=== PATIENT | male | born 1935 | race Caucasian/White ===

== ENCOUNTER → 2016-07-12 | Outpatient (CLI) | payer MEDICARE, OTHER ==
[2016-02-04 05:05] VITALS: BP 160/76
[~2016-07-12] MED LIST: ACET500T68 PO; BUPIVACAINE MPF 0.25% 10 ML VIAL. ONE; CELE200C PO; CHOL2000 PO; CYCL5TAB PO; FINA5TAB PO; FINA5TAB4 PO; HYDR-2666 PO; IOHEXOL 180 MG/ML 10 ML VIAL. ONE; MELO-156 PO; MULT-658 PO; MULT-659 PO; OMEP20CA9 PO; OMEP20TA PO; ONDA4TAB7 PO; SIMV10TA3 PO; SIMV80TA PO; [UNRECOGNIZED DRUG - CODE] PO; methylPREDNISolone ACETATE 40 MG/ML VIAL. ONE; methylPREDNISolone ACETATE 80 MG/ML VIAL. ONE
--- NOTE | 2016-07-13 06:52 | PAIN ---
DATE OF SERVICE: 07/12/2016 PROGRESS NOTE FOR PAIN CLINIC DIAGNOSES: 1. Cervical radiculopathy with cervical degenerative disk disease. 2. Lumbar radiculopathy with lumbar degenerative disk disease, spinal stenosis and spondylosis. HISTORY OF PRESENT ILLNESS: The patient is a 80-year-old male who returns for followup status post lumbar epidural steroid injections x 2, second one on 03/16/2016. The patient reports he did very well with this, about 50% improvement in his low back and right leg pain. The pain is returning now over the past 3-4 weeks, increase in right-sided low hip and gluteus, radiating into the posterior gluteus, posterior thigh and feels like it is in the bone on the right side by his description, anywhere from a 3 to an 8 on a scale of 10, worse with walking, worse with sitting, but does not awaken him from sleep at night. The patient feels better when he is ambulating for a shorter period of time, but also does a lot of ballroom dancing and when he is dancing, he does not have any pain that he notices in this area of the right hip posteriorly. The patient reports still some pain down the leg, but across the back, but also very much improved with activities such as dancing and bowling, it does not bother him as well either. The patient reports no new motor or sensory deficits, no new bowel or bladder incontinence or other complaints. PHYSICAL EXAMINATION: VITAL SIGNS: The patient's blood pressure is 122/70, pulse 52, respirations 18, temperature is 98.2 degrees Fahrenheit, height is 5 feet 11 inches, weight is 204 pounds. GENERAL: The patient is awake, alert, oriented, appropriate, has a very pleasant demeanor. HEENT: Shows normocephalic, atraumatic. Extraocular movements intact, symmetrical. Oral cavity, his mucous membranes are moist and pink. Dentition is intact. NECK: Shows anterior throat supple. Swallow reflex is symmetrical. Neck shows good rotational motion including extension and flexion as well as right and left lateral rotation without significant pain reported. CHEST: Shows normal on inspection. Breath sounds are clear to auscultation bilaterally. HEART: Shows S1 and S2 clear. No murmurs auscultated. ABDOMEN: Soft, nontender, nondistended. No palpable organomegaly is noted. No rebound or guarding demonstrated. BACK: Shows spine grossly in the midline. Lumbar paraspinous musculature is symmetrical in appearance, with palpation is moderately tender in the low lumbar distribution, but only diffusely, also some significant tenderness over the posterior superior iliac spine on the right side with direct palpation, but not over the sacroiliac region inferior to this and some mild tenderness in the gluteus musculature just lateral to this, posterior superior iliac spine as well. EXTREMITIES: Lower extremities show deep tendon reflexes 1+ in the patellar and tendo calcaneus tendons, are equal. Motor exam is strong with 5/5 dorsiflexion and extension and is equal and symmetrical. PLAN: Options were discussed with the patient. The patient's old chart was reviewed as was his current medication regimen and updated. Current review of systems updated today as well. We will proceed with the third in the series of lumbar epidural steroid injection under fluoroscopic guidance. Risks were again discussed including, but not limited to bleeding, infection, possibility of epidural hematoma, subsequent neurological compromise, dural puncture, headaches, spinal cord and/or nerve damage, side effects of steroid medication and poor results regarding pain control. The patient understands and wishes to proceed. The patient will return to the clinic in approximately 2 weeks for followup, was counseled on his return appointment, activity level and side effects to be aware of. DIAGNOSIS: Lumbar radiculopathy with lumbar degenerative disk disease, spinal stenosis and lumbar spondylosis. PROCEDURE: Lumbar epidural steroid injection in a translaminar approach at the L5-S1 level using C-arm fluoroscopic guidance under sterile prep and drape using local anesthesia. MEDICATIONS INJECTED: 120 mg of Depo-Medrol plus 10 mL of preservative-free normal saline and 2 mL of Isovue for contrast. CONDITION AT DISCHARGE: Stable. The patient tolerated the procedure well, had no complications. LEXI AUGUST MD DR: HENRY/hilary JOB#: [id number] / [id number]
== END | disposition home or self-care (01) ==
LOC: PNCL 10:29
PROVIDERS: ATTEND Anesthesiology
DX: M51.16 Intervertebral disc disorders with radiculopathy, lumbar region (principal); M47.26 Other spondylosis with radiculopathy, lumbar region; M48.06 Spinal stenosis, lumbar region; E78.00 Pure hypercholesterolemia, unspecified; K21.9 Gastro-esophageal reflux disease without esophagitis; M19.90 Unspecified osteoarthritis, unspecified site; Z96.653 Presence of artificial knee joint, bilateral
CPT/HCPCS: 62323; J1030; J1040; J3490

== ENCOUNTER → 2016-09-20 | Outpatient (CLI) | payer MEDICARE, OTHER ==
[2016-02-04 05:05] VITALS: BP 160/76
[~2016-09-20] MED LIST changes: -BUPIVACAINE MPF 0.25% 10 ML VIAL. ONE
--- NOTE | 2016-09-20 10:44 | PAIN ---
DATE OF SERVICE: 09/20/2016 PROGRESS NOTE FOR PAIN CLINIC DIAGNOSES: 1. Cervical radiculopathy with cervical degenerative disk disease. 2. Lumbar radiculopathy with lumbar degenerative disk disease, lumbar spinal stenosis and spondylosis. HISTORY OF PRESENT ILLNESS: The patient is a 81-year-old male who returns for followup status post lumbar epidural steroid injection x 2 on 07/12/2016. The patient reports that he did very well with this with about an 80% improvement in the low back pain and lower extremity pain. The patient reports that since that time however, he has had increasing pain over the past 2-3 weeks, which has been the worst pain, has had in his back that he can remember. The patient reports worse with standing, walking, and changing positions, but better with bowling and better with dancing, which he does actively and does this frequently. The patient reports that standing and lying is significantly causing the pain to be worse - with standing still, the patient reports that the pain is a 10 on a scale of 10 at its worse; at least, it is an 8 on a scale of 10. The patient reports no new motor or sensory deficits, no new bowel or bladder incontinence. He has significant pain across the low back into the bilateral posterior gluteus with standing and walking activities. The patient reports that it is aching, sharp, dull, and severe. PHYSICAL EXAMINATION: VITAL SIGNS: The patient's blood pressure is 147/74, pulse 50, respirations are 18, and temperature is 98.1 degrees Fahrenheit. Height is 5 feet 11 inches and weighs 204 pounds. GENERAL: The patient is awake, alert, oriented, and appropriate, very pleasant demeanor. HEENT: Shows normocephalic, atraumatic. Extraocular movements are intact and symmetrical. The patient wears eye glasses. Oral cavity shows that mucous membranes are moist and pink. Dentition is intact. NECK: Shows that anterior throat is supple without palpable lymphadenopathy noted. Swallow reflex is symmetrical. CHEST: Shows normal on inspection. Breath sounds were clear to auscultation bilaterally. HEART: Shows S1 and S2 clear. ABDOMEN: Soft, nontender, and nondistended. BACK: Shows spine grossly midline. Normal-appearing thoracic kyphosis and lumbar lordotic curvature. Lumbar paraspinous muscle shows symmetrical. On inspection with palpation, shows some mild tenderness with palpation bilaterally with no radiation, but only diffusely in the lower lumbar paraspinous muscles. The patient shows good rotational motion both laterally, as well as extension and flexion. EXTREMITIES: The patient's lower extremities showed deep tendon reflexes 1+ in the patellar and tendocalcaneus tendons. Motor exam is strong with 5/5 dorsiflexion, extension, quadriceps and hamstring flexion and equal. Options were discussed with the patient. The patient's old chart was reviewed, as well as his current medication regimen updated. Current review of systems updated today as well. We will proceed with the lumbar epidural steroid injection, a third in this series. Risks were discussed with the patient including, but not limited to bleeding, infection, possibility of epidural hematoma and subsequent neurologic compromise, dural puncture, headaches, spinal cord and/or nerve damage, side effects of steroid medication, and poor results regarding pain control. The patient understands and wishes to proceed. The patient will return to clinic in approximately 2 weeks for followup. He was counseled as to return appointment, activity level, and side effects to be aware of. DIAGNOSES: Lumbar radiculopathy with lumbar degenerative disk disease, spinal stenosis, and spondylosis. PROCEDURES: Lumbar epidural steroid injection via translaminar approach at the L5-S1 level using C-arm fluoroscopic guidance and sterile prep and drape using local anesthetic. MEDICATION INJECTED: A total of 120 mg of Depo-Medrol plus 10 mL preservative-free normal saline and 2 mL of Isovue for contrast. CONDITION AT DISCHARGE: Stable. The patient tolerated the procedure well, had no complications. LEXI AUGUST MD DR: HENRY/hilary JOB#: [id number] / [id number]
== END | disposition home or self-care (01) ==
LOC: PNCL 08:19
PROVIDERS: ATTEND Anesthesiology
DX: M51.16 Intervertebral disc disorders with radiculopathy, lumbar region (principal); M47.26 Other spondylosis with radiculopathy, lumbar region; M48.06 Spinal stenosis, lumbar region; E78.00 Pure hypercholesterolemia, unspecified; K21.9 Gastro-esophageal reflux disease without esophagitis; M19.90 Unspecified osteoarthritis, unspecified site; Z96.653 Presence of artificial knee joint, bilateral
CPT/HCPCS: 62323; J1030; J1040

== ENCOUNTER → 2016-11-16 | Outpatient (CLI) | payer MEDICARE, OTHER ==
[2016-02-04 05:05] VITALS: BP 160/76
[~2016-11-16] MED LIST changes: +BUPIVACAINE MPF 0.25% 10 ML VIAL. ONE; -HYDR-2666 PO; +HYDR-2758 PO; -IOHEXOL 180 MG/ML 10 ML VIAL. ONE; -MELO-156 PO; +MELO7.5T29 PO; -OMEP20TA PO; +OMEP20TA8 PO; -methylPREDNISolone ACETATE 80 MG/ML VIAL. ONE
--- NOTE | 2016-11-16 10:58 | PN ---
DATE: 11/16/2016 PROGRESS NOTE FOR PAIN CLINIC DIAGNOSES: 1. Cervical radiculopathy with cervical degenerative disk disease. 2. Lumbar radiculopathy with lumbar degenerative disk disease, spinal stenosis and spondylosis. 3. Myofascial pain. HISTORY OF PRESENT ILLNESS: The patient is a 81-year-old male who returns for followup status post lumbar epidural steroid injections x 3, last seen on 09/20/2016. The patient reports he did very well , doing much better; however, about a week ago, he was doing some work at home changing out a window blind where he was required to sit on the sink and rotate his body to the right side, reaching up over his head and strained his muscles in the right neck and shoulder. The patient reports he has had significant pain since that time in the right shoulder to the point where he can barely get dressed, use his right upper extremity or raise it over about 45 degrees from his body when at resting position. The patient reports he is significantly tender in the neck in the shoulder radiating to the upper arm on the right side only. 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 The patient reports his back is doing much better, some tenderness and tightness in the low back, but no radicular pain at this time and is very pleased with his progress. The patient reports no new motor or sensory deficits, no new bowel or bladder incontinence or other complaints. The patient reports the pain has not awakened him from sleep. He has been able to sleep well as long as he keeps his arm to this side. He has not been using a sling or any other immobilizing devices to deal with the arm. The patient rates his pain as an 8-10 on a scale of 10 at its worst in the right shoulder and neck. PHYSICAL EXAMINATION: VITAL SIGNS: Today, the patient's blood pressure is 112/70, pulse is 60, respirations 18, temperature 97.9 degrees Fahrenheit. Height is 5 feet 11 inches, weighs 205 pounds. GENERAL: The patient is awake, alert, oriented, appropriate, has a very pleasant demeanor. HEENT: Head shows normocephalic, atraumatic. The patient wears eye glasses. Extraocular movements are intact, symmetrical. Oral cavity shows mucous membranes moist and pink. NECK: Shows anterior throat supple. CHEST: Shows normal on inspection. Breath sounds are clear to auscultation bilaterally. HEART: Shows S1 and S2 clear. ABDOMEN: Soft, nontender, nondistended. No palpable organomegaly is noted. No rebound or guarding demonstrated. BACK: The patient's back shows spine grossly in the midline with inspection of the cervical paraspinous musculature symmetrical, with palpation shows some moderate tenderness with palpation in the inferior aspect of the cervical paraspinous musculature on the right only and into the superior medial trapezius as well as the lateral trapezius is very firm, rope-like, firm, tender musculature exquisitely tender to palpation, but without specific radiation on the right side with palpation consistent with trigger point areas of musculature. This is true in to the cervical paraspinous muscles as well to the middle distribution, but more in the lower and superior medial and lateral trapezius, left side is supple without tenderness. The patient also shows significant tenderness in the lumbar spine with lumbar paraspinous musculature very firm rope-like musculature, worse on the right than the left as well without specific radiation. Upper extremities show deep tendon reflexes 2+ in the biceps and triceps tendons. Motor exam is strong with cigar head pegger strength rated at 5/5 as is biceps and triceps flexion; however, at abduction of the shoulder past 45 degrees is significantly painful in the base of the neck on the right side in the right superior shoulder. The patient, even with passive motion shows significant tenderness and pulling away from the examining hand with raising the arm over 45 degrees laterally. Left side shows full rotational motion without difficulty at the shoulder. EXTREMITIES: Lower extremities showed deep tendon reflexes 1+ in the patellar and tendo calcaneus tendons. Motor exam is strong with dorsiflexion, extension, quadriceps and hamstring flexion and equal. Peripheral pulses are equal at 2+ in the radial distribution and 1+ posterior tibial bilaterally. No peripheral edema in any of the extremities is noted. Options were discussed with the patient and the patient's old chart was reviewed as his current medication regimen updated. Current review of systems updated today as well and we will proceed with trigger point injections of the right cervical paraspinous musculature, right trapezius as well as the bilateral lumbar paraspinous musculature. Risks were again discussed including, but not limited to bleeding, infection, possibility of intravascular injection sequelae, spread of local anesthetic and numbness, pneumothorax, side effects of steroid medication and poor results regarding pain control. The patient understands and wishes to proceed. The patient will return to clinic in approximately 2 weeks for followup. She was counseled on return appointment, activity levels and side effects to be aware of. Also, counseled the patient on stretching and strengthening exercises, heat and cold application of the shoulder in the low back especially. DIAGNOSIS: Myofascial pain. PROCEDURE: Trigger point injections in the right inferior cervical paraspinous musculature as well as the superior medial and lateral trapezius and bilateral lumbar paraspinous musculature under sterile prep and drape using local anesthetic. Medication injected is a total of 40 mg Depo-Medrol plus 10 mL of 0.25% bupivacaine after negative aspiration at each injection. CONDITION AT DISCHARGE: Stable. The patient tolerated procedure well, had no complications. LEXI AUGUST MD DR: HENRY/hilary JOB#: [id number] / [id number]
== END | disposition home or self-care (01) ==
LOC: PNCL 08:24
PROVIDERS: ATTEND Anesthesiology
DX: M79.1 Myalgia (principal); M51.16 Intervertebral disc disorders with radiculopathy, lumbar region; M47.26 Other spondylosis with radiculopathy, lumbar region; M48.06 Spinal stenosis, lumbar region; M50.10 Cervical disc disorder with radiculopathy, unspecified cervical region; E78.00 Pure hypercholesterolemia, unspecified; K21.9 Gastro-esophageal reflux disease without esophagitis; M19.90 Unspecified osteoarthritis, unspecified site; Z96.653 Presence of artificial knee joint, bilateral; Z88.0 Allergy status to penicillin; Z88.8 Allergy status to other drugs, medicaments and biological substances; Z91.048 Other nonmedicinal substance allergy status; Z79.82 Long term (current) use of aspirin
CPT/HCPCS: 20553; J1030; J3490

== ENCOUNTER 2016-12-05 05:25 | Emergency (ER) | payer MEDICARE, OTHER ==
[~2016-12-05] VITALS: Ht 180.3 cm; Wt 88.9 kg
[~2016-12-05 05:25] MED LIST changes: -BUPIVACAINE MPF 0.25% 10 ML VIAL. ONE; -methylPREDNISolone ACETATE 40 MG/ML VIAL. ONE
--- NOTE | 2016-12-05 05:58 | PHYS DOC ---
Past Medical History Past Medical History: High Cholesterol, Other Additional Past Medical Histor: enlarged prostate, irregular rhythm, ulcers Past Surgical History: Knee Replacement, Tonsillectomy, Other Additional Past Surgical Histo: bilateral knee, adnoidectomy, carpel tunnel surgery Alcohol Use: Rarely Drug Use: None Adult General Chief Complaint Chief Complaint: MULTIPLE COMPLAINTS HPI HPI Patient is a 81 year old male who presents with multiple episodes of diarrhea starting yesterday. Patient describes watery stools with migratory lower abdominal cramping and pain dizziness when standing. No fever chills or sweats. No nausea, vomiting, flank pain, epigastric pain, urinary frequency urgency. No recent antibiotics or known GI illness exposure. No other acute symptoms or complaints. Review of Systems Review of Systems ROS as per HPI. Current Medications Current Medications Current Medications Medications (Trade) Dose Ordered Sig/Pura Start Time Stop Time Status Last Admin Dose Admin Hyoscyamine (Anaspaz) 0.125 mg 1X ONCE 12/05/16 09:30 12/05/16 09:32 DC 12/05/16 09:38 0.125 MG Info (Do NOT chart on this entry -- for MONITORING) 1 each PRN DAILY PRN 12/05/16 07:45 12/07/16 07:44 Iohexol (Omnipaque 300 Mg/ml) 75 ml 1X ONCE 12/05/16 07:45 12/05/16 07:46 DC 12/05/16 07:49 75 ML Ondansetron HCl (Zofran) 4 mg 1X ONCE 12/05/16 06:00 12/05/16 06:01 DC 12/05/16 05:50 4 MG Sodium Chloride 1,000 ml @ 125 mls/hr 1X ONCE 12/05/16 06:00 12/05/16 13:59 12/05/16 05:50 125 MLS/HR Allergies Allergies Allergies Coded Allergies Type Severity Reaction Last Updated Verified Penicillins Allergy Intermediate 10/20/13 Yes mold Allergy Intermediate Swelling, Pt states eyes and nose run, throat becomes scratc 01/31/16 Yes penicillin Allergy Intermediate Rash 01/31/16 Yes aluminum hydroxide Adverse Reaction Mild 03/24/13 Yes aspirin Adverse Reaction Mild 03/24/13 Yes calcium carbonate Adverse Reaction Mild 03/24/13 Yes magnesium Adverse Reaction Mild 03/24/13 Yes Physical Exam Physical Exam L appearing older male no acute distress clear lungs regular rate and rhythm mild bradycardia baseline per patient, mild diffuse abdominal tenderness with no guarding or rebound. No mass or megaly. Nondistended. Normal extremities Constitutional: Well developed, well nourished, no acute distress, non-toxic appearance. [] HENT: Normocephalic, atraumatic, bilateral external ears normal, oropharynx moist, no oral exudates, nose normal. [] Eyes: PERRLA, EOMI, conjunctiva normal, no discharge. [] Neck: Normal range of motion, no tenderness, supple, no stridor. [] Cardiovascular:Heart rate regular rhythm, no murmur [] Lungs & Thorax: Bilateral breath sounds clear to auscultation [] Abdomen: Bowel sounds normal, soft, no distention, increased bowel sounds. [] Skin: Warm, dry, no erythema, no rash. [] Back: No tenderness, no CVA tenderness. [] Extremities: No tenderness, no cyanosis, no clubbing, ROM intact, no edema. [] Neurologic: Alert and oriented X 3, normal motor function, normal sensory function, no focal deficits noted. [] Psychologic: Affect normal, judgement normal, mood normal. [] Current Patient Data Vital Signs Vital Signs Date Time Temp Pulse Resp B/P (MAP) Pulse Ox O2 Delivery O2 Flow Rate FiO2 12/05/16 09:30 48 18 176/88 (117) 95 Room Air 12/05/16 05:37 97.5 97.5 Lab Values Laboratory Tests Test 12/05/16 05:50 12/05/16 06:20 White Blood Count 6.2 x10^3/uL (4.0-11.0) Red Blood Count 4.20 x10^6/uL (4.30-5.70) L Hemoglobin 13.5 g/dL (13.0-17.5) Hematocrit 40.2 % (39.0-53.0) Mean Corpuscular Volume 96 fL (79-100) Mean Corpuscular Hemoglobin 32 pg (25-35) Mean Corpuscular Hemoglobin Concent 34 g/dL (31-37) Red Cell Distribution Width 13.0 % (11.5-14.5) Platelet Count 112 x10^3/uL (140-400) L Neutrophils (%) (Auto) 64 % (31-73) Lymphocytes (%) (Auto) 27 % (24-48) Monocytes (%) (Auto) 8 % (0-9) Eosinophils (%) (Auto) 2 % (0-3) Basophils (%) (Auto) 0 % (0-3) Neutrophils # (Auto) 3.9 x10^3uL (1.8-7.7) Lymphocytes # (Auto) 1.7 x10^3/uL (1.0-4.8) Monocytes # (Auto) 0.5 x10^3/uL (0.0-1.1) Eosinophils # (Auto) 0.1 x10^3/uL (0.0-0.7) Basophils # (Auto) 0.0 x10^3/uL (0.0-0.2) Sodium Level 139 mmol/L (136-145) Potassium Level 3.8 mmol/L (3.5-5.1) Chloride Level 105 mmol/L (98-107) Carbon Dioxide Level 26 mmol/L (21-32) Anion Gap 8 (6-14) Blood Urea Nitrogen 10 mg/dL (8-26) Creatinine 1.0 mg/dL (0.7-1.3) Estimated GFR (Cockcroft-Gault) 72.1 BUN/Creatinine Ratio 10 (6-20) Glucose Level 111 mg/dL (70-99) H Calcium Level 8.6 mg/dL (8.5-10.1) Total Bilirubin 0.8 mg/dL (0.2-1.0) Aspartate Amino Transferase (AST) 20 U/L (15-37) Alanine Aminotransferase (ALT) 26 U/L (16-63) Alkaline Phosphatase 37 U/L (46-116) L Total Protein 6.6 g/dL (6.4-8.2) Albumin 3.6 g/dL (3.4-5.0) Albumin/Globulin Ratio 1.2 (1.0-1.7) Lipase 158 U/L (73-393) Urine Collection Type Unknown Urine Color Yellow Urine Clarity Clear Urine pH 6.0 Urine Specific Nathalie 1.010 Urine Protein Negative mg/dL (NEG-TRACE) Urine Glucose (UA) Negative mg/dL (NEG) Urine Ketones (Stick) Negative mg/dL (NEG) Urine Blood Negative (NEG) Urine Nitrite Negative (NEG) Urine Bilirubin Negative (NEG) Urine Urobilinogen Dipstick 0.2 mg/dL (0.2 mg/dL) Urine Leukocyte Esterase Negative (NEG) Urine RBC 0 /HPF (0-2) Urine WBC 0 /HPF (0-4) Urine Squamous Epithelial Cells Few /LPF Urine Bacteria 0 /HPF (0-FEW) Urine Mucus Slight /LPF Laboratory Tests 12/05/16 05:50 Laboratory Tests 12/05/16 05:50 EKG EKG [] Radiology/Procedures Radiology/Procedures [] Course & Med Decision Making Course & Med Decision Making Pertinent Labs and Imaging studies reviewed. (See chart for details) Work up in progress. Care endorsed to oncoming ERP at 600.] BENJY Biggs attending note Dr. Dilan Wilkinson. Care assumed by me at 06 100 for clinical reevaluation and to follow lab results and CT scan, correlate clinically and disposition patient Upon my evaluation patient was well-appearing smiling comfortable without complaint. He has intermittent crampy pain which was resolved at that time. He had some mild nausea which was also resolved. No bloody stool or black stool. He 's hemodynamically stable with his baseline of chronic bradycardia. Patient does have some diffuse abdominal tenderness without guarding or rebound mass or megaly he has normal bowel sounds. We will do CT abdomen and pelvis with contrast for full evaluation. Return results unremarkable. Patient remains clinically stable and well- appearing. CT results show prominent appendix howeverhe call inflammatory changes or secondary signs of appendicitis. Patient also has diverticulosis but no evidence of diverticulitis. Mild evidence of nonspecific colitis without complication. Reevaluation patient with mild right lower quadrant tenderness but no guarding or rebound. Given equivocal findings regarding appendix on CT, case discussed with Dr. Lara surgeon on-call. Dr. Lara provided stat consultation in the emergency department and saw the patient examined him and discussed the case at length. Given the very low suspicion of acute appendicitis , all parties are comfortable with outpatient follow-up tomorrow in Dr. Lara' s office. It appears that the patient most likely has a viral syndrome with a nonspecific colitis. He is hemodynamically stable able to tolerate by mouth and has no symptoms or pain on reevaluation prior to discharge. Patient is able to ambulate without difficulty. He has family agree with outpatient follow-up tomorrow and strict return precautions given. Patient will be dispensed for Zofran and Levsin for use as needed. Dr. Lara agrees and robotics not clinically indicated for this patient Dragon Disclaimer Dragon Disclaimer This electronic medical record was generated, in whole or in part, using a voice recognition dictation system. Departure Departure Impression: Primary Impression: Non-specific colitis Additional Impressions: Diarrhea Viral syndrome Abdominal pain Diverticulosis Disposition: 01 HOME, SELF-CARE Condition: STABLE Referrals: DILAN DENNEY MD (PCP) Patient Instructions: Abdominal Pain (Nonspecific), Colitis, Diverticulosis, Viral Gastroenteritis Additional Instructions: It appears that you're diarrhea and nausea are result of gastroenteritis. This is an abdominal infection characterized by nausea, often with vomiting, as well as diarrhea. It is typically caused by a viral infection and should get better on its own. He sure to stay well hydrated by drinking plenty of nonalcoholic fluids. Take Zofran under your tongue as needed for nausea every 4 hours. Use less than under your tongue 3 times a day as needed for crampy abdominal pain. Follow-up with Dr. Mancini in his office tomorrow as scheduled for reevaluation and further treatment as needed. Return immediately for new severe or worsening symptoms Scripts Ondansetron (ZOFRAN ODT) 4 Mg Tab.rapdis 1 TAB SL Q4HRS Y for VOMITING, #15 TAB Prov: DILAN WILKINSON MD 12/05/16 Hyoscyamine Sulfate (LEVSIN-SL) 0.125 Mg Tab.subl 0.125 MG SL TID Y for crampy abdominal pain, #21 TAB Prov: DILAN WILKINSON MD 12/05/16 Ondansetron (ZOFRAN ODT) 4 Mg Tab.rapdis 1 TAB SL Q4HRS Y for VOMITING, #15 TAB Prov: DILAN WILKINSON MD 12/05/16 Hyoscyamine Sulfate (LEVSIN-SL) 0.125 Mg Tab.subl 0.125 MG SL TID, #21 TAB Prov: DILAN WILKINSON MD 12/05/16 Problem Qualifiers EDWIN FONSECA DO Dec 05, 2016 05:58 DILAN WILKINSON MD Dec 05, 2016 07:52
[2016-12-05] MEDS ORDERED: ONDANSETRON PF 4 MG/2 ML VIAL. IV ONE (06:00)
[2016-12-05] MEDS ORDERED: IV NORMAL SALINE 1000ML BAG 1,000 ML IV ONE (06:00)
[2016-12-05 06:13] LABS: BASO % 0 % (0-3); EOS % 2 % (0-3); HEMATOCRIT 40.2 % (39.0-53.0); HEMOGLOBIN 13.5 g/dL (13.0-17.5); LYMPH # 1.7 x10^3/uL (1.0-4.8); LYMPH % 27 % (24-48); MEAN CORPUSCULAR HEMOGLOBIN 32 pg (25-35); MEAN CORPUSCULAR HGB CONC 34 g/dL (31-37); MEAN CORPUSCULAR VOLUME 96 fL (79-100); MONO % 8 % (0-9); NEUT % 64 % (31-73); PLATELET COUNT 112 x10^3/uL (140-400); WHITE BLOOD COUNT 6.2 x10^3/uL (4.0-11.0)
[2016-12-05 06:18] LABS: CALCIUM 8.6 mg/dL (8.5-10.1); GFR 72.1; POTASSIUM 3.8 mmol/L (3.5-5.1)
[2016-12-05 06:24] LABS: ALBUMIN 3.6 g/dL (3.4-5.0); ALBUMIN/GLOBULIN RATIO 1.2 (1.0-1.7); TOTAL BILIRUBIN 0.8 mg/dL (0.2-1.0); TOTAL PROTEIN 6.6 g/dL (6.4-8.2)
[2016-12-05 06:47] LABS: BILIRUBIN,URINE NEGATIVE (NEG); GLUCOSE,URINE NEGATIVE (NEG); NITRITE,URINE NEGATIVE (NEG); PROTEIN,URINE NEGATIVE (NEG-TRACE); UROBILINOGEN,URINE 0.2 mg/dL (0.2 mg/dL)
[2016-12-05 07:02] LABS: BACTERIA,URINE 0 /HPF (0-FEW); RBC,URINE 0 /HPF (0-2); SQUAMOUS EPITHELIAL CELL,UR FEW /LPF; WBC,URINE 0 /HPF (0-4)
[2016-12-05] MEDS ORDERED: IOHEXOL 300 MG/ML 75 ML VIAL IV ONE (07:45)
[2016-12-05] MEDS ORDERED: CONTRAST GIVEN MC PRN (07:45)
--- NOTE | 2016-12-05 08:17 | RAD ---
CT abdomen/pelvis with IV contrast Indication: 81-year-old male with abdominal pain and diarrhea. History of ulcers. Technique: CT abdomen/pelvis with 75 mL of Omnipaque 300 with multi planar reformats. Comparison: Previous CT from 09/13/2011 Findings: Heart is normal in size. No pericardial or pleural effusion. Clear lung bases. 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 No other liver lesions. Spleen is top normal in size without focal lesion. No radiopaque gallstones. No pericholecystic fluid of abnormal thickening. Pancreas is within normal limits without peripancreatic inflammatory changes. Adrenal glands show no nodularity. Mild bilateral perinephric stranding densities, nonspecific. No renal stones. No hydronephrosis. No pathologically enlarged abdominal or pelvic adenopathy. Small sliding hiatal hernia. No bowel obstruction. Sigmoid colon diverticulosis. Diffuse mild wall thickening of the sigmoid and rectosigmoid colon may be secondary to suboptimal distention. Appendix is visualized measuring 7 mm in diameter without periappendiceal inflammatory changes or appendicolith Scattered atherosclerotic disease of abdominal aorta noted. Calcified plaque seen at the origin of the celiac axis and SMA. Bladder show no focal lesion. Prostate is not enlarged. No suspicious bony lesions. Degenerative disc disease noted at L1-L2. Lower lumbar spine facet arthropathy. Impression: 1. Mildly prominent appendix, nonspecific. No periappendiceal inflammatory changes to suggest acute appendicitis. 2. Sigmoid diverticulosis. Diffuse mild wall thickening of the sigmoid colon may be secondary to suboptimal distention or submucosal edema. No pericolic inflammatory changes. PQRS Compliance Statement: One or more of the following individualized dose reduction techniques were utilized for this examination: 1. Automated exposure control 2. Adjustment of the mA and/or kV according to patient size 3. Use of iterative reconstruction technique
[2016-12-05] MEDS ORDERED: HYOSCYAMINE 0.125 MG TAB.RAPDIS PO ONE (09:30)
[2016-12-05] MEDS ORDERED: HYOS0.1265 SL ×2 (10:39→11:17)
[2016-12-05] MEDS ORDERED: ONDA4TAB10 SL ×2 (10:39→11:17)
--- NOTE | 2016-12-05 10:53 | PDOC2 ---
CONSULT Date of Consult Date of Consult DATE: 12/05/16 TIME: 10:45 Reason for Consult Reason for Consult: abdominal pain, diarrhea Referring Physician Referring Physician: Minh Identification/Chief Complaint Chief Complaint abd pain, diarrhea Problems: Source Source: Patient History of Present Illness Reason for Visit: 81 yo M with one day history of diffuse crampy abd pain, profuse watery diarrhea. Denies sick exposures or unusual food. Denies N/V, denies anorexia Past Medical History Cardiovascular: Hyperlipidemia GI: GERD Past Surgical History Past Surgical History: Total knee replacement (bilateral), Other Family History Family History: No Significant Social History Quit ALCOHOL: rare Drugs: None Lives: Alone Current Problem List Problem List Problems Medical Problems: (1) Abdominal pain Status: Acute (2) Diarrhea Status: Acute (3) Diverticulosis Status: Acute (4) Non-specific colitis Status: Acute (5) Viral syndrome Status: Acute Current Medications Current Medications Current Medications Sodium Chloride 1,000 ml @ 125 mls/hr 1X ONCE IV Last administered on 05:50; Start 12/05/16 at 06:00; Stop 12/05/16 at 13:59 Ondansetron HCl (Zofran) 4 mg 1X ONCE IV Last administered on 12/05/16 05:50 ; Start 12/05/16 at 06:00; Stop 12/05/16 at 06:01; Status DC Iohexol (Omnipaque 300 Mg/ml) 75 ml 1X ONCE IV Last administered on 12/05/16 07:49; Start 12/05/16 at 07:45; Stop 12/05/16 at 07:46; Status DC Info (Do NOT chart on this entry -- for MONITORING) 1 each PRN DAILY PRN MC SEE COMMENTS; Start 12/05/16 at 07:45; Stop 12/07/16 at 07:44 Hyoscyamine (Anaspaz) 0.125 mg 1X ONCE PO Last administered on 12/05/16 09:38 ; Start 12/05/16 at 09:30; Stop 12/05/16 at 09:32; Status DC Active Scripts Active Zofran Odt (Ondansetron) 4 Mg Tab.rapdis 1 Tab SL Q4HRS PRN Levsin-Sl (Hyoscyamine Sulfate) 0.125 Mg Tab.subl 0.125 Mg SL TID Reported Vitamin D (Cholecalciferol (Vitamin D3)) 2,000 Unit Capsule 1 Cap PO DAILY Centrum Men's Tablet (Multivits,Ca,Min/Iron/FA/Lycop) 1 Each Tablet 1 Each PO Simvastatin 10 Mg Tablet 80 Mg PO DAILY Proscar (Finasteride) 5 Mg Tablet 5 Mg PO HS Omeprazole 20 Mg Tablet.dr 20 Mg PO DAILY06 Acetaminophen 500 Mg Tablet 500 Mg PO PRN Allergies Allergies: Coded Allergies: Penicillins (Verified Allergy, Intermediate, 10/20/13) mold (Verified Allergy, Intermediate, Swelling, Pt states eyes and nose run, throat becomes scratc, 01/31/16) penicillin (Verified Allergy, Intermediate, Rash, 01/31/16) aluminum hydroxide (Verified Adverse Reaction, Mild, 03/24/13) aspirin (Verified Adverse Reaction, Mild, 03/24/13) calcium carbonate (Verified Adverse Reaction, Mild, 03/24/13) magnesium (Verified Adverse Reaction, Mild, 03/24/13) ROS Gastrointestinal: Yes Abdominal Pain, Yes Diarrhea Physical Exam General: Alert, Oriented X3, Cooperative, No acute distress HEENT: Atraumatic, EOMI Abdomen: Soft, Other (mild diffuse TTP, gerard notable in RLQ) Extremities: No clubbing, No cyanosis, No edema Skin: No rashes, No breakdown Neuro: Normal gait, Normal speech Psych/Mental Status: Mental status NL, Mood NL MUSCULOSKELETAL: No joint tenderness, No deformity Vitals VITALS Vital Signs Date Time Temp Pulse Resp B/P (MAP) Pulse Ox O2 Delivery O2 Flow Rate FiO2 12/05/16 09:30 48 18 176/88 (117) 95 Room Air 12/05/16 05:37 97.5 97.5 Labs Labs Laboratory Tests Test 12/05/16 05:50 12/05/16 06:20 White Blood Count 6.2 x10^3/uL (4.0-11.0) Red Blood Count 4.20 x10^6/uL (4.30-5.70) Hemoglobin 13.5 g/dL (13.0-17.5) Hematocrit 40.2 % (39.0-53.0) Mean Corpuscular Volume 96 fL (79-100) Mean Corpuscular Hemoglobin 32 pg (25-35) Mean Corpuscular Hemoglobin Concent 34 g/dL (31-37) Red Cell Distribution Width 13.0 % (11.5-14.5) Platelet Count 112 x10^3/uL (140-400) Neutrophils (%) (Auto) 64 % (31-73) Lymphocytes (%) (Auto) 27 % (24-48) Monocytes (%) (Auto) 8 % (0-9) Eosinophils (%) (Auto) 2 % (0-3) Basophils (%) (Auto) 0 % (0-3) Neutrophils # (Auto) 3.9 x10^3uL (1.8-7.7) Lymphocytes # (Auto) 1.7 x10^3/uL (1.0-4.8) Monocytes # (Auto) 0.5 x10^3/uL (0.0-1.1) Eosinophils # (Auto) 0.1 x10^3/uL (0.0-0.7) Basophils # (Auto) 0.0 x10^3/uL (0.0-0.2) Sodium Level 139 mmol/L (136-145) Potassium Level 3.8 mmol/L (3.5-5.1) Chloride Level 105 mmol/L (98-107) Carbon Dioxide Level 26 mmol/L (21-32) Anion Gap 8 (6-14) Blood Urea Nitrogen 10 mg/dL (8-26) Creatinine 1.0 mg/dL (0.7-1.3) Estimated GFR (Cockcroft-Gault) 72.1 BUN/Creatinine Ratio 10 (6-20) Glucose Level 111 mg/dL (70-99) Calcium Level 8.6 mg/dL (8.5-10.1) Total Bilirubin 0.8 mg/dL (0.2-1.0) Aspartate Amino Transf (AST/SGOT) 20 U/L (15-37) Alanine Aminotransferase (ALT/SGPT) 26 U/L (16-63) Alkaline Phosphatase 37 U/L (46-116) Total Protein 6.6 g/dL (6.4-8.2) Albumin 3.6 g/dL (3.4-5.0) Albumin/Globulin Ratio 1.2 (1.0-1.7) Lipase 158 U/L (73-393) Urine Collection Type Unknown Urine Color Yellow Urine Clarity Clear Urine pH 6.0 Urine Specific Mora 1.010 Urine Protein Negative mg/dL (NEG-TRACE) Urine Glucose (UA) Negative mg/dL (NEG) Urine Ketones (Stick) Negative mg/dL (NEG) Urine Blood Negative (NEG) Urine Nitrite Negative (NEG) Urine Bilirubin Negative (NEG) Urine Urobilinogen Dipstick 0.2 mg/dL (0.2 mg/dL) Urine Leukocyte Esterase Negative (NEG) Urine RBC 0 /HPF (0-2) Urine WBC 0 /HPF (0-4) Urine Squamous Epithelial Cells Few /LPF Urine Bacteria 0 /HPF (0-FEW) Urine Mucus Slight /LPF Laboratory Tests Test 12/05/16 05:50 12/05/16 06:20 White Blood Count 6.2 x10^3/uL (4.0-11.0) Red Blood Count 4.20 x10^6/uL (4.30-5.70) Hemoglobin 13.5 g/dL (13.0-17.5) Hematocrit 40.2 % (39.0-53.0) Mean Corpuscular Volume 96 fL (79-100) Mean Corpuscular Hemoglobin 32 pg (25-35) Mean Corpuscular Hemoglobin Concent 34 g/dL (31-37) Red Cell Distribution Width 13.0 % (11.5-14.5) Platelet Count 112 x10^3/uL (140-400) Neutrophils (%) (Auto) 64 % (31-73) Lymphocytes (%) (Auto) 27 % (24-48) Monocytes (%) (Auto) 8 % (0-9) Eosinophils (%) (Auto) 2 % (0-3) Basophils (%) (Auto) 0 % (0-3) Neutrophils # (Auto) 3.9 x10^3uL (1.8-7.7) Lymphocytes # (Auto) 1.7 x10^3/uL (1.0-4.8) Monocytes # (Auto) 0.5 x10^3/uL (0.0-1.1) Eosinophils # (Auto) 0.1 x10^3/uL (0.0-0.7) Basophils # (Auto) 0.0 x10^3/uL (0.0-0.2) Sodium Level 139 mmol/L (136-145) Potassium Level 3.8 mmol/L (3.5-5.1) Chloride Level 105 mmol/L (98-107) Carbon Dioxide Level 26 mmol/L (21-32) Anion Gap 8 (6-14) Blood Urea Nitrogen 10 mg/dL (8-26) Creatinine 1.0 mg/dL (0.7-1.3) Estimated GFR (Cockcroft-Gault) 72.1 BUN/Creatinine Ratio 10 (6-20) Glucose Level 111 mg/dL (70-99) Calcium Level 8.6 mg/dL (8.5-10.1) Total Bilirubin 0.8 mg/dL (0.2-1.0) Aspartate Amino Transf (AST/SGOT) 20 U/L (15-37) Alanine Aminotransferase (ALT/SGPT) 26 U/L (16-63) Alkaline Phosphatase 37 U/L (46-116) Total Protein 6.6 g/dL (6.4-8.2) Albumin 3.6 g/dL (3.4-5.0) Albumin/Globulin Ratio 1.2 (1.0-1.7) Lipase 158 U/L (73-393) Urine Collection Type Unknown Urine Color Yellow Urine Clarity Clear Urine pH 6.0 Urine Specific Mora 1.010 Urine Protein Negative mg/dL (NEG-TRACE) Urine Glucose (UA) Negative mg/dL (NEG) Urine Ketones (Stick) Negative mg/dL (NEG) Urine Blood Negative (NEG) Urine Nitrite Negative (NEG) Urine Bilirubin Negative (NEG) Urine Urobilinogen Dipstick 0.2 mg/dL (0.2 mg/dL) Urine Leukocyte Esterase Negative (NEG) Urine RBC 0 /HPF (0-2) Urine WBC 0 /HPF (0-4) Urine Squamous Epithelial Cells Few /LPF Urine Bacteria 0 /HPF (0-FEW) Urine Mucus Slight /LPF Images Images Ct A/p-prominent appendix but no periappendiceal inflammation, prominent sigmoid colon Assessment/Plan Assessment/Plan suspect viral gastroenteritis d/w pt, pt's family and Dr. Minh GUSMAN for BRAT diet and d/c home will f/u in office tomorrow, if pt not improved, will consider lap appendectomy R/B/A d/w pt and pt's family Thanks for consult! MERE GONZALEZ MD Dec 05, 2016 10:52
[2016-12-05 11:15] VITALS: BP 154/74
[2016-12-06] MEDS ORDERED: BUPIVAC MPF-EPI 0.5%-1:200000 30 ML VIAL. ONE (07:32)
== END 2016-12-05 11:20 | disposition home or self-care (01) ==
LOC: ER 05:25
DX: K57.90 Diverticulosis of intestine, part unspecified, without perforation or abscess without bleeding (principal); K52.9 Noninfective gastroenteritis and colitis, unspecified; B34.9 Viral infection, unspecified; R19.7 Diarrhea, unspecified; K21.9 Gastro-esophageal reflux disease without esophagitis; E78.00 Pure hypercholesterolemia, unspecified; N40.0 Benign prostatic hyperplasia without lower urinary tract symptoms; Z96.653 Presence of artificial knee joint, bilateral; Z88.0 Allergy status to penicillin; Z88.6 Allergy status to analgesic agent; Z88.8 Allergy status to other drugs, medicaments and biological substances
CPT/HCPCS: 36415; 74177; 80053; 81001; 83690; 85025; 96361; 96374; 99285; J2405; J7030; Q9967; J3490

== ENCOUNTER → 2016-12-13 | Outpatient (CLI) | payer MEDICARE, OTHER ==
[2016-12-05 11:15] VITALS: BP 154/74
[~2016-12-13] MED LIST changes: +HYOS0.1265 SL; +IOHEXOL 180 MG/ML 10 ML VIAL. ONE; +ONDA4TAB10 SL; +TIZA4TAB8 PO; +methylPREDNISolone ACETATE 40 MG/ML VIAL. ONE; +methylPREDNISolone ACETATE 80 MG/ML VIAL. ONE
--- NOTE | 2016-12-13 15:54 | PAIN ---
DATE OF SERVICE: 12/13/2016 DIAGNOSES: 1. Cervical radiculopathy with cervical degenerative disk disease. 2. Lumbar radiculopathy with lumbar degenerative disk disease, spinal stenosis and spondylosis. HISTORY OF PRESENT ILLNESS: The patient is a 81-year-old male who returns for followup status post previous lumbar epidural steroid injection and trigger point injection. The patient reports trigger point has helped significantly about 90% improvement especially in his right shoulder and mid back. The patient reports now significant pain in the low back, however, like he has had previously with some radiation into the right leg, mostly in the posterior lateral thigh, posterior gluteus. The patient reports it is a 10 on a scale of 10, is 8 on average and a 4 currently. it comes and goes, but when it does bother him initially when leaning forward and grabs sharp and severe. The patient reports it can be radiating, aching, sharp and shooting again on and off. The patient reports no difficulty sleeping. It does not awake him from sleep. He is sleeping well at night. Reports no new motor or sensory deficits, no new bowel or bladder incontinence. PHYSICAL EXAMINATION: VITAL SIGNS: The patient's blood pressure 140/79, pulse 59, respirations 18, temperature is 97.8 degrees Fahrenheit, height is 5 feet 11 inches, weighs 204 pounds. GENERAL: The patient is awake, alert, oriented, appropriate, very pleasant demeanor. HEENT: Head shows normocephalic, atraumatic. Extraocular movements are intact and symmetrical. Oral cavity shows mucous membranes moist and pink. Dentition is intact. NECK: Shows anterior throat supple without palpable lymphadenopathy noted. Swallow reflex is symmetrical. CHEST: Shows normal on inspection. Breath sounds clear to auscultation bilaterally. HEART: Shows S1 and S2 clear. ABDOMEN: Soft, nontender, nondistended. No palpable organomegaly. No rebound or guarding demonstrated. BACK: The patient's back shows spine grossly midline. Lumbar paraspinous muscle shows some mild tenderness to palpation, but only diffusely in the lower lumbar distribution without asymmetry. The patient has full rotational motion both laterally as well as extension and flexion. EXTREMITIES: Lower extremities showed deep tendon reflexes 2+ in the patellar, 1+ tendo calcaneus tendons. Motor exam is strong with 5/5 dorsiflexion, extension, quadriceps and hamstring flexion equal. Options were discussed with the patient. The patient's old chart was reviewed. His current medication regimen updated. Current review of systems is updated today as well. We will proceed with a lumbar epidural steroid injection that is second in the series with fluoroscopic guidance. Risks were again discussed including, but not limited to bleeding, infection, possibility of epidural hematoma, subsequent neurologic compromise, dural puncture, headaches, spinal cord and/or nerve damage, side effects of steroid medication and poor results regarding pain control. The patient understands and wishes to proceed. The patient will return to clinic in approximately 2 weeks for followup, was counseled on return appointment, activity level and side effects to be aware of. DIAGNOSIS: Lumbar radiculopathy with lumbar spinal stenosis, degenerative disk disease and spondylosis. PROCEDURE: Lumbar epidural steroid injection, translaminar approach at the L5-S1 level using the C-arm fluoroscopic guidance under sterile prep and drape using local anesthetic. MEDICATIONS INJECTED: A total of 120 mg Depo-Medrol plus 10 mL preservative-free normal saline and 2 mL of Isovue for contrast. CONDITION AT DISCHARGE: Stable. The patient tolerated procedure well, had no complications. LEXI AUGUST MD DR: HENRY/hilary JOB#: [id number] / [id number]
== END | disposition home or self-care (01) ==
LOC: PNCL 09:31
PROVIDERS: ATTEND Anesthesiology
DX: M51.16 Intervertebral disc disorders with radiculopathy, lumbar region (principal); M47.26 Other spondylosis with radiculopathy, lumbar region; E78.00 Pure hypercholesterolemia, unspecified; K21.9 Gastro-esophageal reflux disease without esophagitis; M19.91 Primary osteoarthritis, unspecified site; F17.200 Nicotine dependence, unspecified, uncomplicated; Z96.653 Presence of artificial knee joint, bilateral; Z88.0 Allergy status to penicillin; Z72.89 Other problems related to lifestyle; Z88.8 Allergy status to other drugs, medicaments and biological substances
CPT/HCPCS: 62323; J1030; J1040

== ENCOUNTER → 2017-01-10 | Outpatient (CLI) | payer MEDICARE, OTHER ==
--- NOTE | 2017-01-11 01:04 | PAIN ---
DATE OF SERVICE: 01/10/2017 DIAGNOSES: 1. Lumbar radiculopathy with lumbar degenerative disk disease, lumbar spinal stenosis and spondylosis. 2. Cervical radiculopathy with cervical degenerative disk disease. 3. Myofascial pain. HISTORY OF PRESENT ILLNESS: The patient is a 81-year-old male who returns for followup status post lumbar epidural steroid injections x 2, last seen 12/13/2016. The patient did very well with near 100% improvement until about a week ago when the pain began to return. The patient reports he had increased his activity with some bowling and also does competitive ballroom dancing, which has exacerbated the pain slightly, but the bowling seems to have exacerbated it more in the low back and more on the right side with radiation to the right posterior gluteus and thigh as well as the bilateral lower extremities as he has had previously. The patient reports still tolerable, but very much more painful. The patient reports pain is a 10 on a scale of 10 at its worst, 7 at least, is 9 on average, it is a sharp shooting pain becoming more severe with activity, better with lying down or with sitting. He is sleeping through the night about 8 hours; it does not awaken him from sleep. The patient reports no new motor or sensory deficits, no new bowel or bladder incontinence or other complaints. PHYSICAL EXAMINATION: VITAL SIGNS: The patient's blood pressure is 136/82, pulse 57, respirations 18, temperature 97.6 degrees Fahrenheit, height is 5 feet 11 inches, weight is 206 pounds. GENERAL: The patient is awake, alert, oriented, appropriate, very pleasant demeanor. HEENT: Head shows normocephalic, atraumatic. Extraocular movements are intact and symmetrical. Oral cavity shows mucous membranes moist and pink. Dentition is intact. NECK: Shows anterior throat supple without palpable lymphadenopathy noted. Swallow reflex is symmetrical. CHEST: Shows normal on inspection. Breath sounds are clear to auscultation bilaterally. HEART: Shows S1 and S2 clear. No murmurs. ABDOMEN: Soft, nontender, nondistended. BACK: Shows spine grossly midline. Lumbar paraspinous muscle shows some symmetry with inspection, with palpation shows some [id number] tenderness, more on the right in the low lumbar distribution than the left, but only tender diffusely without radiation. EXTREMITIES: Lower extremities showed deep tendon reflexes 2+ in the patellar, 1+ tendo-calcaneus tendons are equal. Motor exam is strong with 5/5 dorsiflexion, extension, quadriceps and hamstring flexion. Options were discussed with the patient. The patient's old chart was reviewed as his current medication regimen updated. Current review of systems updated today as well. We will proceed with a third in the series of lumbar epidural steroid injection today with fluoroscopic guidance. Risks were again discussed including, but not limited to bleeding, infection, possibility of epidural hematoma, subsequent neurologic compromise, dural punctures, headaches, spinal cord and/or nerve damage, side effects of steroid medication and poor results regarding pain control. The patient understands and wishes to proceed. The patient will return to clinic in approximately 2 weeks for followup. He was counseled as to return appointment, activity level and side effects to be aware of. DIAGNOSIS: Lumbar radiculopathy with lumbar degenerative disk disease, spinal stenosis and spondylosis. PROCEDURE: Lumbar epidural steroid injection in translaminar approach at the L5-S1 level. Using C-arm fluoroscopic guidance under sterile prep and drape, using local anesthetic. MEDICATION INJECTED: A total of 120 mg Depo-Medrol plus 10 mL of preservative-free normal saline, 2 mL Isovue for contrast. CONDITION AT DISCHARGE: Stable. The patient tolerated procedure well, had no complications. LEXI AUGUST MD DR: HENRY/hilary JOB#: [id number] / [id number]
== END | disposition home or self-care (01) ==
LOC: PNCL 09:18
PROVIDERS: ATTEND Anesthesiology
DX: M51.16 Intervertebral disc disorders with radiculopathy, lumbar region (principal); M47.26 Other spondylosis with radiculopathy, lumbar region; M48.06 Spinal stenosis, lumbar region; E78.00 Pure hypercholesterolemia, unspecified; K21.9 Gastro-esophageal reflux disease without esophagitis; F17.200 Nicotine dependence, unspecified, uncomplicated; Z98.890 Other specified postprocedural states; Z96.653 Presence of artificial knee joint, bilateral; Z72.89 Other problems related to lifestyle; Z88.6 Allergy status to analgesic agent; Z88.0 Allergy status to penicillin; Z88.8 Allergy status to other drugs, medicaments and biological substances; Z91.048 Other nonmedicinal substance allergy status
CPT/HCPCS: 62323; J1030; J1040

== ENCOUNTER → 2017-02-26 | Outpatient (CLI) | payer MEDICARE, OTHER ==
[~2017-02-26] MED LIST changes: +CYCL10TA2 PO; -methylPREDNISolone ACETATE 40 MG/ML VIAL. ONE; -methylPREDNISolone ACETATE 80 MG/ML VIAL. ONE
--- NOTE | 2017-02-26 11:57 | PAIN ---
DATE OF SERVICE: 02/26/2017 DIAGNOSES: 1. Cervical radiculopathy with cervical degenerative disk disease. 2. Myofascial pain. 3. Lumbar radiculopathy with lumbar degenerative disk disease with spinal stenosis and spondylosis. 4. Post-dural puncture headache. HISTORY OF PRESENT ILLNESS: The patient is a 81-year-old male who returns for followup status post lumbar epidural steroid injection on 01/10/2017. The patient reports he had significant headache after that time, we had encouraged him to hydrate himself and use caffeine. The headache seemed to get slightly better, but has been persistent since the time of his last procedure. The patient reports it is positional, feels almost 100% improved with lying down with sitting up or standing up. It is a 5-8 on a scale of 10. The patient reports it is becoming more constant, more dull, has some visual disturbances with some blurry vision in the evenings, otherwise no significant deficits. The patient has remained fairly active, but the headache is becoming more and more noticeable over time. We did do a CT scan of his head with and without contrast which shows essentially normal findings. The patient reports still positional headache, much better with lying down, much worse with standing or sitting, dull, aching, becoming more constant as noted. The patient reports no new motor or sensory deficits or other complaints, sleeps well at night about 6 hours a time; his lying down, the pain is very minimal. PHYSICAL EXAMINATION: VITAL SIGNS: Today, the patient's blood pressure 132/74, pulse 53, respirations 20, temperature 98.1 degrees Fahrenheit. Height is 5 feet 11 inches, weight is 207 pounds. GENERAL: The patient is awake, alert, oriented, appropriate, very pleasant demeanor. HEENT: Head shows normocephalic, atraumatic. The patient wears eye glasses. Extraocular movements are intact and symmetrical. Pupils are equal, round, reactive to light and accommodation. Oral cavity: Mucous membranes moist and pink. Dentition is intact. NECK: Shows anterior throat supple without palpable lymphadenopathy noted. Swallow reflex is symmetrical. Neck shows full rotational motion both laterally greater than 45 degrees right and left as well as full extension, full forward flexion with no nuchal rigidity or difficulty with range of motion in a rotation. CHEST: Shows normal on inspection. Breath sounds clear to auscultation bilaterally. HEART: Shows S1 and S2 clear. No murmur auscultated. ABDOMEN: Soft, nontender, nondistended. No palpable organomegaly. No rebound or guarding demonstrated. BACK: Shows spine grossly midline. Normal appearing cervical lordotic curvature, thoracic kyphotic curvature, and lumbar lordotic curvature. Lumbar paraspinous muscle shows some moderate tenderness with palpation, but only diffusely in the lower lumbar distribution bilaterally. The patient shows full rotational motion of lumbar spine as well, both laterally as well as extension and flexion without difficulty. The patient's extremities show deep tendon reflexes in the lower extremities and 2+ in the patellar, 1+ tendo calcaneus tendons are equal. Motor exam is strong with 5/5 dorsiflexion, extension, quadriceps and hamstring flexion and symmetrical. Peripheral pulses are 2+ radial and 1+ posterior tibial. No peripheral edema is noted in the extremities. The patient shows some minor visual disturbances and reports headache with sitting. With lying down, the headache is gone in about 15-20 seconds. The patient can reproduce the headache by sitting back up. After about 1 minute, the pain returns once again. Options were discussed with the patient. The patient's old chart was reviewed. His current medication regimen updated. Current review of systems updated today as well and we will proceed with a lumbar epidural blood patch. PLAN: Risks were discussed including but not limited to bleeding, infection, possibility of epidural hematoma and subsequent neurological compromise, dural punctures and worsening of headache as well as poor results regarding pain control. The patient understands and wishes to proceed. The patient will return to clinic in approximately 2 weeks for followup. He was counseled on return appointment, activity levels and side effects to be aware of. As noted, the patient's headache was almost immediately better after the procedure. DIAGNOSES: 1. Post-dural puncture headache. 2. Lumbar radiculopathy with lumbar degenerative disk disease, spinal stenosis and spondylosis. PROCEDURE: Lumbar epidural blood patch using C-arm fluoroscopic guidance under sterile prep and drape using local anesthetic. The patient's left AC vein was sterilely prepped as well with 10 mL of sterile blood withdrawn and transferred into the epidural space under direct fluoroscopic guidance, preservative-free normal saline loss of resistance in the epidural space at the L4-L5 level with negative aspiration and good posterior tracking of contrast on fluoroscopy. Blood was injected, needle withdrawn. Sterile bandage applied. The patient tolerated procedure well, had no complications. LEXI AUGUST MD DR: HENRY/hilary JOB#: [id number] / [id number]
== END | disposition home or self-care (01) ==
LOC: PNCL 08:23
PROVIDERS: ATTEND Anesthesiology
DX: G97.1 Other reaction to spinal and lumbar puncture (principal); M51.16 Intervertebral disc disorders with radiculopathy, lumbar region; M47.26 Other spondylosis with radiculopathy, lumbar region; M50.10 Cervical disc disorder with radiculopathy, unspecified cervical region; M48.061 Spinal stenosis, lumbar region without neurogenic claudication; E78.00 Pure hypercholesterolemia, unspecified; K21.9 Gastro-esophageal reflux disease without esophagitis; M19.91 Primary osteoarthritis, unspecified site; Z96.653 Presence of artificial knee joint, bilateral; Z98.890 Other specified postprocedural states; Z72.89 Other problems related to lifestyle; Z88.6 Allergy status to analgesic agent; Z88.0 Allergy status to penicillin; Z88.8 Allergy status to other drugs, medicaments and biological substances
CPT/HCPCS: 62273

== ENCOUNTER 2017-03-08 21:57 | Emergency (ER) | payer MEDICARE, OTHER ==
[~2017-03-08] VITALS: Ht 180.3 cm; Wt 88.9 kg
[~2017-03-08 21:57] MED LIST changes: -IOHEXOL 180 MG/ML 10 ML VIAL. ONE
[2017-03-08 22:14] VITALS: BP 140/71
--- NOTE | 2017-03-08 22:39 | PHYS DOC ---
Past Medical History Past Medical History: High Cholesterol, Other Additional Past Medical Histor: enlarged prostate, irregular rhythm, ulcers Past Surgical History: Knee Replacement, Tonsillectomy, Other Additional Past Surgical Histo: bilateral knee, adnoidectomy, carpel tunnel surgery Alcohol Use: Rarely Drug Use: None Adult General Chief Complaint Chief Complaint: LOWER EXT PAIN HPI HPI Patient is a 81 year old male presents to the emergency department with complaints of left foot pain, no known injury. Patient states that he has had pain for 2 days it is intermittent he states it will be very brief at onset. He states it's gotten progressively worse. He describes the pain to be sharp and across the dorsal aspect of his foot. And is due ballroom dancing as well as bowls twice a week and is unsure as to whether he sustained an injury during any of these activities Review of Systems Review of Systems Constitutional: Denies fever or chills [] Eyes: Denies change in visual acuity, redness, or eye pain [] HENT: Denies nasal congestion or sore throat [] Respiratory: Denies cough or shortness of breath [] Cardiovascular: No additional information not addressed in HPI [] GI: Denies abdominal pain, nausea, vomiting, bloody stools or diarrhea [] : Denies dysuria or hematuria [] Musculoskeletal: Foot pain Integument: Denies rash or skin lesions [] Neurologic: Denies headache, focal weakness or sensory changes [] Endocrine: Denies polyuria or polydipsia [] All other systems were reviewed and found to be within normal limits, except as documented in this note. Allergies Allergies Allergies Coded Allergies Type Severity Reaction Last Updated Verified mold Allergy Intermediate Swelling, Pt states eyes and nose run, throat becomes scratc 01/31/16 Yes penicillin Allergy Intermediate Rash 01/31/16 Yes aluminum hydroxide Adverse Reaction Mild 03/24/13 Yes aspirin Adverse Reaction Mild 03/24/13 Yes calcium carbonate Adverse Reaction Mild 03/24/13 Yes magnesium Adverse Reaction Mild 03/24/13 Yes Physical Exam Physical Exam Constitutional: Well developed, well nourished, no acute distress, non-toxic appearance. [] Neck: Normal range of motion, no tenderness, supple, no stridor. [] Cardiovascular:Heart rate regular rhythm, no murmur [] Lungs & Thorax: Bilateral breath sounds clear to auscultation [] Abdomen: Bowel sounds normal, soft, no tenderness, no masses, no pulsatile masses. [] Skin: Warm, dry, no erythema, no rash. [] Back: No tenderness, no CVA tenderness. [] Extremities: Lower extremity left knee left ankle exam unremarkable. The calf is supple without swelling. Negative Homans. He has diffuse tenderness to palpate across metatarsals of the left foot. Dorsalis pedis pulse is trace. The foot is warm. Neurovascular intact distally. Neurologic: Alert and oriented X 3, normal motor function, normal sensory function, no focal deficits noted. [] Psychologic: Affect normal, judgement normal, mood normal. [] Current Patient Data Vital Signs Vital Signs Date Time Temp Pulse Resp B/P (MAP) Pulse Ox O2 Delivery O2 Flow Rate FiO2 03/08/17 22:14 97.4 60 18 96 Room Air 97.4 EKG EKG [] Radiology/Procedures Radiology/Procedures Left foot x-ray reviewed, no acute bony abnormalities[] Course & Med Decision Making Course & Med Decision Making Upon discharge, patient recalled that he had used his foot to stomp some [place] into the firm ground. He states he was wearing tennis shoes at the time that he did this. He feels this may be the cause of his discomfort. Patient was advised to utilize supportive shoes, pain medications as prescribed. Moist heat. Follow-up primary care 3-5 days, sooner promblems rise. Pertinent Labs and Imaging studies reviewed. (See chart for details) [] Dragon Disclaimer Dragon Disclaimer This electronic medical record was generated, in whole or in part, using a voice recognition dictation system. Departure Departure Impression: Primary Impression: Strain of foot, left Disposition: 01 HOME, SELF-CARE Condition: STABLE Referrals: HENOK DENNEY MD (PCP) Patient Instructions: Foot Sprain Scripts Tramadol Hcl (TRAMADOL HCL) 50 Mg Tablet 50 MG PO Q8H Y for PAIN, #12 TAB 0 Refills Prov: TREVON HENDRICKSON APRN 03/08/17 Problem Qualifiers Primary Impression: Strain of foot, left Encounter type: initial encounter Qualified Codes: S96.912A - Strain of unspecified muscle and tendon at ankle and foot level, left foot, initial encounter TREVON HENDRICKSON APRN Mar 08, 2017 22:39
[2017-03-08] MEDS ORDERED: TRAM50TA PO (22:54)
--- NOTE | 2017-03-09 08:08 | RAD ---
EXAM: Left foot 3 views. HISTORY: Left foot pain referring to the 3rd-4th metatarsals. COMPARISON: None. FINDINGS: There is osteoarthritis associated with the articulation between the proximal diaphyses of the 3rd and 4th metatarsals. No fractures are identified. 1st metatarsophalangeal osteoarthritis is moderate to severe. Alignment is maintained. Osteopenia is at least mild. IMPRESSION: 1. 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 Correlate for this is the site of pain. 2. 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
== END 2017-03-08 23:01 | disposition home or self-care (01) ==
LOC: ER 21:57
DX: S96.912A Strain of unspecified muscle and tendon at ankle and foot level, left foot, initial encounter (principal); E78.00 Pure hypercholesterolemia, unspecified; Z88.0 Allergy status to penicillin; Z91.048 Other nonmedicinal substance allergy status; Z88.8 Allergy status to other drugs, medicaments and biological substances; Z88.6 Allergy status to analgesic agent; Z96.653 Presence of artificial knee joint, bilateral; X58.XXXA Exposure to other specified factors, initial encounter; Y93.89 Activity, other specified; Y92.89 Other specified places as the place of occurrence of the external cause; Y99.8 Other external cause status
CPT/HCPCS: 73630; 99284

== ENCOUNTER → 2017-03-23 | Outpatient (CLI) | payer MEDICARE, OTHER ==
[2017-03-08 22:14] VITALS: BP 140/71
[~2017-03-23] MED LIST changes: +IOHEXOL 180 MG/ML 10 ML VIAL. ONE; +TRAM50TA PO; +methylPREDNISolone ACETATE 40 MG/ML VIAL. ONE; +methylPREDNISolone ACETATE 80 MG/ML VIAL. ONE
--- NOTE | 2017-03-23 11:30 | PAIN ---
DATE OF SERVICE: 03/23/2017 PROGRESS NOTE FOR PAIN CLINIC DIAGNOSES: 1. Lumbar radiculopathy with lumbar degenerative disk disease and lumbar spinal stenosis. 2. Cervical radiculopathy with cervical degenerative disk disease. 3. Myofascial pain. HISTORY OF PRESENT ILLNESS: The patient is a 81-year-old male who returns for followup status post blood patch after his most recent epidural steroid injection on 01/10/2017, which he did well. The patient reports still occasional headache but not every day and is much better than it was and got significantly better right after the blood patch procedure. The patient reports is still staying very active, is increasing his activity and dancing as well as bowling activities which he does routinely and extensively to some degree. The patient reports the pain is returning in his low back and more in the right lower extremity than the left at this time. The patient reports it is increasing with activity, standing, walking, changing positions and he has been wearing a back brace when he knows he is going to be walking further distances or doing more dance competitions and bowling. The patient reports the pain is 8 on a scale 10 at its worst, 6 on average, 2 at least and is 2 today. The patient reports aching, dull somewhat more cramping and some degree in the low back and right leg is more radiating pain, becoming more noticeable. The patient reports no motor or sensory deficits, no new bowel or bladder incontinence; worse with walking, standing, changing positions and better with sitting down or lying. Reports it does not wake him from sleep at night. PHYSICAL EXAMINATION: VITAL SIGNS: The patient's blood pressure is 132/75, pulse 57, respirations 16, temperature 97.7 degrees Fahrenheit, height is 5 feet 11 inches and weight 204 pounds. GENERAL: The patient is awake, alert, oriented, appropriate and very pleasant demeanor. HEENT: Head shows normocephalic and atraumatic. Extraocular muscles are intact and symmetrical. Oral cavity: Mucous membranes moist and pink. Dentition is intact. NECK: Shows anterior throat supple without palpable lymphadenopathy noted. Swallow reflex is symmetrical. CHEST: Shows normal on inspection. Breath sounds clear to auscultation bilaterally. HEART: Shows S1 and S2 clear. ABDOMEN: Soft, nontender and nondistended. No palpable organomegaly is noted. No rebound or guarding demonstrated. BACK: Shows spine grossly in the midline with a normal appearing thoracic and lumbar lordotic curvatures. Lumbar paraspinous musculature shows symmetrical inspection with palpation shows some moderate tenderness but only diffusely with palpation and the patient has full rotational motion of the lumbar spine, both laterally as well as extension and flexion without difficulty. EXTREMITIES: The patient's lower extremities show deep tendon reflexes at 2+ in the patellar, 1+ tendo-calcaneus tendons, are equal. Motor exam is strong with 5/5 dorsiflexion, extension, quadriceps and hamstring flexion and are equal and symmetrical as well. Peripheral pulses are 1+ posterior tibia. No peripheral edema is noted. Options were discussed with the patient. The patient's old chart was reviewed as well as his current medication regimen updated. Current review of systems updated today as well. We will proceed with a first in this series a lumbar epidural steroid injection with fluoroscopic guidance. Risks were again discussed including but not limited to bleeding, infection, possibility of epidural hematoma, subsequent neurological compromise, dural puncture, headaches, spinal cord and/or nerve damage, side effects of steroid medication and poor results regarding pain control. The patient understands and wished to proceed. The patient to return to clinic in approximately 2 weeks for followup, was counseled on return appointment, activity level and side effects to be aware of. DIAGNOSIS: Lumbar radiculopathy with lumbar spinal stenosis and degenerative disk disease and lumbar spondylosis. PROCEDURE: Lumbar epidural steroid injection, translaminar approach, L5-S1 level using C-arm fluoroscopic guidance under sterile prep and drape using local anesthetic. MEDICATION INJECTED: A total of 120 mg Depo-Medrol plus 10 mL of preservative-free normal saline and 2 mL of Isovue for contrast. CONDITION AT DISCHARGE: Stable. The patient tolerated the procedure well, had no complications. LEXI AUGUST MD DR: HENRY/hilary JOB#: [id number] / [id number]
== END | disposition home or self-care (01) ==
LOC: PNCL 08:14
PROVIDERS: ATTEND Anesthesiology
DX: M51.16 Intervertebral disc disorders with radiculopathy, lumbar region (principal); M48.061 Spinal stenosis, lumbar region without neurogenic claudication; M79.1 Myalgia; M50.10 Cervical disc disorder with radiculopathy, unspecified cervical region; Z88.6 Allergy status to analgesic agent; Z88.8 Allergy status to other drugs, medicaments and biological substances; Z88.0 Allergy status to penicillin; Z91.048 Other nonmedicinal substance allergy status; Z96.653 Presence of artificial knee joint, bilateral; E78.00 Pure hypercholesterolemia, unspecified; K21.9 Gastro-esophageal reflux disease without esophagitis; Z98.890 Other specified postprocedural states; F17.210 Nicotine dependence, cigarettes, uncomplicated; Z85.828 Personal history of other malignant neoplasm of skin; M19.90 Unspecified osteoarthritis, unspecified site; Z72.9 Problem related to lifestyle, unspecified
CPT/HCPCS: 62323; J1030; J1040

== ENCOUNTER → 2017-06-04 | Outpatient (CLI) | payer MEDICARE, OTHER ==
[~2017-06-04] MED LIST changes: -ACET500T68 PO; -CELE200C PO; -CHOL2000 PO; -CYCL10TA2 PO; -CYCL5TAB PO; -FINA5TAB PO; -FINA5TAB4 PO; -HYDR-2758 PO; -HYOS0.1265 SL; +IOHEXOL 180 MG/ML 10 ML VIAL.; -IOHEXOL 180 MG/ML 10 ML VIAL. ONE; -MELO7.5T29 PO; -MULT-658 PO; -MULT-659 PO; -OMEP20CA9 PO; -OMEP20TA8 PO; -ONDA4TAB10 SL; -ONDA4TAB7 PO; -SIMV10TA3 PO; -SIMV80TA PO; -TIZA4TAB8 PO; -TRAM50TA PO; -[UNRECOGNIZED DRUG - CODE] PO; +methylPREDNISolone ACETATE 40 MG/ML VIAL.; -methylPREDNISolone ACETATE 40 MG/ML VIAL. ONE; +methylPREDNISolone ACETATE 80 MG/ML VIAL.; -methylPREDNISolone ACETATE 80 MG/ML VIAL. ONE
== END | disposition home or self-care (01) ==
LOC: PNCL 08:13
DX: M51.16 Intervertebral disc disorders with radiculopathy, lumbar region (principal); M47.26 Other spondylosis with radiculopathy, lumbar region; E78.00 Pure hypercholesterolemia, unspecified; K21.9 Gastro-esophageal reflux disease without esophagitis; M19.90 Unspecified osteoarthritis, unspecified site; Z98.890 Other specified postprocedural states; Z96.653 Presence of artificial knee joint, bilateral; Z87.891 Personal history of nicotine dependence; Z72.89 Other problems related to lifestyle; Z88.6 Allergy status to analgesic agent; Z88.0 Allergy status to penicillin; Z88.8 Allergy status to other drugs, medicaments and biological substances
CPT/HCPCS: 62323; J1030; J1040; Q9965

== ENCOUNTER → 2017-07-02 | Outpatient (CLI) | payer MEDICARE, OTHER | END | disposition home or self-care (01) | LOC: PNCL 07:51 | DX: M51.16 Intervertebral disc disorders with radiculopathy, lumbar region (principal); M47.896 Other spondylosis, lumbar region; M48.061 Spinal stenosis, lumbar region without neurogenic claudication; M50.10 Cervical disc disorder with radiculopathy, unspecified cervical region; Z88.1 Allergy status to other antibiotic agents; Z88.0 Allergy status to penicillin; Z88.8 Allergy status to other drugs, medicaments and biological substances; Z88.6 Allergy status to analgesic agent; Z77.120 Contact with and (suspected) exposure to mold (toxic); E78.00 Pure hypercholesterolemia, unspecified; K21.9 Gastro-esophageal reflux disease without esophagitis; M19.90 Unspecified osteoarthritis, unspecified site; F10.99 Alcohol use, unspecified with unspecified alcohol-induced disorder; F17.210 Nicotine dependence, cigarettes, uncomplicated | CPT/HCPCS: 62323; J1030; J1040; Q9965 ==

== ENCOUNTER → 2017-08-17 | Outpatient (CLI) | payer MEDICARE, OTHER | END | disposition home or self-care (01) | LOC: NM 09:27 | DX: M25.561 Pain in right knee (principal); M25.562 Pain in left knee; Z96.653 Presence of artificial knee joint, bilateral | CPT/HCPCS: 78315; 96374; A9503 ==

== ENCOUNTER → 2017-10-03 | Outpatient (CLI) | payer MEDICARE, OTHER ==
[~2017-10-03] MED LIST changes: +LIDOCAINE 1% PF 2 ML VIAL.
== END ==
LOC: PNCL 08:49
DX: M51.16 Intervertebral disc disorders with radiculopathy, lumbar region (principal); M48.061 Spinal stenosis, lumbar region without neurogenic claudication; M47.896 Other spondylosis, lumbar region; E78.00 Pure hypercholesterolemia, unspecified; K21.9 Gastro-esophageal reflux disease without esophagitis; M19.90 Unspecified osteoarthritis, unspecified site; Z96.653 Presence of artificial knee joint, bilateral; Z98.890 Other specified postprocedural states; Z85.828 Personal history of other malignant neoplasm of skin
CPT/HCPCS: 62323; J1030; J1040; Q9965

== ENCOUNTER → 2017-12-18 | Outpatient (CLI) | payer MEDICARE, OTHER ==
[~2017-12-18] MED LIST changes: +ACET500T68 PO; +CELE200C PO; +CHOL2000 PO; +CYCL10TA2 PO; +CYCL5TAB PO; +DICL100G18 TP; +FINA5TAB PO; +FINA5TAB4 PO; +HYDR-2758 PO; +HYOS0.1265 SL; -IOHEXOL 180 MG/ML 10 ML VIAL.; +IOHEXOL 180 MG/ML 10 ML VIAL. ONE; -LIDOCAINE 1% PF 2 ML VIAL.; +LIDOCAINE 2% PF 2ML VIAL. ONE; +MELO7.5T29 PO; +MULT-658 PO; +MULT-659 PO; +OMEP20CA9 PO; +OMEP20TA8 PO; +ONDA4TAB10 SL; +ONDA4TAB7 PO; +SIMV10TA3 PO; +SIMV80TA PO; +TIZA4TAB8 PO; +TRAM50TA PO; +[UNRECOGNIZED DRUG - CODE] PO; +[UNRECOGNIZED DRUG - OTHER]; -methylPREDNISolone ACETATE 40 MG/ML VIAL.; +methylPREDNISolone ACETATE 40 MG/ML VIAL. ONE; -methylPREDNISolone ACETATE 80 MG/ML VIAL.; +methylPREDNISolone ACETATE 80 MG/ML VIAL. ONE
--- NOTE | 2017-12-18 21:41 | PAIN ---
DATE OF SERVICE: 12/18/2017 PROGRESS NOTE FOR THE PAIN CLINIC DIAGNOSES: 1. Cervical radiculopathy with cervical degenerative disk disease. 2. Lumbar radiculopathy with lumbar degenerative disk disease, lumbar spinal stenosis and lumbar spondylosis. 3. Myofascial pain. HISTORY OF PRESENT ILLNESS: The patient is an 82-year-old male who returns for followup status post lumbar epidural steroid injection x 1. The patient reports about 100% improvement. This was on 10/03/2017. About 2 weeks ago, the pain began to return in the low back and bilateral lower extremities, left equal to right as well as in the low back. The patient reports it is worse with activity, standing, walking, and changing positions. Initially, he was able to increase his activity with greater ease and comfort, dancing and bowling. He in both of these with greater ease and comfort. The patient reports it is now becoming more noticeable, but still it does not awaken him from sleep at night, feels better sitting or lying down; worse with standing, walking, changing positions and exercising. He is still exercising 3 days a week on an elliptical machine and the other alternate days a week doing dancing routines and aerobic exercise. The patient reports his pain is 10 on a scale 10 at its worst, 7 on an average, 4 at its least and is a 4 today. The patient reports it is aching, dull, sometimes sharp, but mostly dull in the low back. The patient reports no new motor or sensory deficits, no new bowel or bladder incontinence or other complaints. PHYSICAL EXAMINATION: VITAL SIGNS: The patient's blood pressure is 140/84, pulse 59, respirations are 18, temperature 97.7 degrees Fahrenheit, height 5 feet 11 inches, and weight is 204 pounds. GENERAL: The patient is awake, alert, oriented, appropriate, very pleasant demeanor. HEENT: Head shows normocephalic, atraumatic. Extraocular movements are intact, symmetrical. Oral cavity, mucous membranes are moist and pink. Dentition is intact. NECK: Shows anterior throat supple without palpable lymphadenopathy noted. Swallow reflex is symmetrical. CHEST: Shows normal with inspection. Breath sounds are clear to auscultation bilaterally. HEART: Shows S1, S2 clear. No murmurs auscultated. ABDOMEN: Soft, nontender, nondistended. No palpable organomegaly. No rebound or guarding demonstrated. BACK: Shows spine grossly in the midline. Normal-appearing thoracic kyphosis. He has minor flattening of lordotic curvature. Lumbar paraspinal spine shows symmetrical on inspection. Palpation shows some mild tenderness, but only diffusely with palpation without radiation. The patient has good rotational motion of lumbar spine, both laterally as well as extension and flexion without difficulty or pain reported. LOWER EXTREMITIES: Show deep tendon reflexes 2+ in the patella and 1+ in the tendo calcaneus tendons. Motor exam is strong with 5/5 dorsiflexion and extension, quadriceps and hamstring flexion are equal. Peripheral pulses are 1+ posterior tibia. No peripheral edema is noted bilaterally. Options were discussed with the patient. The patient's old chart was reviewed as his current medication regimen updated. Current review of systems updated today as well. We will proceed with a second in the series of lumbar epidural steroid injection today with fluoroscopic guidance. Risks were again discussed including, but not limited to bleeding, infection, possibility of epidural hematoma, subsequent neurologic compromise, dural puncture, headaches, spinal cord and/or nerve damage, side effects of steroid medication and poor results regarding pain control. The patient understands and wished to proceed. The patient to return to clinic in approximately 2 weeks for followup., was counseled on return appointment, activity level and side effects to be aware of. DIAGNOSIS: Lumbar radiculopathy with lumbar degenerative disk disease, lumbar spinal stenosis and lumbar spondylosis. PROCEDURE: Lumbar epidural steroid injection, translaminar approach at L5-S1 level using C-arm under fluoroscopic guidance under sterile prep and drape using local anesthetic. MEDICATION INJECTED: A total of 120 mg Depo-Medrol plus 10 mL of preservative-free normal saline and 2 mL Isovue for contrast. CONDITION AT DISCHARGE: Stable. The patient tolerated the procedure well, had no complications. LEXI AUGUST MD DR: HENRY/hilary JOB#: [id number] / [id number]
== END | disposition home or self-care (01) ==
LOC: PNCL 08:06
PROVIDERS: ATTEND Anesthesiology
DX: M51.16 Intervertebral disc disorders with radiculopathy, lumbar region (principal); M48.061 Spinal stenosis, lumbar region without neurogenic claudication; M47.26 Other spondylosis with radiculopathy, lumbar region; M50.10 Cervical disc disorder with radiculopathy, unspecified cervical region; M79.1 Myalgia; Z88.6 Allergy status to analgesic agent; Z88.0 Allergy status to penicillin; Z88.8 Allergy status to other drugs, medicaments and biological substances
CPT/HCPCS: 62323; J1030; J1040; J2001; Q9965

== ENCOUNTER → 2018-02-12 | Outpatient (CLI) | payer MEDICARE, OTHER ==
[~2018-02-12] MED LIST changes: +LIDOCAINE 1% PF 2 ML VIAL. ONE; -LIDOCAINE 2% PF 2ML VIAL. ONE
--- NOTE | 2018-02-12 21:41 | PAIN ---
DATE OF SERVICE: 02/12/2018 PROGRESS NOTE FOR PAIN CLINIC DIAGNOSES: 1. Cervical radiculopathy with cervical degenerative disk disease. 2. Lumbar radiculopathy with lumbar degenerative disk disease, lumbar spinal stenosis and lumbar spondylosis. 3. Myofascial pain. HISTORY OF PRESENT ILLNESS: The patient is an 82-year-old male who returns for followup status post lumbar epidural steroid injection x 2, most recently on 12/18/2017. The patient reports he did very well with this with 100% improvement until about 3 days ago. The pain returned fairly abruptly, but without any specific injury or action that he is aware of. The patient has been very active as he always is. He has been doing his normal daily routines to competitive dancing as well as bowling with pain across the low back that just occurred a few days ago for no specific reason. The patient reports it is aching, dull, shooting, tingling, burning, cramping, radiating into the lower extremities. The patient reports it is an 8 on a scale of 10 at its worst, 7 on average, 3 at its least and is a 7 today. The patient reports no new motor or sensory deficits, no new bowel or bladder incontinence or other complaints, worse with increased activity, standing and walking, better with sitting or lying down. Initially, he was doing very well with increased walking and ability to do household activities and recreational activities, again competitive dancing without difficulty until the last 3 days. No new motor or sensory deficits, no new bowel or bladder incontinence or other complaints. PHYSICAL EXAMINATION: VITAL SIGNS: The patient's blood pressure is 137/81, pulse is 77, respirations are 16, temperature is 98.2 degrees Fahrenheit, height is 5 feet 11 inches, weight is 202 pounds. GENERAL: The patient is awake, alert, oriented, appropriate, has very pleasant demeanor. HEENT: Head shows normocephalic, atraumatic. The patient wears eyeglasses. Extraocular movements are intact and symmetrical. Oral cavity: Mucous membranes are moist and pink. Dentition is intact. NECK: Shows anterior throat supple without palpable lymphadenopathy noted. Swallow reflex is symmetrical. CHEST: Shows normal on inspection. Breath sounds clear to auscultation bilaterally. HEART: Shows S1, S2 clear. No murmurs auscultated. ABDOMEN: Soft, nontender, nondistended. No palpable organomegaly is noted. No rebound or guarding demonstrated. BACK: Shows spine grossly in the midline. Normal appearing thoracic kyphosis. Some minor flattening of lumbar lordotic curvature. Lumbar paraspinous muscles shows symmetrical on inspection. With palpation, shows some moderate tenderness diffusely throughout the upper, middle and lower distribution of the paraspinous muscles, mostly in the lower distribution, but without asymmetry, without atrophy or hypertrophy, and no trigger points. No difficulty with rotational motion, both laterally as well as extension and flexion without difficulty. No tenderness over the sacrum or sacroiliac regions. EXTREMITIES: Lower extremities show deep tendon reflexes at 2+ in the patellar, 1+ tendo calcaneus tendons. Motor exam is strong with 5/5 dorsiflexion, extension, quadriceps and hamstring flexion and equal. Peripheral pulses are 1+ posterior tibial pulses and no peripheral edema is noted bilaterally. Options were discussed with the patient. The patient's old chart was reviewed as his current medication regimen updated. His current review of systems was updated. We will proceed with a third in the series of lumbar epidural steroid injection today with fluoroscopic guidance. Risks were again discussed including, but not limited to bleeding, infection, possibility of epidural hematoma, subsequent neurologic compromise, dural puncture, headaches, spinal cord and/or nerve damage, side effects of steroid medication and poor results regarding pain control. The patient understands and wished to proceed. The patient will return to the clinic in approximately 2 weeks for followup, was counseled on return appointment, activity level and side effects to be aware of. DIAGNOSIS: Lumbar radiculopathy with lumbar degenerative disk disease, lumbar spinal stenosis and lumbar spondylosis. PROCEDURE: Lumbar epidural steroid injection, translaminar approach at L5-S1 level using C-arm fluoroscopic guidance under sterile prep and drape using local anesthetic. MEDICATION INJECTED: A total of 120 mg Depo-Medrol plus 10 mL of preservative-free normal saline and 2 mL of Isovue for contrast. CONDITION AT DISCHARGE: Stable. The patient tolerated the procedure well, had no complications. LEXI AUGUST MD DR: HENRY/hilary JOB#: [id number] / [id number]
== END | disposition home or self-care (01) ==
LOC: PNCL 07:49
PROVIDERS: ATTEND Anesthesiology
DX: M51.16 Intervertebral disc disorders with radiculopathy, lumbar region (principal); M48.061 Spinal stenosis, lumbar region without neurogenic claudication; M47.26 Other spondylosis with radiculopathy, lumbar region; M79.18 Myalgia, other site; M50.10 Cervical disc disorder with radiculopathy, unspecified cervical region; Z88.6 Allergy status to analgesic agent; Z88.0 Allergy status to penicillin; Z88.8 Allergy status to other drugs, medicaments and biological substances
CPT/HCPCS: 62323; J1030; J1040; Q9965

== ENCOUNTER → 2018-04-10 | Outpatient (CLI) | payer MEDICARE, OTHER ==
[~2018-04-10] MED LIST changes: -HYDR-2758 PO; +HYDR-2761 PO; -LIDOCAINE 1% PF 2 ML VIAL. ONE
--- NOTE | 2018-04-10 11:31 | PAIN ---
DATE OF SERVICE: 04/10/2018 DIAGNOSES: 1. Cervical radiculopathy with cervical degenerative disk disease. 2. Lumbar radiculopathy with lumbar degenerative disk disease, lumbar spinal stenosis and spondylosis. 3. Myofascial pain. HISTORY OF PRESENT ILLNESS: The patient is an 82-year-old male who returns for followup status post lumbar epidural steroid injection #3 on 02/12/2018. The patient did very well with 100% improvement until about 5 days ago. The patient reports the pain began to return in his low back and bilateral lower extremities, somewhat more in the left than the right, but present bilaterally. The patient reports it is worse with walking, standing, changing positions. It is better with sitting or lying down, getting up and down, changing from sitting to standing positions, etc. 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 The patient reports no new motor or sensory deficits, no new bowel or bladder incontinence or other complaints. Pain in the low back itself described as aching and dull, radiating at times into the lower posterior gluteus, posterior thigh, posterior calves bilaterally. The patient rates it is a 9 on a scale of 10 at its worst, 7 on average, 4 at its least, is a 4 today. The patient reports it awakens him from sleep occasionally, but not most nights. The patient reports initially, he was doing very well, increased his distance walking, doing activities at home and work as well as dancing competitions with much greater ease and comfort. The patient reports no new motor or sensory deficits, no new bowel or bladder incontinence or other complaints. PHYSICAL EXAMINATION: VITAL SIGNS: The patient's blood pressure is 130/84, pulse 59, respirations 16, temperature is 97.9 degrees Fahrenheit. Height is 5 feet 11 inches, weight is 197 pounds. GENERAL: The patient is awake, alert, oriented, appropriate, very pleasant demeanor. HEENT: Shows normocephalic, atraumatic. Extraocular movements are intact and symmetrical. Oral cavity: Mucous membranes are moist and pink. Dentition is intact. NECK: Shows anterior throat supple without palpable lymphadenopathy noted. Swallow reflex is symmetrical. CHEST: Shows normal on inspection. Breath sounds clear to auscultation bilaterally. HEART: Shows S1, S2 clear. No murmurs auscultated. ABDOMEN: Soft, nontender, nondistended. No palpable organomegaly is noted. No rebound or guarding demonstrated. BACK: Shows spine grossly in the midline. Normal appearing thoracic kyphosis and lumbar lordotic curvature. Lumbar paraspinous musculature shows symmetrical on inspection, on palpation shows some moderate tenderness but only diffusely without significant radiation. EXTREMITIES: The patient's lower extremities show deep tendon reflexes 2+ in the patellar, 1+ tendo calcaneus tendons. Motor exam is strong with 5/5 dorsiflexion, extension, quadriceps and hamstring flexion and symmetrical bilaterally as well. Peripheral pulses are 1+ posterior tibia. No peripheral edema is noted bilaterally. Options were discussed with the patient. The patient's old chart was reviewed as his current medication regimen and updated. Current review of systems is updated today as well. We will proceed with a first in the series a lumbar epidural steroid injection today with fluoroscopic guidance. Risks were again discussed including, but not limited to bleeding, infection, possibility of epidural hematoma, subsequent neurological compromise, dural puncture, headaches, spinal cord and/or nerve damage, side effects of steroid medication and poor results regarding pain control. The patient understands and wished to proceed. The patient will return to clinic in approximately 2 weeks for followup, was counseled as to return appointment, activity level and side effects to be aware of. DIAGNOSIS: Lumbar radiculopathy with lumbar degenerative disk disease, lumbar spinal stenosis and lumbar spondylosis. PROCEDURE: Lumbar epidural steroid injection, translaminar approach at L5-S1 level using C-arm fluoroscopic guidance under sterile prep and drape using local anesthetic. MEDICATION INJECTED: A total of 120 mg Depo-Medrol plus 10 mL of preservative-free normal saline and 2 mL of Isovue for contrast. CONDITION AT DISCHARGE: Stable. The patient tolerated procedure well, had no complications. LEXI AUGUST MD DR: HENRY/hilary JOB#: [id number] / [id number]
== END ==
LOC: PNCL 07:46
PROVIDERS: ATTEND Anesthesiology
DX: M51.16 Intervertebral disc disorders with radiculopathy, lumbar region (principal); M48.061 Spinal stenosis, lumbar region without neurogenic claudication; M47.26 Other spondylosis with radiculopathy, lumbar region; M50.10 Cervical disc disorder with radiculopathy, unspecified cervical region; M79.18 Myalgia, other site
CPT/HCPCS: 62323; J1030; J1040; Q9965

== ENCOUNTER → 2018-06-05 | Outpatient (CLI) | payer MEDICARE, OTHER ==
--- NOTE | 2018-06-05 11:43 | PAIN ---
DATE OF SERVICE: 06/05/2018 DIAGNOSES: Lumbar radiculopathy with lumbar degenerative disk disease and lumbar spinal stenosis. HISTORY OF PRESENT ILLNESS: The patient is an 82-year-old male who returns for a followup status post lumbar epidural steroid injection x 1 on 04/10/2018. The patient did very well with this with about 90% improvement. He fell on some ice. He slipped about a week and a half ago. Reports the pain was doing much better until that time, but after that the pain began to return in the low back, bilateral lower extremities, mostly in the posterior gluteus, posterior thighs. The patient reports it is a 7 on a scale of 10 at its worst now, 6 on average, 2 at its least and is a 5 today. The patient reports it is a dull, aching, shooting in his posterior gluteus, posterior thighs bilaterally with activity, but not with sitting or lying down, much better with that. He is sleeping well at night, does not awaken him from sleep. The patient reports otherwise doing very well with increased his activity with walking, household activities. 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 The patient reports no new motor or sensory deficits, no new bowel or bladder incontinence or other complaints. PHYSICAL EXAMINATION: VITAL SIGNS: The patient's blood pressure is 126/78, pulse is 50, respirations are 18, temperature is 98.2 degrees Fahrenheit, height is 5 feet 11 inches, weight is 192 pounds. GENERAL: The patient is awake, alert, oriented, appropriate, very pleasant demeanor. HEENT: Shows normocephalic, atraumatic. Extraocular movements are intact and symmetrical. Oral cavity shows mucous membranes moist and pink. Dentition is intact. NECK: Shows anterior throat supple without palpable lymphadenopathy noted. Swallow reflex symmetrical. CHEST: Shows normal on inspection. Breath sounds are clear to auscultation bilaterally. HEART: Shows S1, S2 clear. No murmurs auscultated. ABDOMEN: Soft, nontender, nondistended. No palpable organomegaly is noted. No rebound or guarding demonstrated. MUSCULOSKELETAL: Back shows spine grossly in the midline, normal appearing thoracic kyphosis and lumbar lordotic curvature. Lumbar paraspinous muscle shows symmetrical on inspection; with palpation shows some moderate tenderness, but only diffusely in the low lumbar distribution without radiation. No tenderness over the sacrum or sacroiliac regions. The patient has good rotational motion both laterally greater than 10 degrees right and left as well as extension greater than 10 degrees, forward flexion 45 degrees without significant pain reported. The patient's lower extremities show deep tendon reflexes 2+ in the patellar and 1+ tendo-calcaneus tendons, are equal. Motor exam is strong with 5/5 dorsiflexion, extension, quadriceps and hamstring flexion and symmetrical. Peripheral pulses are 1+ posterior tibia. No peripheral edema is noted bilaterally. PLAN: Options were discussed with the patient. The patient's old chart was reviewed as his current medication regimen and updated. Current review of systems updated today as well. We will proceed with a lumbar epidural steroid injection today with fluoroscopic guidance. Risks were again discussed including, but not limited to bleeding, infection, possibility of epidural hematoma, subsequent neurologic compromise, dural puncture, headaches, spinal cord and/or nerve damage, side effects of steroid medication and poor results regarding pain control. The patient understands and wished to proceed. The patient will return to the clinic in approximately 2 weeks for a followup, was counseled on return appointment, activity level and side effects to be aware of. DIAGNOSES: Lumbar radiculopathy with lumbar degenerative disk disease, spinal stenosis and lumbar spondylosis. PROCEDURE: Lumbar epidural steroid injection, translaminar approach at the L5-S1 level using C-arm fluoroscopic guidance under sterile prep and drape using local anesthetic. MEDICATION INJECTED: A total of 120 mg Depo-Medrol plus 10 mL of preservative-free normal saline and 2 mL of Isovue for contrast. CONDITION AT DISCHARGE: Stable. The patient tolerated the procedure well, had no complications. LEXI AUGUST MD DR: HENRY/hilary JOB#: [id number] / [id number]
== END | disposition home or self-care (01) ==
LOC: PNCL 07:42
PROVIDERS: ATTEND Anesthesiology
DX: M51.16 Intervertebral disc disorders with radiculopathy, lumbar region (principal); M48.061 Spinal stenosis, lumbar region without neurogenic claudication; M47.26 Other spondylosis with radiculopathy, lumbar region; Z88.0 Allergy status to penicillin; Z88.6 Allergy status to analgesic agent; Z88.8 Allergy status to other drugs, medicaments and biological substances
CPT/HCPCS: 62323; J1030; J1040; Q9965

== ENCOUNTER → 2018-07-31 | Outpatient (CLI) | payer MEDICARE, OTHER ==
[~2018-07-31] MED LIST changes: +OMEP20CA10 PO; -OMEP20CA9 PO
--- NOTE | 2018-07-31 21:48 | PAIN ---
DATE OF SERVICE: 07/31/2018 PROGRESS NOTE FOR PAIN CLINIC DIAGNOSES: 1. Cervical radiculopathy with cervical degenerative disk disease. 2. Lumbar radiculopathy with lumbar degenerative disk disease with lumbar spinal stenosis and lumbar spondylosis. HISTORY OF PRESENT ILLNESS: The patient is an 82-year-old male who returns for followup status post lumbar epidural steroid injection x 2, last seen on 06/05/2018. The patient reports he did 100% better for about 2-1/2 months. 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 The patient reports before that, he was doing great, increased distance walking, doing activities, dancing, doing household activities well, sleeping better at night, traveling without pain. The patient reports his pain as a 10 on a scale of 10 at its worst, 8 on average, 6 at its least over the last week and is a 6 today. The patient reports it is aching and dull, across the low back and in the bilateral lower extremities, also having some knee discomfort as well and is planning to see his orthopedic surgeon regarding this later this week. The patient reports no new motor or sensory deficits, no new bowel or bladder incontinence or other complaints. PHYSICAL EXAMINATION: VITAL SIGNS: The patient's blood pressure is 119/78, pulse 53, respirations 18, temperature 97.5 degrees Fahrenheit. Height is 5 feet 11 inches, weighs 190 pounds. GENERAL: The patient is awake, alert, oriented, appropriate, very pleasant demeanor. HEENT: Head shows normocephalic, atraumatic. Extraocular movements are intact and symmetrical. Oral cavity: Mucous membranes moist and pink. Dentition is intact. NECK: Shows anterior throat supple without palpable lymphadenopathy noted. Swallow reflex symmetrical. CHEST: Shows normal on inspection. Breath sounds clear to auscultation bilaterally. HEART: Shows S1, S2 clear. No murmurs auscultated. ABDOMEN: Soft, nontender, nondistended. No palpable organomegaly is noted. No rebound or guarding demonstrated. BACK: Shows spine grossly in the midline. Normal appearing thoracic kyphosis and minor flattening of lumbar lordotic curvature. Lumbar paraspinous muscle shows symmetrical on inspection. On palpation shows some moderate tenderness diffusely in the low lumbar distribution, but only diffusely without radiation. The patient has good rotational motion of lumbar spine both laterally as well as extension and flexion without difficulty. EXTREMITIES: The patient's lower extremities show deep tendon reflexes 2+ in patellar and tendo calcaneus tendons are 1+ bilaterally. Motor exam is strong with 5/5 dorsiflexion, extension, quadriceps and hamstring flexion. Peripheral pulses are 1+ posterior tibia. No peripheral edema is noted. Options were discussed with the patient. The patient's old chart was reviewed as his current medication regimen updated. Current review of systems updated today as well. We will proceed with a third in the series of lumbar epidural steroid injection with fluoroscopic guidance. Risks were again discussed including, but not limited to, bleeding, infection, possibility of epidural hematoma, subsequent neurologic compromise, dural puncture, headaches, spinal cord and/or nerve damage, side effects of steroid medication and poor results regarding pain control. The patient understands and wished to proceed. The patient to return to the clinic in approximately 2 weeks for followup, was counseled as to return appointment, activity level and side effects to be aware of. DIAGNOSES: Lumbar radiculopathy with lumbar degenerative disk disease, lumbar spinal stenosis and spondylosis. PROCEDURES: Lumbar epidural steroid injection, translaminar approach at L5-S1 level using C-arm fluoroscopic guidance under sterile prep and drape using local anesthetic. MEDICATION INJECTED: A total of 120 mg Depo-Medrol plus 10 mL of preservative-free normal saline and 2 mL of Isovue for contrast. CONDITION AT DISCHARGE: Stable. The patient tolerated procedure well, had no complications. LEXI AUGUST MD DR: HENRY/hilary JOB#: [id number] / [id number]
== END | disposition home or self-care (01) ==
LOC: PNCL 07:41
PROVIDERS: ATTEND Anesthesiology
DX: M51.16 Intervertebral disc disorders with radiculopathy, lumbar region (principal); M48.061 Spinal stenosis, lumbar region without neurogenic claudication; M47.26 Other spondylosis with radiculopathy, lumbar region; M50.10 Cervical disc disorder with radiculopathy, unspecified cervical region; Z88.0 Allergy status to penicillin; Z88.6 Allergy status to analgesic agent; Z88.8 Allergy status to other drugs, medicaments and biological substances
CPT/HCPCS: 62323; J1030; J1040; Q9965

== ENCOUNTER → 2018-08-22 | Outpatient (CLI) | payer MEDICARE, OTHER ==
[~2018-08-22] MED LIST changes: -IOHEXOL 180 MG/ML 10 ML VIAL. ONE; -methylPREDNISolone ACETATE 40 MG/ML VIAL. ONE; -methylPREDNISolone ACETATE 80 MG/ML VIAL. ONE
--- NOTE | 2018-08-23 01:11 | PAIN ---
DATE OF SERVICE: 08/22/2018 PROGRESS NOTE FOR PAIN CLINIC: DIAGNOSES: 1. Cervical radiculopathy with cervical degenerative disk disease. 2. Lumbar radiculopathy with lumbar degenerative disk disease with lumbar spinal stenosis and lumbar spondylosis. HISTORY OF PRESENT ILLNESS: The patient is an 82-year-old male who returns for followup status post lumbar epidural steroid injection x 3. Most recently on 07/31/2018, the patient reports he usually does very well with these, but did not have much improvement in the pain. The patient reports significant pain in both knees with ambulation, right greater than left, but present bilaterally and has been walking with a significant limp and reports that the pain in his back has not subsided like it normally does after the injections. The patient reports his main complaint is knee pain, but the pain in the back is equally as bad. The patient reports it is a 10 on a scale of 10 at its worst, 8 on average, 6 at its least and is a 6 today. The patient reports it is aching, sharp, worse with standing, walking, but with lying down, the pain is almost completely gone. The patient reports it does not awaken him from sleep very often sporadically, but mostly from the knees. The patient is following up with his orthopedic surgeon regarding the knees and is seeing him in about 2 weeks. The patient reports no other changes. PHYSICAL EXAMINATION: VITAL SIGNS: The patient's blood pressure 131/83, pulse 53, respirations 16, temperature 97.4 degrees Fahrenheit. Height is 5 feet 11 inches, weight is 191 pounds. GENERAL: The patient is awake, alert, oriented, appropriate, very pleasant demeanor. HEENT: Head shows normocephalic, atraumatic. Extraocular movements are intact, symmetrical. Oral cavity: Mucous membranes moist and pink. Dentition is intact. NECK: Shows anterior throat supple without palpable lymphadenopathy noted. Swallow reflex is symmetrical. CHEST: Shows normal on inspection. Breath sounds clear to auscultation bilaterally. HEART: Shows S1, S2 clear. No murmurs auscultated. ABDOMEN: Soft, nontender, nondistended. No palpable organomegaly is noted. No rebound or guarding demonstrated. BACK: Shows spine grossly in the midline. Normal appearing thoracic kyphosis and lumbar lordotic curvature. Lumbar paraspinous muscle shows symmetrical on inspection. On palpation shows some moderate tenderness diffusely bilaterally, but only diffusely without significant radiation. The patient shows good rotational motion of lumbar spine, both laterally as well as extension and flexion without significant difficulty. EXTREMITIES: The patient's lower extremities show deep tendon reflexes 2+ in the patellar, 1+ tendo-calcaneus tendons. Motor exam is strong with dorsiflexion, extension, quadriceps and hamstring flexion and symmetrical bilaterally. Peripheral pulses are 1+ posterior tibial. No peripheral edema is noted. The patient's knee shows well-healed surgical scars over each knee with good range of motion and without significant pain without weightbearing. With weightbearing, the patient does have significant pain, is walking with a significant antalgic gait, appears to be favoring both of the lower extremities, not using any assistive devices. Options were discussed with the patient. The patient's old chart was reviewed as his current medication regimen updated. Current review of systems updated today as well and we will order MRI scan of lumbar spine to make sure there is nothing overlooked. It has been several years since he has had any diagnostic studies and has not responded well to the last lumbar epidural steroid injection. He is following up with his orthopedic surgeon as described in about 2 weeks. We will wait for MRI results and proceed from there. In the meantime, the patient was given Medrol Dosepak with instructions, side effects to be aware of and will follow up once this is completed. LEXI AUGUST MD DR: HENRY/hilary JOB#: [id number] / [id number]
== END | disposition home or self-care (01) ==
LOC: PNCL 11:15
PROVIDERS: ATTEND Anesthesiology
DX: M50.10 Cervical disc disorder with radiculopathy, unspecified cervical region (principal); M51.16 Intervertebral disc disorders with radiculopathy, lumbar region; M48.061 Spinal stenosis, lumbar region without neurogenic claudication; M47.26 Other spondylosis with radiculopathy, lumbar region
CPT/HCPCS: G0463

== ENCOUNTER → 2018-08-26 | Outpatient (CLI) | payer MEDICARE, OTHER ==
--- NOTE | 2018-08-26 09:05 | RAD ---
MRI Lumbar Spine without contrast History: Low back pain, bilateral leg pain Technique: Multiplanar, multi sequential noncontrast MR imaging was performed of the lumbar spine. Comparison: October 31, 2013 Findings: Most inferior fully formed intervertebral disc space is considered L5-S1. There is negligible anterior spondylolisthesis at L5-S1, left L5 spondylolysis. There is also negligible anterior spondylolisthesis at L4-5 at which there is facet degenerative change. There is very minimal posterior subluxation L1 relative L2. There has been development of anterior L1 and L2 Schmorl's nodes with associated degenerative endplate change and edema, progression of moderate L1-2 degenerative disc disease. There is minimal degenerative disc disease L3-4 and L4-5. Lumbar vertebral body stature is overall preserved other than L1 and L2 Schmorl's nodes. Conus terminates at L1-2. There is some edema of the posterior left L5 pedicle extending to the facet articular processes. L1-L2: There is now negligible disc osteophyte complex. Neural foramina and spinal canal are overall adequate. L2-L3: There is mild facet degenerative change. Spinal canal and neural foramina are adequate. L3-L4: There is mild buckling of the ligamentum flavum and right greater than left facet degenerative change. There is negligible disc osteophyte complex. There is posterior annular tear. There is mild narrowing of the far lateral recesses greater on the right. There is mild posterior neural foramina compromise bilaterally somewhat greater on the left. There is contact of the posterior surface of exiting left L3 nerve root. L4-L5: There is [id number] facet degenerative change and buckling of the ligamentum flavum, some fluid in the left facet articulation. There is mild narrowing of the far lateral recesses as seen previously. There is mild posterior narrowing of the neural foramina greater on the left. There is contact of the posterior surface of the exiting left L4 nerve root. L5-S1: There is again severe right facet hypertrophic change, mild to moderate left facet degenerative change. There is minimal buckling of the ligamentum flavum. Spinal canal is adequate. There is mild neural foramina compromise bilaterally. Impression: 1. Compared with 2013 exam, there has been progression of moderate degenerative disc disease at L1-2, new anterior Schmorl's nodes at this level with associated degenerative endplate change and endplate edema likely reactive/degenerative in etiology. 2. There is negligible anterior spondylolisthesis L4-5 and L5-S1 and negligible posterior subluxation L1 relative to L2. 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 There is some edema of the posterior left L5 pedicle extending to the facet articular processes probably reactive/degenerative in etiology. 3. There is no new significant lumbar spinal stenosis, minimal narrowing of the far lateral recesses at L3-4 and L4-5. 4. There is mild multilevel neural foramina compromise L3-4 through L5-S1. Electronically signed by: Rom Adames MD (08/26/2018 9:03 AM) [email or web address]
== END | disposition home or self-care (01) ==
LOC: MRI 07:25
PROVIDERS: ATTEND Anesthesiology
DX: M51.16 Intervertebral disc disorders with radiculopathy, lumbar region (principal); M43.16 Spondylolisthesis, lumbar region; M48.061 Spinal stenosis, lumbar region without neurogenic claudication; Z88.0 Allergy status to penicillin; Z88.6 Allergy status to analgesic agent; Z88.8 Allergy status to other drugs, medicaments and biological substances
CPT/HCPCS: 72148

== ENCOUNTER → 2018-08-28 | Outpatient (CLI) | payer MEDICARE, OTHER ==
--- NOTE | 2018-08-29 03:04 | PAIN ---
DATE OF SERVICE: 08/28/2018 DIAGNOSES: Lumbar radiculopathy with lumbar degenerative disk disease, lumbar spinal stenosis and lumbar spondylosis. HISTORY OF PRESENT ILLNESS: The patient is an 82-year-old male who returns for followup, last seen 08/22/2018, we had an order an MRI scan as patient was having significant pain in his back, was not responding to the last lumbar epidural steroid injection, before he was getting near 100% improvement for many years. The patient reports that the pain has increased in the low back, bilateral lower extremities. We discussed the MRI scan with him today showing a comparison to 10/31/2013 film showing progression of moderate degenerative disk disease with spondylolisthesis at L4-L5 and L5-S1, which is negligible. Multilevel facet degenerative change, also likely left L5 spondylosis. There is edema of the posterior left L5 pedicle. L4-L5 shows mild posterior narrowing of the neural foramen, greater in the left with contact at posterior surface of the exiting left L4 nerve root. L5 shows mild neural foraminal compromise bilaterally. L3-L4 shows mild narrowing at the far lateral recesses, greater on the right with contact at the posterior surface of the exiting left L3 nerve root. The patient still is having significant pain in his knees and mainly his chief complaint is the knee pain. He is following up with his orthopedic surgeon next week and we will ask him to give us an update on what may or may not be done at that point. The patient reports the pain is an 8 on a scale of 10 at its worst, 8 on average, 6 at its least over the past week, and is an 8 today. The patient reports it is aching, sharp, dull, tight, also in the knees bilaterally, which are aching and dull with walking and standing, better with sitting. The patient reports it awakens him from sleep occasionally, but got much better with sitting or lying down. The patient continues to stay active. He is dancing in ballroom dancing competition and has been bowling as recently as last night. The patient has been wearing a back brace, which we recommend on his last visit and feels this may help to a moderate extent. The patient reports no new motor or sensory deficits. No new bowel or bladder incontinence or other complaints. PHYSICAL EXAMINATION: VITAL SIGNS: The patient's blood pressure 130/67, pulse 55, respirations 18, temperature 98.2 degrees Fahrenheit, height is 5 feet 11 inches, weighs 187 pounds. GENERAL: The patient is awake, alert, oriented, appropriate, very pleasant demeanor. HEENT: Shows normocephalic, atraumatic. Extraocular movements are intact and symmetrical. Oral cavity: Mucous membranes moist and pink. Dentition is intact. NECK: Shows anterior throat supple without palpable lymphadenopathy noted. The patient is wearing eyeglasses. CHEST: Shows normal on inspection. Breath sounds are clear to auscultation bilaterally. HEART: Shows S1, S2 clear. No murmurs auscultated. ABDOMEN: Soft, nontender, nondistended. No palpable organomegaly is noted. No rebound or guarding demonstrated. BACK: Shows spine grossly in the midline, normal appearing thoracic kyphosis, some minor flattening of lumbar lordotic curvature. Lumbar paraspinous muscle shows symmetrical on inspection. On palpation shows some moderate tenderness, but only diffusely without radiation. The patient shows good rotational motion of lumbar spine, both laterally as well as extension and flexion without significant pain reported as well. EXTREMITIES: The patient's lower extremities show deep tendon reflexes at 2+ in the patellar, 1+ tendo calcaneus tendons are equal. Motor exam is strong with dorsiflexion, extension, quadriceps and hamstring flexion and remains 5/5 and equal bilaterally as well. Peripheral pulses are 1+ posterior tibial. No peripheral edema is noted bilaterally. Options were discussed with the patient. The patient's old chart was reviewed as was his current medication regimen updated. Current review of systems is updated today as well and we will hold on any further injections at this time as he will be eligible in September. We will have the patient continue with his back brace, also prescribed tramadol. The patient was given instruction as well as side effects to be aware of with the medication and we will follow up in approximately 4 weeks or sooner as necessary. LEXI AUGUST MD DR: HENRY/hilary JOB#: [id number] / [id number]
== END | disposition home or self-care (01) ==
LOC: PNCL 14:45
PROVIDERS: ATTEND Anesthesiology
DX: M51.16 Intervertebral disc disorders with radiculopathy, lumbar region (principal); M48.061 Spinal stenosis, lumbar region without neurogenic claudication; M47.26 Other spondylosis with radiculopathy, lumbar region
CPT/HCPCS: G0463

== ENCOUNTER → 2018-09-05 | Outpatient (CLI) | payer MEDICARE, OTHER | END | disposition home or self-care (01) | LOC: LAB 09:31 | PROVIDERS: ATTEND Orthopaedic Surgery | DX: M25.561 Pain in right knee (principal); M25.562 Pain in left knee; Z96.653 Presence of artificial knee joint, bilateral | CPT/HCPCS: 36415; 85651; 86140 ==

== ENCOUNTER → 2018-10-16 | Outpatient (CLI) | payer MEDICARE, OTHER ==
[~2018-10-16] MED LIST changes: +IOHEXOL 180 MG/ML 10 ML VIAL. ONE; +methylPREDNISolone ACETATE 40 MG/ML VIAL. ONE; +methylPREDNISolone ACETATE 80 MG/ML VIAL. ONE
--- NOTE | 2018-10-16 23:19 | PAIN ---
DATE OF SERVICE: 10/16/2018 DIAGNOSES: 1. Cervical radiculopathy with cervical degenerative disk disease and cervical spinal stenosis. 2. Lumbar radiculopathy with lumbar degenerative disk disease and lumbar spinal stenosis and spondylosis. HISTORY OF PRESENT ILLNESS: The patient is an 83-year-old male who returns for followup status post lumbar epidural steroid injections, most recently seen for this on 07/31/2018. The patient did very well about 100% improvement with each of his injections starting back in 03/2018. The patient reports that he was dancing. 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 He stepped on a sequin, which was like a glass of bead on his heel, fell on his back about 6 days ago, landing on his back and has had significant pain since that time with pain radiating into the posterior gluteus, posterior thighs, somewhat worse on the left side, but present bilaterally. The patient reports it is a 9 on a scale of 10 at its worst, 7 on average, 4 is the least and it is a 7 today. The patient reports it is aching and dull, shooting and burning at times, worse with walking, standing, change in positions, better with sitting or lying down, has not been waking him from sleep. He has gotten slightly better over the past 5-6 days on its own, but still significantly painful. The patient is taking tramadol, which is helpful as well. The patient reports no new motor or sensory deficits, no new bowel or bladder incontinence, just returning pain as described. PHYSICAL EXAMINATION: VITAL SIGNS: The patient's blood pressure 129/78, pulse 93, respirations 16, temperature 97.4 degrees Fahrenheit, height is 5 feet 11 inches, weighs 190 pounds. GENERAL: The patient is awake, alert, oriented, appropriate, very pleasant demeanor. HEENT: Head is normocephalic, atraumatic. Extraocular movements are intact and symmetrical. Oral cavity: Mucous membranes moist and pink. Dentition intact. NECK: Shows anterior throat supple without palpable lymphadenopathy noted. Swallow reflex is symmetrical. CHEST: Shows normal with inspection. Breath sounds are clear to auscultation bilaterally. HEART: Shows S1, S2 clear. No murmurs auscultated. ABDOMEN: Soft, nontender, nondistended. No palpable organomegaly is noted. No rebound or guarding demonstrated. BACK: Shows spine grossly in the midline. Normal appearing thoracic kyphosis, mild flattening of lumbar lordotic curvature. Lumbar paraspinous muscle shows symmetrical on inspection, with palpation shows some moderate tenderness diffusely throughout the upper, middle and lower distribution of paraspinous muscles bilaterally, without specific trigger points, without radiation. The patient has good rotational motion with some minor tenderness with forward flexion, but not extension, right or left lateral rotation. EXTREMITIES: Lower extremities show deep tendon reflexes at 2+ in the patellar, 1+ tendo-calcaneus tendons. Motor exam is strong with 5/5 dorsiflexion, extension, quadriceps and hamstring flexion and symmetrical as well. Peripheral pulses are 1+ posterior tibial. No peripheral edema is noted. Options were discussed with the patient. The patient's old chart was reviewed, his current medication regimen updated. Current review of systems updated today as well. We will proceed with a lumbar epidural steroid injection today as the first in this series of 4, under fluoroscopic guidance. Risks were again discussed including, but not limited to bleeding, infection, possibility of epidural hematoma, subsequent neurologic compromise, dural puncture, headache, spinal cord and/or nerve damage, side effects of steroid medication and poor results regarding pain control. The patient understands and wished to proceed. The patient will return to clinic in approximately 2 weeks for followup, was counseled as to return appointment, activity level and side effects to be aware of. DIAGNOSIS: Lumbar radiculopathy with lumbar degenerative disk disease, lumbar spinal stenosis, spondylosis. PROCEDURE: Lumbar epidural steroid injection translaminar approach L5-S1 under fluoroscopic guidance under sterile prep and drape using local anesthetic. MEDICATION INJECTED: A total of 120 mg Depo-Medrol plus 10 mL of preservative-free normal saline and 2 mL of contrast. CONDITION AT DISCHARGE: Stable. The patient tolerated the procedure well, had no complications. LEXI AUGUST MD DR: HENRY/hilary JOB#: [id number] / [id number]
== END ==
LOC: PNCL 09:23
PROVIDERS: ATTEND Anesthesiology
DX: M51.16 Intervertebral disc disorders with radiculopathy, lumbar region (principal); M47.816 Spondylosis without myelopathy or radiculopathy, lumbar region; M48.061 Spinal stenosis, lumbar region without neurogenic claudication; M50.10 Cervical disc disorder with radiculopathy, unspecified cervical region; M48.02 Spinal stenosis, cervical region
CPT/HCPCS: 62323; J1030; J1040; Q9965

== ENCOUNTER → 2018-12-11 | Outpatient (CLI) | payer MEDICARE, OTHER ==
--- NOTE | 2018-12-11 10:47 | PAIN ---
DATE OF SERVICE: 12/11/2018 PROGRESS NOTE FOR PAIN CLINIC DIAGNOSES: Lumbar radiculopathy with lumbar degenerative disk disease, lumbar spinal stenosis and spondylosis. HISTORY OF PRESENT ILLNESS: The patient is an 83-year-old male, who returns for followup status post lumbar epidural steroid injection x 1, last seen on 10/16/2018. The patient reports he did very well with about 100% improvement overall in his low back and lower extremity pain. The patient reports no new motor or sensory deficits, no new bowel or bladder incontinence, but has been with increasing pain over the past week or so with activity. He has been bowling quite a bit, also doing some dance competitions. The patient reports his pain is 8 on a scale of 10 at its worst over the past week, 7 on an average, 5 at its least and is a 5 today. The patient reports it is aching and dull, sometimes sharp and shooting into the legs, but mostly in the low back. The patient reports it does not awaken him from sleep at night. It is much better with sitting or lying down, worse with walking, standing, changing positions, activity. PHYSICAL EXAMINATION: VITAL SIGNS: The patient's blood pressure is 116/66, pulse 59, respirations 18, temperature 97.4 degrees Fahrenheit, height is 5 feet 11 inches, weight is 193 pounds. GENERAL: The patient is awake, alert, oriented, appropriate, very pleasant demeanor. HEENT: Shows normocephalic, atraumatic. Extraocular movements are intact and symmetrical. Oral cavity, mucous membranes are moist and pink. Dentition is intact. NECK: Shows anterior throat supple without palpable lymphadenopathy noted. Swallow reflex symmetrical. CHEST: Shows normal on inspection. Breath sounds are clear to auscultation bilaterally. HEART: Shows S1, S2 clear. No murmurs auscultated. ABDOMEN: Soft, nontender and nondistended. No palpable organomegaly is noted. No rebound or guarding demonstrated. BACK: Shows spine grossly in the midline. Normal-appearing thoracic kyphosis and minor flattening of lumbar lordotic curvature. Lumbar paraspinous muscle shows symmetrical on inspection, on palpation shows some moderate tenderness diffusely bilaterally going diffusely without radiation. EXTREMITIES: The patient's lower extremities show deep tendon reflexes at 2+ in the patellar and tendo-calcaneus tendons are 1+. Motor exam is strong with 5/5 dorsiflexion, extension, quadriceps and hamstring flexion equal. Peripheral pulses are 1+ posterior tibial. No peripheral edema is noted bilaterally. Options were discussed with the patient. The patient's old chart was reviewed as his current medication regimen updated. Current review of systems updated today as well. We will proceed with a second in a series of lumbar epidural steroid injection today with fluoroscopic guidance. Risks were again discussed including, but not limited to bleeding, infection, possibility of epidural hematoma, subsequent neurologic compromise, dural puncture, headaches, spinal cord and/or nerve damage, side effects of steroid medication and poor results regarding pain control. The patient understands and wishes to proceed. The patient will return to the clinic in approximately 2 weeks for followup. He was counseled on return appointment, activity level and side effects to be aware of. DIAGNOSES: Lumbar radiculopathy with lumbar degenerative disk disease and lumbar spinal stenosis and lumbar spondylosis. PROCEDURE: Lumbar epidural steroid injection, translaminar approach, L5-S1 level, using C-arm fluoroscopic guidance under sterile prep and drape using local anesthetic. MEDICATION INJECTED: A total of 120 mg Depo-Medrol plus 10 mL of preservative-free normal saline and 2 mL of Isovue contrast. CONDITION AT DISCHARGE: Stable. The patient tolerated the procedure well, had no complications. LEXI AUGUST MD DR: HENRY/hilary JOB#: [id number] / [id number]
== END ==
LOC: PNCL 09:09
PROVIDERS: ATTEND Anesthesiology
DX: M51.16 Intervertebral disc disorders with radiculopathy, lumbar region (principal); M48.061 Spinal stenosis, lumbar region without neurogenic claudication; M47.816 Spondylosis without myelopathy or radiculopathy, lumbar region
CPT/HCPCS: 62323; J1030; J1040; Q9965

== ENCOUNTER → 2019-02-05 | Outpatient (CLI) | payer MEDICARE, OTHER ==
[~2019-02-05] MED LIST changes: +CBD TOP
--- NOTE | 2019-02-05 12:32 | PAIN ---
DATE OF SERVICE: 02/05/2019 PROGRESS NOTE FOR PAIN CLINIC DIAGNOSES: 1. Lumbar radiculopathy with lumbar degenerative disk disease, lumbar spinal stenosis and lumbar spondylosis. 2. Cervical radiculopathy with cervical degenerative disk disease. 3. Myofascial pain. HISTORY OF PRESENT ILLNESS: The patient is an 83-year-old male who returns for followup status post lumbar epidural steroid injection x 2, most recently 12/11/2018. The patient did very well with this about 100% improvement for the first 5 weeks, the pain is returning now over the past 5 days in the low back and the bilateral lower extremities. The patient reports in the posterior gluteus, posterior thighs, posterior calves as well as some pain in his knees but he is doing well with some topical ointments for this. The patient reports back is increasing with activity, standing, walking, changing positions. The patient continues to do competitive ballroom dancing as well as bowling 2 nights a week in a competitive league with good comfort for the most part until the last few days. The patient reports the pain in the last week has as 4 on a scale of 10 at its worst, 4 on average, 1 at its least and is a 4 today. The patient reports it is aching and dull in the low back, radiating, burning, shooting into the lower extremities. The patient reports it does not awaken him from sleep at night, much better with sitting or lying down. No new motor or sensory deficits, no bowel or bladder incontinence or other complaints. PHYSICAL EXAMINATION: VITAL SIGNS: The patient's blood pressure is 124/53, pulse is 60, respirations are 16, temperature 97.9 degrees Fahrenheit, height is 5 feet 11 inches and weight is 194 pounds. GENERAL: The patient is awake, alert, oriented, appropriate, very pleasant demeanor. HEENT: Shows normocephalic, atraumatic. Extraocular movements are intact and symmetrical. Oral cavity: Mucous membranes moist and pink. Dentition is intact. NECK: Shows anterior throat supple. CHEST: Shows normal on inspection. Breath sounds clear bilaterally. HEART: Shows S1, S2 clear. No murmurs auscultated. ABDOMEN: Soft, nontender, nondistended. No palpable organomegaly is noted. No rebound or guarding demonstrated. BACK: Shows spine grossly in the midline. Normal appearing thoracic kyphosis, some minor flattening of lumbar lordotic curvature. Lumbar paraspinous muscle shows symmetrical on inspection, on palpation shows some moderate tenderness diffusely, but only diffusely without significant radiation in the bilateral lower lumbar paraspinous muscle. The patient has good rotational motion of lumbar spine, both laterally as well as extension and flexion without difficulty. EXTREMITIES: Lower extremities show deep tendon reflexes 2+ in the patellar, 1+ tendo-calcaneus tendons. Motor exam is strong with 5/5 dorsiflexion, extension, quadriceps and hamstring flexion, symmetrical and equal. Peripheral pulses are 1+ posterior tibia. No peripheral edema bilaterally. Options were discussed with the patient. The patient's old chart was reviewed as his current medication regimen updated. Current review of systems updated today as well. We will proceed with a third in a series of lumbar epidural steroid injection today with fluoroscopic guidance. Risks were again discussed including, but not limited to bleeding, infection, possibility of epidural hematoma, subsequent neurological compromise, dural puncture, headaches, spinal cord and/or nerve damage, side effects of steroid medication and poor results regarding pain control. The patient understands and wished to proceed. The patient will return to clinic in approximately 2 weeks for followup. He was counseled on return appointment, activity level and side effects to be aware of. DIAGNOSES: Lumbar radiculopathy with lumbar degenerative disk disease, lumbar spinal stenosis and lumbar spondylosis. PROCEDURE: Lumbar epidural steroid injection, translaminar approach at the L5-S1 level using C-arm fluoroscopic guidance under sterile prep and drape using local anesthetic. MEDICATION INJECTED: A total of 120 mg of Depo-Medrol plus 10 mL of preservative-free normal saline and 2 mL of contrast. CONDITION AT DISCHARGE: Stable. The patient tolerated procedure well, had no complications. LEXI AUGUST MD DR: HENRY/hilary JOB#: [id number] / [id number]
== END ==
LOC: PNCL 10:51
PROVIDERS: ATTEND Anesthesiology
DX: M51.16 Intervertebral disc disorders with radiculopathy, lumbar region (principal); M96.1 Postlaminectomy syndrome, not elsewhere classified; M47.816 Spondylosis without myelopathy or radiculopathy, lumbar region; M79.18 Myalgia, other site; M50.10 Cervical disc disorder with radiculopathy, unspecified cervical region
CPT/HCPCS: 62323; J1030; J1040; Q9965

== ENCOUNTER → 2019-04-18 | Outpatient (CLI) | payer MEDICARE, OTHER ==
[~2019-04-18] MED LIST changes: +NAPR-683 PO; -OMEP20CA10 PO; +OMEP20CA16 PO; +SIMV10TA15 PO; -SIMV10TA3 PO
--- NOTE | 2019-04-18 14:05 | PAIN ---
DATE OF SERVICE: 04/18/2019 PROGRESS NOTE FOR PAIN CLINIC DIAGNOSES: 1. Lumbar radiculopathy with lumbar degenerative disk disease, lumbar spinal stenosis and lumbar spondylosis. 2. Cervical radiculopathy with cervical degenerative disk disease. 3. Myofascial pain. HISTORY OF PRESENT ILLNESS: The patient is an 83-year-old male who returns for followup status post lumbar epidural steroid injection, most recently 02/05/2019, patient did very well with about 100% improvement for six weeks after the injection. The patient reports the pain is returning now in the low back bilaterally in the lower extremities, posterior gluteus, posterior thighs, posterior calf and only with extended activity. Initially, he was doing much better with distance walking, doing work activities, household activities. 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 The patient reports he also had an injury to his left wrist, he is now wearing a splint on his left wrist as well with some tendinitis and arthritis diagnosed and is now taking Naprosyn twice daily at 500 mg. The patient reports no new motor or sensory deficits, still significant pain in the low back, described as aching, sharp, dull, alternating in the back itself. The patient reports it is an 8 on a scale of 10 and it is worst in the last week, 8 on average, 3 at is least and it is an 8 today. PHYSICAL EXAMINATION: VITAL SIGNS: The patient's blood pressure 130/74, pulse 60, respirations 18, temperature 97.4 degrees Fahrenheit, height is 5 feet 11 inches, weight is 203 pounds. GENERAL: The patient is awake, alert, oriented, appropriate, very pleasant demeanor. HEENT: Shows normocephalic, atraumatic. Extraocular movements are intact and symmetrical. Oral cavity: Mucous membranes moist and pink. Dentition is intact. NECK: Shows supple without palpable lymphadenopathy noted. Swallow reflex symmetrical. CHEST: Shows normal on inspection. Breath sounds are clear bilaterally. HEART: Shows S1, S2 clear. No murmurs auscultated. ABDOMEN: Soft, nontender, nondistended. No palpable organomegaly is noted. No rebound or guarding demonstrated. BACK: Shows spine grossly in the midline. Slight exaggeration of thoracic kyphosis, some minor flattening of lumbar lordotic curvature. Lumbar paraspinous muscle shows symmetrical on inspection, with palpation shows some mild tenderness throughout the upper, middle and lower distribution of the paraspinous musculature, but only diffusely without atrophy, hypertrophy without trigger points, without radiation. The patient does show good rotational motion of lumbar spine, both laterally as well as extension and flexion without significant difficulty. EXTREMITIES: The patient's lower extremities show deep tendon reflexes at 2+ in the patellar, 1+ tendo-calcaneus tendons. Motor exam is strong with 5/5 dorsiflexion, extension, quadriceps and hamstring flexion and symmetrical. Peripheral pulses are 1+. No peripheral edema is noted bilaterally. PLAN: Options were discussed with the patient. The patient's old chart was reviewed as his current medication regimen updated. Current review of systems updated today as well. We will proceed with a first in this series of lumbar epidural steroid injection today with fluoroscopic guidance. Risks were again discussed including, but not limited to bleeding, infection, possibility of epidural hematoma, subsequent neurological compromise, dural puncture, headaches, spinal cord and/or nerve damage, side effects of steroid medication and poor results regarding pain control. The patient understands and wished to proceed. The patient will return to clinic in approximately 2 weeks for followup. He was counseled on return appointment, activity level and side effects to be aware of. DIAGNOSES: Lumbar radiculopathy with lumbar spinal stenosis, lumbar degenerative disk disease and lumbar spondylosis. PROCEDURE: Lumbar epidural steroid injection, translaminar approach L5-S1 level using C-arm fluoroscopic guidance under sterile prep and drape using local anesthetic. MEDICATION INJECTED: A total of 120 mg Depo-Medrol plus 10 mL of preservative-free normal saline and 2 mL of contrast. CONDITION AT DISCHARGE: Stable. The patient tolerated the procedure well, had no complications. LEXI AUGUST MD DR: HENRY/hilary JOB#: [id number] / [id number]
== END ==
LOC: PNCL 08:39
PROVIDERS: ATTEND Anesthesiology
DX: M51.16 Intervertebral disc disorders with radiculopathy, lumbar region (principal); M50.10 Cervical disc disorder with radiculopathy, unspecified cervical region; M79.18 Myalgia, other site
CPT/HCPCS: 62323; J1030; J1040; Q9965

== ENCOUNTER → 2019-06-13 | Outpatient (CLI) | payer MEDICARE, OTHER ==
[~2019-06-13] MED LIST changes: +TAMS0.4C97 PO
--- NOTE | 2019-06-13 10:13 | PAIN ---
DATE OF SERVICE: 06/13/2019 PROGRESS NOTE FOR PAIN CLINIC DIAGNOSES: Lumbar radiculopathy with lumbar spinal stenosis, lumbar degenerative disk disease and lumbar spondylosis. HISTORY OF PRESENT ILLNESS: The patient is an 83-year-old male who returns for followup status post lumbar epidural steroid injection x1. The patient reports about 100% improvement for the first month and a half, and the pain began to return in the low back into the bilateral lower extremities, slightly worse on the left than the right, but present bilaterally. The patient reports it is in the posterior gluteus, posterior thighs, again mostly in the low back and into the lower extremity on the left. The patient reports it is a 7 on a scale of 10 at its worst over the past week, 4 on average, 2 at its least and is a 2 today. The patient reports it is dull, aching pain, some shooting pain in the leg as well, but without any new motor or sensory deficits, no new bowel or bladder incontinence. The patient reports it does not awake him from sleep generally, worse with walking, standing, changing positions. The patient has been playing a lot of bowling lately, also does competitive ballroom dancing and maintains this and staying very active. The patient reports he feels better when he is up and moving most times. PHYSICAL EXAMINATION: VITAL SIGNS: The patient's blood pressure 141/75, pulse 51, respirations 18, temperature 97.7 degrees Fahrenheit, weight is 199 pounds. GENERAL: The patient is awake, alert, oriented, appropriate, very pleasant demeanor. HEENT: Shows normocephalic, atraumatic. Extraocular movements are intact and symmetrical. Oral cavity: Mucous membranes moist and pink. Dentition is intact. NECK: Shows anterior throat supple without palpable lymphadenopathy noted. Swallow reflex symmetrical. CHEST: Shows normal on inspection. Breath sounds clear to auscultation bilaterally. HEART: Shows S1, S2 clear. No murmurs auscultated. ABDOMEN: Soft, nontender, nondistended. No palpable organomegaly is noted. No rebound or guarding demonstrated. BACK: Shows spine grossly in the midline. Normal appearing thoracic kyphosis and slight flattening of lumbar lordotic curvature. Lumbar paraspinous muscle shows symmetrical on inspection, on palpation shows some moderate tenderness diffusely bilaterally, but only diffusely without significant radiation. The patient has good rotational motion of lumbar spine, both laterally as well as extension and flexion without significant pain reported. EXTREMITIES: The patient's lower extremities show deep tendon reflexes 2+ in the patellar, 1+ tendo-calcaneus tendons. Motor exam is strong with 5/5 dorsiflexion, extension, quadriceps, and hamstring flexion. Peripheral pulses are 1+ posterior tibia. No peripheral edema is noted bilaterally. Options were discussed with the patient. The patient's old chart was reviewed as his current medication regimen updated. Current review of systems updated today as well. We will proceed with a second in the series of lumbar epidural steroid injection today with fluoroscopic guidance. Risks were again discussed including, but not limited to bleeding, infection, possibility of epidural hematoma, subsequent neurological compromise, dural puncture, headaches, spinal cord and/or nerve damage, side effects of steroid medication and poor results regarding pain control. The patient understands and wished to proceed. The patient will return to clinic in approximately 2 weeks for followup. He was counseled on return appointment, activity level and side effects to be aware of. DIAGNOSES: Lumbar radiculopathy with lumbar spinal stenosis, lumbar degenerative disk disease and lumbar spondylosis. PROCEDURE: Lumbar epidural steroid injection, translaminar approach L5-S1 level using C-arm fluoroscopic guidance under sterile prep and drape using local anesthetic. MEDICATION INJECTED: A total of 120 mg Depo-Medrol plus 10 mL of preservative-free normal saline and 2 mL of contrast. CONDITION AT DISCHARGE: Stable. The patient tolerated the procedure well, had no complications. LEXI AUGUST MD DR: HENRY/hilary JOB#: [id number] / [id number]
== END ==
LOC: PNCL 08:07
PROVIDERS: ATTEND Anesthesiology
DX: M51.16 Intervertebral disc disorders with radiculopathy, lumbar region (principal); M48.061 Spinal stenosis, lumbar region without neurogenic claudication; M47.816 Spondylosis without myelopathy or radiculopathy, lumbar region
CPT/HCPCS: 62323; J1030; J1040; Q9965

== ENCOUNTER → 2019-08-08 | Outpatient (CLI) | payer MEDICARE, OTHER ==
--- NOTE | 2019-08-08 09:14 | PAIN ---
DATE OF SERVICE: 08/08/2019 PROGRESS NOTE FOR PAIN CLINIC DIAGNOSES: 1. Lumbar radiculopathy with lumbar degenerative disk disease, lumbar spinal stenosis and lumbar spondylosis. 2. Cervical radiculopathy with cervical degenerative disk disease. 3. Myofascial pain. HISTORY OF PRESENT ILLNESS: The patient is an 83-year-old male, who returns for followup status post lumbar epidural steroid injection x 2, last seen on 06/13/2019. The patient did very well with about 100% improvement until the last 4 days. The patient reports the pain returned without any specific injury or action, which is in the low back, slightly to the left side into the lower extremities, more on the left in the posterior gluteus, posterior thigh and calf, mostly across the low back. The patient reports before that he was doing very well with increased walking activities, doing household activities, competitive dancing and bowling as well. The patient reports no new motor or sensory deficits, rates his pain as a 5 on a scale of 10 now at its worst in the past week, 3 on an average, 1 at its least and is a 1 today. The patient reports it is dull and aching in the low back and mostly in the left leg, but into the right as well. The patient reports it does not awaken him from sleep at night, he is sleeping well. No new motor or sensory deficits. No new bowel or bladder incontinence or other complaints. PHYSICAL EXAMINATION: VITAL SIGNS: The patient's blood pressure is 132/76, pulse 64, respirations 16, temperature 97.7 degrees Fahrenheit, weight is 193 pounds. GENERAL: The patient is awake, alert, oriented, appropriate, very pleasant demeanor. HEENT: Shows normocephalic, atraumatic. Extraocular movements are intact and symmetrical. The patient is wearing eyeglasses. Oral cavity: Mucous membranes moist and pink; dentition is intact. NECK: Shows anterior throat supple without palpable lymphadenopathy noted. Swallow reflex symmetrical. CHEST: Shows normal on inspection. Breath sounds are clear bilaterally. HEART: Shows S1, S2 clear. No murmurs auscultated. ABDOMEN: Soft, nontender and nondistended. No palpable organomegaly is noted. There is no rebound or guarding demonstrated. BACK: Shows spine grossly in the midline, normal-appearing thoracic kyphosis and minor flattening of lumbar lordotic curvature. Lumbar paraspinous muscle shows symmetrical on inspection, on palpation shows some [id number] tenderness diffusely in the low lumbar distribution, but only diffusely bilaterally in the lower distribution of the paraspinous muscles. No tenderness over the spinous processes, sacrum or sacroiliac regions. The patient has good rotational motion of lumbar spine both laterally as well as extension and flexion without significant difficulty. EXTREMITIES: Lower extremities show deep tendon reflexes at 2+ in the patellar, 1+ in the tendo-calcaneus tendons. Motor exam is strong with 5/5 dorsiflexion, extension, quadriceps and hamstring flexion symmetrical. Peripheral pulses are 1+ posterior tibia. No peripheral edema bilaterally. Options were discussed with the patient. The patient's old chart was reviewed as his current medication regimen updated. Current review of systems updated today as well. We will proceed with a third in the series of lumbar epidural steroid injection today with fluoroscopic guidance. Risks were again discussed including, but not limited to bleeding, infection, possibility of epidural hematoma, subsequent neurological compromise, dural puncture, headaches, spinal cord and/or nerve damage, side effects of steroid medication and poor results regarding pain control. The patient understands and wished to proceed. The patient will return to the clinic in approximately 2 weeks for followup. He was counseled as to the return appointment, activity level and side effects to be aware of. DIAGNOSIS: Lumbar radiculopathy with lumbar degenerative disk disease, lumbar spinal stenosis and lumbar spondylosis. PROCEDURE: Lumbar epidural steroid injection, translaminar approach, L5-S1 level, using C-arm fluoroscopic guidance under sterile prep and drape using local anesthetic. MEDICATIONS INJECTED: A total of 120 mg Depo-Medrol plus 10 mL of preservative-free normal saline and 2 mL of contrast. CONDITION AT DISCHARGE: Stable. The patient tolerated the procedure well, had no complications. LEXI AUGUST MD DR: HENRY/hilary JOB#: [id number] / [id number]
== END | disposition home or self-care (01) ==
LOC: PNCL 07:58
PROVIDERS: ATTEND Anesthesiology
DX: M51.16 Intervertebral disc disorders with radiculopathy, lumbar region (principal); M47.26 Other spondylosis with radiculopathy, lumbar region; M48.061 Spinal stenosis, lumbar region without neurogenic claudication; M50.10 Cervical disc disorder with radiculopathy, unspecified cervical region; M79.18 Myalgia, other site; Z98.890 Other specified postprocedural states; Z88.0 Allergy status to penicillin; Z88.8 Allergy status to other drugs, medicaments and biological substances; Z88.6 Allergy status to analgesic agent
CPT/HCPCS: 62323; J1030; J1040; Q9965

== ENCOUNTER → 2019-10-03 | Outpatient (CLI) | payer MEDICARE, OTHER ==
[~2019-10-03] MED LIST changes: -DICL100G18 TP; +DICL100G54 TP
--- NOTE | 2019-10-03 15:00 | PAIN ---
DATE OF SERVICE: 10/03/2019 PROGRESS NOTE FOR PAIN CLINIC DIAGNOSES: Lumbar radiculopathy with lumbar degenerative disk disease, lumbar spinal stenosis, and lumbar spondylosis. HISTORY OF PRESENT ILLNESS: The patient is an 84-year-old male who returns for followup status post lumbar epidural steroid injections x 3, most recently 08/08/2019. The patient did very well with about 100% improvement until the last week. He was playing dominoes and sitting in a chair, the chair folded underneath him, he fell, nolan his back as well as his right knee and his left wrist. The patient reports he had x-rays of both of these yesterday, but does not feel they are too painful. The patient's back has been nolan significantly. The patient reports it is in the low back, bilateral lower extremities, posterior gluteus, posterior thighs, posterior calves bilaterally with some radiating pain, becoming worse with walking, standing, changing positions. Until last week, he was doing great with walking, doing work activities, household activities, recreational activities. 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 The patient reports otherwise no new motor or sensory deficit. He has been sleeping well at night, and still does not awaken him from sleep. The patient reports the pain is aching and dull in the back and shooting in the legs, becoming more constant. The patient rates it as 7 on a scale of 10 at its worst in the past week, 4 on average, 3 at its least and is a 4 today. PHYSICAL EXAMINATION: VITAL SIGNS: The patient's blood pressure 132/78, pulse 57, respirations 18, temperature 97.6 degrees Fahrenheit, weight is 199 pounds. GENERAL: The patient is awake, alert, oriented, appropriate, very pleasant demeanor. HEENT: Shows normocephalic, atraumatic. Extraocular movements are intact and symmetrical. Oral cavity: Mucous membranes moist and pink. Dentition is intact. NECK: Shows anterior throat supple without palpable lymphadenopathy noted. Swallow reflex symmetrical. CHEST: Shows normal on inspection. Breath sounds are clear bilaterally. HEART: Shows S1, S2 clear. No murmurs auscultated. ABDOMEN: Soft, nontender, nondistended. No palpable organomegaly is noted. There is no rebound or guarding demonstrated. BACK: Shows spine grossly in the midline. Normal appearing thoracic kyphosis and minor flattening of lumbar lordotic curvature. Lumbar paraspinous muscle shows symmetrical on inspection, with palpation shows some moderate tenderness diffusely bilaterally, but only diffusely without significant tenderness or radiation. The patient has good rotational motion of lumbar spine, both laterally as well as extension and flexion without significant difficulty. EXTREMITIES: The patient's lower extremities show deep tendon reflexes at 2+ in the patellar, 1+ tendo-calcaneus tendons. Motor exam is strong with 5/5 dorsiflexion, extension, quadriceps and hamstring flexion symmetrical. Peripheral pulses are 1+ posterior tibia. No peripheral edema bilaterally. Options were discussed with the patient. The patient's old chart was reviewed as his current medication regimen updated. Current review of systems updated today as well and we will proceed with a lumbar epidural steroid injection today with fluoroscopic guidance. Risks were again discussed including, but not limited to bleeding, infection, possibility of epidural hematoma, subsequent neurologic compromise, dural puncture, headaches, spinal cord and/or nerve damage, side effects of steroid medication and poor results regarding pain control. The patient understands and wished to proceed. The patient will return to clinic in approximately 2 weeks for followup. He was counseled as to return appointment, activity level and side effects to be aware of. DIAGNOSES: Lumbar radiculopathy with lumbar degenerative disk disease, lumbar spinal stenosis and lumbar spondylosis. PROCEDURE: Lumbar epidural steroid injection, translaminar approach at the L5-S1 level using C-arm fluoroscopic guidance under sterile prep and drape using local anesthetic. MEDICATION INJECTED: A total of 120 mg Depo-Medrol plus 10 mL of preservative-free normal saline and 2 mL of contrast. CONDITION AT DISCHARGE: Stable. The patient tolerated the procedure well, had no complications. LEXI AUGUST MD DR: HENRY/hilary JOB#: [id number] / [id number]
== END ==
LOC: PNCL 07:49
PROVIDERS: ATTEND Anesthesiology
DX: M51.16 Intervertebral disc disorders with radiculopathy, lumbar region (principal); M47.816 Spondylosis without myelopathy or radiculopathy, lumbar region; M48.061 Spinal stenosis, lumbar region without neurogenic claudication
CPT/HCPCS: 62323; J1030; J1040; Q9965

== ENCOUNTER → 2019-12-05 | Outpatient (CLI) | payer MEDICARE, OTHER ==
--- NOTE | 2019-12-05 08:43 | PDOC ---
Progress Note - Pain Clinic Date of Service: DOS: DATE: 12/05/19 TIME: 08:39 Diagnosis: Dx: Lumbar radiculopathy with lumbar degenerative disc disease lumbar spinal stenosis and lumbar spondylosis History or Present Illness: HPI: 84-year-old male returns follow-up status post lumbar epidurals injection x1. Patient last received that October 03, 2019 patient which did very well her percent improvement for the first few weeks until the past week or so the pain is been returning in the low back and bilateral lower extremities posterior gluteus posterior thighs posterior calf specially on the left side greater than right. Patient which is been very active in bowling doing competitive ballroom dancing as well which she is was very comfortable with the first few weeks but now the pain is returned patient reports it does not awaken her from sleep at night feels better with sitting or laying down worse with walking standing changing positions or bending. Patient reports pain is a 7 on scale 10 is worse with the past week 5 on average 3 to sleep and is a 5 today patient which is aching and dull sharp at times in the low back with radiating pain in the left lower extremity. Patient reports no new motor or sensory deficits no new bowel or bladder incontinence or other complaints. Physical Exam: VS: Pressure is 132/83 pulse 63 respirations are 18 temperature is 97.6 F height is 5 foot 11 inches weight is 1 9 8 pounds PE: PHYSICAL EXAMINATION: GENERAL: The patient is awake, alert, oriented, appropriate, very pleasant demeanor HEENT: Shows normocephalic, atraumatic. Extraocular movements are intact and symmetrical. NECK: Shows anterior throat supple without palpable lymphadenopathy noted. Swallow reflex symmetrical. CHEST: Shows normal on inspection. Breath sounds are clear bilaterally, no rales rhonchi or wheezes auscultated. HEART: Shows S1, S2 clear. No murmurs auscultated. ABDOMEN: Soft, nontender, nondistended. No palpable organomegaly is noted. No rebound or guarding demonstrated. BACK: Shows spine grossly in the midline. Normal-appearing cervical lordotic curvature. There is slightly increased thoracic kyphosis, some minor flattening of the lumbar lordotic curvature. Lumbar paraspinous muscles show symmetrical on inspection, on palpation shows some moderate tenderness diffusely throughout the upper, middle and lower distribution of the paraspinous muscles bilaterally firm and tender, but without specific trigger points, without radiation of pain. The patient has good rotational motion of the lumbar spine, both laterally as well as extension and flexion without significant difficulty. No tenderness over the spinous processes, sacrum or sacroiliac regions. EXTREMITIES: Lower extremities show deep tendon reflexes plus in the patellar and tendo calcaneus tendons. Motor exam is 5 on a scale of 5 with right dorsiflexion, extension, quadriceps and hamstring flexion and 5/5 on the left. Peripheral pulses are 1+ posterior tibial. No peripheral edema is noted bilaterally. Lower extremities are warm and dry to touch, equal in color and appearance. SKIN: Shows warm and dry, good turgor. No edema. No sores, rashes or bruising throughout. Procedure: Procedure: Options are discussed with the patient. Patient's old chart was reviewed his his current medication regimen updated current review of systems updated today as well. We will proceed with a second and a series lumbar epidural steroid injection today with fluoroscopic guidance risks again discussed including but not limited to bleeding infection possibility of epidural hematoma and subsequent neurological compromise dural puncture headache spinal cord and or nerve damage side effects of steroid medication and/guarding pain control. Patient understands wished to proceed, patient was counseled as to return appointment activity level and side effects to be aware. Patient return to clinic in approximately 2 weeks for follow-up. Medication Injected: Med Injected: Procedure is lumbar epidural steroid injection under local anesthetic using sterile prep and drape at the L5-S1 level using C-arm fluoroscopic guidance in both AP and lateral views medications injected is 120 mg Depo-Medrol + 10 mL preservative-free normal saline and 2ml contrast- condition at discharge is stable patient tolerated procedure well had no complications. Condition at Discharge: Condition at Discharge: Condition at discharge is stable, patient tolerated procedure well had no complications. LEXI AUGUST MD Dec 05, 2019 08:42
== END | disposition home or self-care (01) ==
LOC: PNCL 07:45
PROVIDERS: ATTEND Anesthesiology
DX: M51.16 Intervertebral disc disorders with radiculopathy, lumbar region (principal); M47.896 Other spondylosis, lumbar region; M48.061 Spinal stenosis, lumbar region without neurogenic claudication; Z88.0 Allergy status to penicillin; Z88.8 Allergy status to other drugs, medicaments and biological substances; Z87.891 Personal history of nicotine dependence; Z72.89 Other problems related to lifestyle; Z79.899 Other long term (current) drug therapy
CPT/HCPCS: 62323; J1030; J1040; Q9965

== ENCOUNTER → 2020-01-09 | Outpatient (CLI) | payer MEDICARE, OTHER ==
[~2020-01-09] MED LIST changes: +BUPIVACAINE MPF 0.25% 10 ML VIAL. ONE; -IOHEXOL 180 MG/ML 10 ML VIAL. ONE; -methylPREDNISolone ACETATE 80 MG/ML VIAL. ONE
--- NOTE | 2020-01-09 08:23 | PDOC ---
Progress Note - Pain Clinic Date of Service: DOS: DATE: 01/09/20 TIME: 08:18 Diagnosis: Dx: Lumbar radiculopathy with lumbar degenerative disease lumbar spinal stenosis and lumbar spondylosis Cervical radiculopathy with cervical degenerative disease Myofascial pain History or Present Illness: HPI: 84-year-old male returns follow-up status post lumbar epidural straight injections x2 last seen December 05, 2019. Patient reports initially did very well but the pain is returning now it is different by his description in the low and mid back also in the upper back to some extent patient which is very tight and stabbing pain also dull aching pain at night waking him from sleep initially was doing very well with increased activity walking doing work activities household activities recreational activities bowling competitively and dancing competitively without significant increase in pain patient reports over the past week or so pains began to return but is been very much different and spastic in the low back it hurt too much for him to bowl yesterday. Patient reports the pain is different does not generally like his pain describes it as aching and dull sharp and stabbing in the low back itself but not rating to the lower extremities. Patient which is hard to rotate his lumbar spine disease feels that he is stiff and without full mobility. Reports no loss of motor function no bowel or bladder incontinence Physical Exam: VS: Blood pressure is 130/75 pulse 54 respiration 16 temperature is 97.7 F height is 5 foot 11 inches weight is 195 pounds PE: PHYSICAL EXAMINATION: GENERAL: The patient is awake, alert, oriented, appropriate, very pleasant demeanor HEENT: Shows normocephalic, atraumatic. Extraocular movements are intact and s ymmetrical. Oral cavity: Mucous membranes moist and pink. NECK: Shows anterior throat supple without palpable lymphadenopathy noted. Swallow reflex symmetrical. CHEST: Shows normal on inspection. Breath sounds are clear bilaterally, no rales rhonchi or wheezes auscultated. HEART: Shows S1, S2 clear. No murmurs auscultated. ABDOMEN: Soft, nontender, nondistended. No palpable organomegaly is noted. No rebound or guarding demonstrated. BACK: Shows spine grossly in the midline. Normal-appearing cervical lordotic curvature. There is slightly increased thoracic kyphosis, some minor flattening of the lumbar lordotic curvature. Lumbar paraspinous muscles show symmetrical on inspection, on palpation shows some moderate tenderness diffusely throughout the upper, middle and lower distribution of the paraspinous muscles bilaterally with very firm ropelike musculature throughout the lumbar paraspinous muscles consistent with trigger point areas of musculature but without specific radiation. the lower thoracic paraspinous musculature, firm and tender with multiple areas of very firm ropelike musculature in the inferior aspect of the thoracic paraspinous muscles consistent with trigger point areas of musculature but without radiation of pain. The patient has good rotational motion of the lumbar spine, both laterally as well as extension and flexion without significant difficulty. No tenderness over the spinous processes, sacrum or sacroiliac regions. EXTREMITIES: Lower extremities show deep tendon reflexes 2+ in the patellar and tendo calcaneus tendons. Motor exam is 5 on a scale of 5 with right dorsiflexion, extension, quadriceps and hamstring flexion and 5/5 on the left. Peripheral pulses are 1+ posterior tibial. No peripheral edema is noted bilaterally. Lower extremities are warm and dry to touch, equal in color and appearance. SKIN: Shows warm and dry, good turgor. No edema. No sores, rashes or bruising throughout. Procedure: Procedure: Options were discussed with the patient. Patient's old chart was reviewed his current medication regimen updated current review of systems updated today as well. We will proceed with trigger point injections of the identified musculature bilateral thoracic paraspinous muscular bilateral lumbar paraspinous posterior and bilateral gluteus musculature. Risks were discussed including but not limited to bleeding infection possibility of intravascular injection and sequelae spread of local anesthetic and numbness side effects of steroid medicat ion and poor results chronic pain control. He understands wished to proceed patient will return to the clinic in approximately 2 weeks for follow-up was counseled as to return appointment activity level and side effects to be aware of. Patient continue with stretching strength exercises heat application and massage therapies as well as he is currently doing. Medication Injected: Med Injected: Patient sitting position under sterile prep and drape patient's thoracic paraspinous muscular lumbar paraspinous muscles and gluteus musculature was then injected at each trigger point region 11 cc of 0.25% bupivicaine total after negative aspiration each injection site a total of 40 mg Depo-Medrol. Patient tolerated procedure well had no complications. Condition at Discharge: Condition at Discharge: Condition at discharge stable patient tolerated procedure well had no complications. LEXI AUGUST MD Jan 09, 2020 08:23
== END | disposition home or self-care (01) ==
LOC: PNCL 07:47
PROVIDERS: ATTEND Anesthesiology
DX: M51.16 Intervertebral disc disorders with radiculopathy, lumbar region (principal); M47.816 Spondylosis without myelopathy or radiculopathy, lumbar region; M79.18 Myalgia, other site; M50.10 Cervical disc disorder with radiculopathy, unspecified cervical region; Z87.891 Personal history of nicotine dependence; Z88.0 Allergy status to penicillin; Z88.8 Allergy status to other drugs, medicaments and biological substances; Z72.89 Other problems related to lifestyle; Z79.899 Other long term (current) drug therapy
CPT/HCPCS: 20553; J1030; J3490

== ENCOUNTER → 2020-02-06 | Outpatient (CLI) | payer MEDICARE, OTHER ==
--- NOTE | 2020-02-06 08:30 | PDOC ---
Progress Note - Pain Clinic Date of Service: DOS: DATE: 02/06/20 TIME: : Diagnosis: Dx: Lumbar radiculopathy with lumbar degenerative disc disease lumbar spinal stenosis lumbar spondylosis Cervical radiculopathy with cervical degenerative disc disease Myofascial pain History or Present Illness: HPI: 84-year-old male returns follow-up status post trigger point injections as well as lumbar epidural steroid injections. Patient reports did very well with each of these the pain returning down the low back mid back upper back at times and into the bilateral gluteus worse on the right than the left. This is worse with standing for prolonged periods also sitting for prolonged periods greater than about 30 minutes each patient reports is a 9 on scale 10 is worse over the past week 7 on average 6 its least as a 7 today. Patient ports becoming more constant aching and dull in the low back itself without significant radiation to the lower extremities he has had a few occasions where his rating to his right leg but only a few. Patient reports otherwise did very well after trigger point injections January 08 with 100% improvement for several weeks. Patient reports he is still staying very active he has an competitive ballroom dancing as well as competitive bowling and is still doing these activities with reasonable comfort. Patient reports the pain is waking her from sleep about once every 6 hours and is getting worse over the past few days. Patient reports pain is aching and dull becoming more constant reports no new motor or sensory deficits no new bowel or bladder incontinence. Physical Exam: VS: Blood pressure is 129/69 pulse 59 respirations 16 temperature is 97.3 F weight is 198 pounds PE: PHYSICAL EXAMINATION: GENERAL: The patient is awake, alert, oriented, appropriate, very pleasant demeanor HEENT: Shows normocephalic, atraumatic. Extraocular movements are intact and symmetrical. NECK: Shows anterior throat supple without palpable lymphadenopathy noted. Swallow reflex symmetrical. CHEST: Shows normal on inspection. Breath sounds are clear bilaterally, no rales rhonchi or wheezes. HEART: Shows S1, S2 clear. No murmurs auscultated. ABDOMEN: Soft, nontender, nondistended, obese. No palpable organomegaly is noted. No rebound or guarding demonstrated. BACK: Shows spine grossly in the midline. Normal-appearing cervical lordotic curvature. There is slightly increased thoracic kyphosis, some minor flattening of the lumbar lordotic curvature. Lumbar paraspinous muscles show symmetrical on inspection, on palpation shows some moderate tenderness diffusely throughout the upper, middle and lower distribution of the paraspinous muscles with moderate tenderness throughout the lower thoracic middle and upper lumbar as well as the lower lumbar with very firm ropelike musculature consistent with trigger point areas of musculature, also in the superior medial aspect of the gluteus musculature greater on the right than the left very firm very tender musculature areas of trigger points bilaterally, But without radiation of pain. The patient has good rotational motion of the lumbar spine, both laterally as well as extension and flexion without significant difficulty. No tenderness over the spinous processes, sacrum or sacroiliac regions. EXTREMITIES: Lower extremities show deep tendon reflexes 2+ in the patellar and tendo calcaneus tendons. Motor exam is 5 on a scale of 5 with right dorsiflexion, extension, quadriceps and hamstring flexion and 5/5 on the left. Peripheral pulses are 1+ posterior tibial. No peripheral edema is noted bilaterally. Lower extremities are warm and dry to touch, equal in color and appearance. SKIN: Shows warm and dry, good turgor. No edema. No sores, rashes or bruising throughout. Procedure: Procedure: Options were discussed with the patient. Patient chart was reviewed his current medication regimen updated current review of systems updated today as well. We will proceed with trigger point injections of the identified musculature. Risks were discussed including but not limited to bleeding infection possibility of intravascular injection sequelae spread to local anesthetic and numbness pneumothorax side effects of steroid medication as well as poor results regarding pain control. Patient understands wished to proceed. Patient return to clinic in approximately 2 weeks for follow-up was counseled as to return appointment activity level and side effects to be aware of. Medication Injected: Med Injected: Under sterile prep and drape patient in sitting position the thoracic lumbar and gluteus musculature were sterilely prepped and draped in usual fashion and as trigger points identified with palpation injected with 25-gauge needle using to mainor of 10 cc of 0.25% bupivacaine and a total of 40 mg Depo-Medrol , after negative aspiration at each injection site. Patient tolerated the procedure well had no complications. Condition at Discharge: Condition at Discharge: Condition at discharge stable patient tolerated procedure well had no complications. LEXI AUGUST MD Feb 06, 2020 08:30
== END ==
LOC: PNCL 08:05
PROVIDERS: ATTEND Anesthesiology
DX: M51.16 Intervertebral disc disorders with radiculopathy, lumbar region (principal); M50.10 Cervical disc disorder with radiculopathy, unspecified cervical region; M79.18 Myalgia, other site; M48.061 Spinal stenosis, lumbar region without neurogenic claudication; M47.896 Other spondylosis, lumbar region; Z88.0 Allergy status to penicillin; Z88.8 Allergy status to other drugs, medicaments and biological substances; Z87.891 Personal history of nicotine dependence; Z79.899 Other long term (current) drug therapy
CPT/HCPCS: 20553; J1030; J3490

== ENCOUNTER → 2020-02-27 | Outpatient (CLI) | payer MEDICARE, OTHER ==
[~2020-02-27] MED LIST changes: -BUPIVACAINE MPF 0.25% 10 ML VIAL. ONE; +IOHEXOL 180 MG/ML 10 ML VIAL. ONE; +methylPREDNISolone ACETATE 80 MG/ML VIAL. ONE
--- NOTE | 2020-02-27 08:49 | PDOC ---
Progress Note - Pain Clinic Date of Service: DOS: DATE: 02/27/20 TIME: 08:44 Diagnosis: Dx: Lumbar radiculopathy with lumbar degenerative disc disease lumbar spinal stenosis and lumbar spondylosis Cervical radiculopathy cervical degenerative disc disease Myofascial pain History or Present Illness: HPI: 84-year-old male returns follow-up status post lumbar epidural steroid injection as well as trigger point injections on his last visit. Patient ports trigger point helped temporarily but his main pain now is in the low back and the bilateral lower extremities posterior gluteus posterior thighs and some in the calves with walking and standing slightly worse on the right than the left but present bilaterally. Patient reports is an 8 on scale 10 is worse over the past week 5 on average for its least is a 5 today. Patient ports no loss of motor function no bowel or bladder incontinence generally has not awakened from sleep and has started to over the last week or so. 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 Physical Exam: VS: Blood pressure is 140/69 pulse 57 respirations 16 temperature 97.6 3 Fahrenheit weight is 199 pounds PE: PHYSICAL EXAMINATION: GENERAL: The patient is awake, alert, oriented, appropriate, very pleasant de meanor HEENT: Shows normocephalic, atraumatic. Extraocular movements are intact and symmetrical. Oral cavity: Mucous membranes moist and pink. Dentition is intact. NECK: Shows anterior throat supple without palpable lymphadenopathy noted. Swallow reflex symmetrical. CHEST: Shows normal on inspection. Breath sounds are clear bilaterally, no rales rhonchi or wheezes. HEART: Shows S1, S2 clear. No murmurs auscultated. ABDOMEN: Soft, nontender, nondistended, obese. No palpable organomegaly is noted. No rebound or guarding demonstrated. BACK: Shows spine in the midline. Normal-appearing cervical lordotic curvature. There is slightly increased thoracic kyphosis, some minor flattening of the lumbar lordotic curvature. Lumbar paraspinous muscles show symmetrical on inspection, on palpation shows some moderate tenderness diffusely throughout the upper, middle and lower distribution of the paraspinous muscles bilaterally without specific trigger points, without radiation of pain. The patient has good rotational motion of the lumbar spine, both laterally as well as extension and flexion without significant difficulty. No tenderness over the spinous processes, sacrum or sacroiliac regions. EXTREMITIES: Lower extremities show deep tendon reflexes 2+ in the patellar and tendo calcaneus tendons. Motor exam is 5 on a scale of 5 with right dorsiflexion, extension, quadriceps and hamstring flexion and 5/5 on the left. Peripheral pulses are 1+ posterior tibial. No peripheral edema is noted bilaterally. Lower extremities are warm and dry to touch, equal in color and appearance. SKIN: Shows warm and dry, good turgor. No edema. No sores, rashes or bruising throughout. Procedure: Procedure: Options were discussed with the patient. Patient chart was reviewed his his current medication regimen updated current review of systems updated today as well. We will proceed with a third in the series lumbar epidural steroid injection today with fluoroscopic guidance. Risks were discussed including but not limited to: Bleeding, infection, possibility of epidural hematoma and subsequent neurological compromise, dural puncture, headaches, spinal cord and/or nerve damage, side effects of steroid medication, and poor results regarding pain control. Patient understands wished to proceed. Patient return to clinic in approximate 2 weeks for follow-up was counseled as to return appointment activity level and side effects to be aware of. Medication Injected: Med Injected: Procedure is lumbar epidural steroid injection under local anesthetic using sterile prep and drape at the L5-S1 level using C-arm fluoroscopic guidance in both AP and lateral views medications injected is 120 mg Depo-Medrol + 10 mL preservative-free normal saline and 2 mL contrast- condition at discharge is stable patient tolerated procedure well had no complications. Condition at Discharge: Condition at Discharge: Condition at discharge is stable, patient tolerated procedure well had no complications. LEXI AUGUST MD Feb 27, 2020 08:49
== END | disposition home or self-care (01) ==
LOC: PNCL 07:46
PROVIDERS: ATTEND Anesthesiology
DX: M51.16 Intervertebral disc disorders with radiculopathy, lumbar region (principal); M48.061 Spinal stenosis, lumbar region without neurogenic claudication; M47.26 Other spondylosis with radiculopathy, lumbar region; M50.10 Cervical disc disorder with radiculopathy, unspecified cervical region; M79.18 Myalgia, other site; E78.00 Pure hypercholesterolemia, unspecified; K21.9 Gastro-esophageal reflux disease without esophagitis; M19.90 Unspecified osteoarthritis, unspecified site; Z85.828 Personal history of other malignant neoplasm of skin; Z79.899 Other long term (current) drug therapy; Z72.89 Other problems related to lifestyle; Z98.890 Other specified postprocedural states; Z87.891 Personal history of nicotine dependence; Z88.0 Allergy status to penicillin; Z88.5 Allergy status to narcotic agent; Z88.8 Allergy status to other drugs, medicaments and biological substances
CPT/HCPCS: 62323; J1030; J1040; Q9965

== ENCOUNTER → 2020-04-23 | Outpatient (CLI) | payer MEDICARE, OTHER ==
--- NOTE | 2020-04-23 08:27 | PDOC ---
Progress Note - Pain Clinic Date of Service: DOS: DATE: 04/23/20 TIME: 08:22 Diagnosis: Dx: Lumbar radiculopathy with lumbar degenerative disease lumbar spinal stenosis and lumbar spondylosis Cervical radiculopathy with cervical degenerative disc disease Myofascial pain History or Present Illness: HPI: 84-year-old male returns for follow-up status post lumbar epidural steroid injection was finished 3 most recently February 27, 2020. Patient reports did very well about 90% improvement for the first month to month and a half and the pain began to return over the past few weeks in the low back in the bilateral lower extremities slightly more on the left than the right. Patient reports is a 7 on scale of 10 over the last week at its worst 6 on average for its least is a 5 today patient ports aching and dull in the low back rating the bilateral lower extremities again slightly more on the left than the right mostly in the posterior gluteus posterior lateral thigh posterior calves worse with walking standing changing positions. Patient continues to stay very active with competitive ballroom dancing as well as competitive bowling and maintains this currently. Patient reports has been increasing distance walking doing household activities travel with greater ease and comfort doing recreational activities much greater ease as well patient reports generally does not awaken her from sleep at night. Patient reports no new motor or sensory deficits no bowel or bladder incontinence or points. Physical Exam: VS: Blood pressure is 142/72 pulse 57 respirations are 18 temperature 97.6 F weight is 201 pounds PE: PHYSICAL EXAMINATION: GENERAL: The patient is awake, alert, oriented, appropriate, very pleasant demeanor HEENT: Shows normocephalic, atraumatic. Extraocular movements are intact and symmetrical. Oral cavity: Mucous membranes moist and pink. Dentition is intact. NECK: Shows anterior throat supple without palpable lymphadenopathy noted. Swallow reflex symmetrical. CHEST: Shows normal on inspection. Breath sounds are clear bilaterally, no rales or rhonchi. HEART: Shows S1, S2 clear. No murmurs auscultated. ABDOMEN: Soft, nontender, nondistended, obese. No palpable organomegaly is noted. No rebound or guarding demonstrated. BACK: Shows spine grossly in the midline. Normal-appearing cervical lordotic curvature. There is slightly increased thoracic kyphosis, some minor flattening of the lumbar lordotic curvature. Lumbar paraspinous muscles show symmetrical on inspection, on palpation shows some moderate tenderness diffusely throughout the upper, middle and lower distribution of the paraspinous muscles, but without specific trigger points, without radiation of pain. The patient has good rotational motion of the lumbar spine, both laterally as well as extension and flexion without significant difficulty. No tenderness over the spinous processes, sacrum or sacroiliac regions. EXTREMITIES: Lower extremities show deep tendon reflexes 2+ in the patellar and tendo calcaneus tendons. Motor exam is 5 on a scale of 5 with right dorsiflexion, extension, quadriceps and hamstring flexion and 5/5 on the left. Peripheral pulses are 1+ posterior tibial. No peripheral edema is noted bilaterally. Lower extremities are warm and dry to touch, equal in color and appearance. SKIN: Shows warm and dry, good turgor. No edema. No sores, rashes or bruising throughout. Procedure: Procedure: Options were discussed with the patient. Patient chart reviews his current medication regimen updated current review of systems updated today as well. We will proceed with a first in the series lumbar epidural steroid injection today with fluoroscopic guidance. Risks were discussed including but not limited to: Bleeding, infection, possibility of epidural hematoma and subsequent neurological compromise, dural puncture, headaches, spinal cord and/or nerve damage, side effects of steroid medication, and poor results regarding pain control. Patient understands wished to proceed. Patient will return to the clinic in approximate 2 weeks for follow-up was counseled as to return appointment activity level and side effects to be aware of. Medication Injected: Med Injected: Procedure is lumbar epidural steroid injection under local anesthetic using sterile prep and drape at the L5-S1 level using C-arm fluoroscopic guidance in both AP and lateral views medications injected is 120 mg Depo-Medrol + 10 mL preservative-free normal saline and 2 mL contrast- condition at discharge is stable patient tolerated procedure well had no complications. Condition at Discharge: Condition at Discharge: Condition at discharge stable, patient tolerated procedure well and had no complications. LEXI AUGUST MD Apr 23, 2020 08:27
== END | disposition home or self-care (01) ==
LOC: PNCL 07:40
PROVIDERS: ATTEND Anesthesiology
DX: M51.16 Intervertebral disc disorders with radiculopathy, lumbar region (principal); M48.061 Spinal stenosis, lumbar region without neurogenic claudication; M47.26 Other spondylosis with radiculopathy, lumbar region; M50.10 Cervical disc disorder with radiculopathy, unspecified cervical region; M79.18 Myalgia, other site; E78.00 Pure hypercholesterolemia, unspecified; K21.9 Gastro-esophageal reflux disease without esophagitis; M19.90 Unspecified osteoarthritis, unspecified site; Z85.828 Personal history of other malignant neoplasm of skin; Z79.899 Other long term (current) drug therapy; Z98.890 Other specified postprocedural states; Z87.891 Personal history of nicotine dependence; Z72.89 Other problems related to lifestyle; Z88.0 Allergy status to penicillin; Z88.1 Allergy status to other antibiotic agents; Z88.8 Allergy status to other drugs, medicaments and biological substances
CPT/HCPCS: 62323; J1030; J1040; Q9965

== ENCOUNTER → 2020-06-18 | Outpatient (CLI) | payer MEDICARE, OTHER ==
--- NOTE | 2020-06-18 08:36 | PDOC ---
Progress Note - Pain Clinic Date of Service: DOS: DATE: 06/18/20 TIME: 08:33 Diagnosis: Dx: Lumbar radiculopathy with lumbar degenerative disc disease lumbar spinal stenosis and lumbar spondylosis Cervical radiculopathy with cervical degenerative disc disease Myofascial pain History or Present Illness: HPI: 84-year-old male returns follow-up status post lumbar epidural steroid injection x1. Patient reports about 1% improvement until the last week he dropped a bowling ball on his left foot is been walking with a limp and this has been affecting his back with increased pain in the low back especially on the left side. Patient reports otherwise doing very well increase distance walking doing household activities competitive dancing also competitive bowling with very good to ease and comfort. Patient reports she still sleeping well at night does not awaken him from sleep rates the pain is a 5 on a scale 10 is worse over the past week for an average of 4 days least is a 4 today patient reports that sharp and dull alternating the low back itself with some radiating into the left lower extremity mostly in the posterior gluteus and thigh but only occasionally. Patient reports no new motor or sensory deficits no new bowel or bladder incontinence or other complaints. Physical Exam: VS: Blood pressure is 112/64 pulse 60 respirations 18 temperature 97.6 F weight is 200 pounds PE: PHYSICAL EXAMINATION: GENERAL: The patient is awake, alert, oriented, appropriate, very pleasant dem eanor HEENT: Shows normocephalic, atraumatic. Extraocular movements are intact and symmetrical. NECK: Shows anterior throat supple without palpable lymphadenopathy noted. Swallow reflex symmetrical. CHEST: Shows normal on inspection. Breath sounds are clear bilaterally, no rales rhonchi wheezes auscultated. HEART: Shows S1, S2 clear. No murmurs auscultated. ABDOMEN: Soft, nontender, nondistended, obese. No palpable organomegaly is noted. No rebound or guarding demonstrated. BACK: Shows spine grossly in the midline. Normal-appearing cervical lordotic curvature. There is slightly increased thoracic kyphosis, some minor flattening of the lumbar lordotic curvature. Lumbar paraspinous muscles show symmetrical on inspection, on palpation shows some moderate tenderness diffusely throughout the upper, middle and lower distribution of the paraspinous muscles, but without specific trigger points, without radiation of pain. The patient has good rotational motion of the lumbar spine, both laterally as well as extension and flexion without significant difficulty. EXTREMITIES: Lower extremities show deep tendon reflexes 2+ in the patellar and tendo calcaneus tendons. Motor exam is 5 on a scale of 5 with right dorsiflexion, extension, quadriceps and hamstring flexion and 5/5 on the left. Peripheral pulses are 1+ posterior tibial. No peripheral edema is noted bilaterally. Lower extremities are warm and dry to touch, equal in color and appearance. SKIN: Shows warm and dry, good turgor. No edema. No sores, rashes or bruising throughout. Procedure: Procedure: Options were discussed with the patient. Patient chart reviews his current medication regimen updated current review of systems updated today as well. We will proceed with a second in the series lumbar epidural steroid injection with fluoroscopic guidance. Risks were discussed including but not limited to: Bleeding, infection, possibility of epidural hematoma and subsequent neurological compromise, dural puncture, headaches, spinal cord and/or nerve damage, side effects of steroid medication, and poor results regarding pain control. Patient understands and wished to proceed. Patient will return to the clinic in approximately 2 weeks for follow-up, was counseled as to return appointment activity level and side effects to be aware of. Medication Injected: Med Injected: Procedure is lumbar epidural steroid injection under local anesthetic using sterile prep and drape at the L5-S1 level using C-arm fluoroscopic guidance in both AP and lateral views medications injected is 120 mg Depo-Medrol + 10 mL preservative-free normal saline and 2 mL contrast- condition at discharge is stable patient tolerated procedure well had no complications. Condition at Discharge: Condition at Discharge: Condition at discharge stable, patient alert procedure well had no complications. LEXI AUGUST MD Jun 18, 2020 08:36
--- NOTE | 2020-06-18 08:37 | PDOC4 ---
PROCEDURE Procedure Patient was consented for lumbar epidural steroid injection. Risks were dis cussed including but not limited to: Bleeding, infection, possibility of epidural hematoma and subsequent neurological compromise, dural puncture, headaches, spinal cord and/or nerve damage, side effects of steroid medication, and poor results regarding pain control. Patient understands and wished to proceed. Procedure is lumbar epidural steroid injection under local anesthetic using sterile prep and drape at the L5-S1 level using C-arm fluoroscopic guidance in both AP and lateral views medications injected is 120 mg Depo-Medrol + 10 mL preservative-free normal saline and 2 mL contrast- condition at discharge is stable patient tolerated procedure well had no complications. LEXI AUGUST MD Jun 18, 2020 08:37
== END | disposition home or self-care (01) ==
LOC: PNCL 07:52
PROVIDERS: ATTEND Anesthesiology
DX: M51.16 Intervertebral disc disorders with radiculopathy, lumbar region (principal); M47.26 Other spondylosis with radiculopathy, lumbar region; M48.061 Spinal stenosis, lumbar region without neurogenic claudication; M50.10 Cervical disc disorder with radiculopathy, unspecified cervical region; M79.18 Myalgia, other site; E78.00 Pure hypercholesterolemia, unspecified; K21.9 Gastro-esophageal reflux disease without esophagitis; M19.90 Unspecified osteoarthritis, unspecified site; Z85.828 Personal history of other malignant neoplasm of skin; Z79.899 Other long term (current) drug therapy; Z87.891 Personal history of nicotine dependence; Z98.890 Other specified postprocedural states; Z88.8 Allergy status to other drugs, medicaments and biological substances; Z72.89 Other problems related to lifestyle; Z88.0 Allergy status to penicillin
CPT/HCPCS: 62323; J1030; J1040; Q9965

== ENCOUNTER → 2020-08-09 | Outpatient (CLI) | payer MEDICARE, OTHER ==
[~2020-08-09] MED LIST changes: -IOHEXOL 180 MG/ML 10 ML VIAL. ONE; -methylPREDNISolone ACETATE 40 MG/ML VIAL. ONE; -methylPREDNISolone ACETATE 80 MG/ML VIAL. ONE
--- NOTE | 2020-08-09 11:59 | RAD ---
EXAM: Bilateral lower extremity venous Doppler sonogram. HISTORY: Pain and swelling. TECHNIQUE: Alexandra scale and color Doppler sonographic evaluation of the bilateral lower extremity veins with spectral waveform analysis was performed. FINDINGS: There is normal color flow, normal compressibility and there are normal spectral waveforms in the common femoral, superficial femoral, popliteal, posterior tibial and greater saphenous veins. IMPRESSION: No Doppler evidence of lower extremity deep venous thrombosis. Electronically signed by: Shellie Burroughs MD (08/09/2020 11:56 AM) [id number]
--- NOTE | 2020-08-09 12:00 | RAD ---
EXAM: Chest, 2 views. HISTORY: Chest pain. COMPARISON: None. FINDINGS: 2 views of the chest are obtained. There is no infiltrate, pleural effusion or pneumothorax . The heart is normal in size. IMPRESSION: No acute pulmonary finding. Electronically signed by: Shellie Burroughs MD (08/09/2020 11:57 AM) [id number]
== END ==
LOC: US 11:12
PROVIDERS: ATTEND Internal Medicine
DX: R60.0 Localized edema (principal); R07.9 Chest pain, unspecified
CPT/HCPCS: 71046; 93970

== ENCOUNTER → 2020-08-13 | Outpatient (CLI) | payer MEDICARE, OTHER ==
[~2020-08-13] MED LIST changes: +IOHEXOL 180 MG/ML 10 ML VIAL. ONE; +methylPREDNISolone ACETATE 40 MG/ML VIAL. ONE; +methylPREDNISolone ACETATE 80 MG/ML VIAL. ONE
--- NOTE | 2020-08-13 08:24 | PDOC ---
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 Patient describes an off-and-on dull and aching in a radiating and shooting into the legs patient reports generally is not awaken him sleep at night but has over the last few days if he lays on his right side. Patient reports no new motor or sensory deficits no new bowel or bladder incontinence or other complaints. Physical Exam: VS: Blood pressure is 113/66 pulse 60 respirations 18 temperature 97.4 F weight is 199 pounds PE: PHYSICAL EXAMINATION: GENERAL: The patient is awake, alert, oriented, appropriate, very pleasant demeanor HEENT: Shows normocephalic, atraumatic. Extraocular movements are intact and symmetrical. NECK: Shows anterior throat supple without palpable lymphadenopathy noted. Swallow reflex symmetrical. CHEST: Shows normal on inspection. Breath sounds are clear bilaterally, no rales bilaterally. HEART: Shows S1, S2 clear. No murmurs auscultated. ABDOMEN: Soft, nontender, nondistended, obese. No palpable organomegaly is noted. No rebound or guarding demonstrated. BACK: Shows spine grossly in the midline. Normal-appearing cervical lordotic curvature. There is slightly increased thoracic kyphosis, some minor flattening of the lumbar lordotic curvature. Lumbar paraspinous muscles show symmetrical on inspection, on palpation shows some moderate tenderness diffusely throughout the upper, middle and lower distribution of the paraspinous muscles, but without specific trigger points, without radiation of pain. The patient has good rotational motion of the lumbar spine, both laterally as well as extension and flexion without significant difficulty. EXTREMITIES: Lower extremities show deep tendon reflexes 2+ in the patellar and tendo calcaneus tendons. Motor exam is 5 on a scale of 5 with right dorsiflexion, extension, quadriceps and hamstring flexion and 5/5 on the left. Peripheral pulses are 1+ posterior tibial. No peripheral edema is noted bilaterally. Lower extremities are warm and dry. SKIN: Shows warm and dry, good turgor. No edema. No sores, rashes or bruising throughout. Procedure: Procedure: Options were discussed with the patient. Patient chart reviews his current medication regimen updated current review of systems updated today as well. We will proceed with a lumbar epidural steroid injection today as the first in the series with fluoroscopic guidance. Risks were discussed including but not limited to: Bleeding, infection, possibility of epidural hematoma and subsequent neurological compromise, dural puncture, headaches, spinal cord and/or nerve damage, side effects of steroid medication, and poor results regarding pain control. Patient understands and wished to proceed. Patient will return to clinic in approximately 2 weeks for follow-up was counseled as return appointment activity level and side effects to be aware of. Medication Injected: Med Injected: Procedure is lumbar epidural steroid injection under local anesthetic using sterile prep and drape at the L5-S1 level using C-arm fluoroscopic guidance in both AP and lateral views medications injected is 120 mg Depo-Medrol + 10 mL preservative-free normal saline and 2 mL contrast- condition at discharge is stable patient tolerated procedure well had no complications. Condition at Discharge: Condition at Discharge: Condition at discharge stable, patient tolerated procedure well and had no compl ications. LEXI AUGUST MD Aug 13, 2020 08:24
--- NOTE | 2020-08-13 08:25 | PDOC4 ---
PROCEDURE Procedure Patient was consented for lumbar epidural steroid injection. Risks were dis cussed including but not limited to: Bleeding, infection, possibility of epidural hematoma and subsequent neurological compromise, dural puncture, headaches, spinal cord and/or nerve damage, side effects of steroid medication, and poor results regarding pain control. Patient understands and wished to proceed. Procedure is lumbar epidural steroid injection under local anesthetic using sterile prep and drape at the L5-S1 level using C-arm fluoroscopic guidance in both AP and lateral views medications injected is 120 mg Depo-Medrol + 10 mL preservative-free normal saline and 2 mL contrast- condition at discharge is stable patient tolerated procedure well had no complications. LEXI AUGUST MD Aug 13, 2020 08:25
== END | disposition home or self-care (01) ==
LOC: PNCL 07:50
PROVIDERS: ATTEND Anesthesiology
DX: M51.16 Intervertebral disc disorders with radiculopathy, lumbar region (principal); M48.061 Spinal stenosis, lumbar region without neurogenic claudication; M47.26 Other spondylosis with radiculopathy, lumbar region; M50.10 Cervical disc disorder with radiculopathy, unspecified cervical region; M79.18 Myalgia, other site; E78.00 Pure hypercholesterolemia, unspecified; K21.9 Gastro-esophageal reflux disease without esophagitis; M19.90 Unspecified osteoarthritis, unspecified site; Z87.891 Personal history of nicotine dependence; Z79.899 Other long term (current) drug therapy; Z72.89 Other problems related to lifestyle; Z88.0 Allergy status to penicillin; Z88.1 Allergy status to other antibiotic agents; Z88.8 Allergy status to other drugs, medicaments and biological substances
CPT/HCPCS: 62323; J1030; J1040; Q9965

== ENCOUNTER → 2020-09-03 | Outpatient (CLI) | payer MEDICARE, OTHER ==
[~2020-09-03] MED LIST changes: -IOHEXOL 180 MG/ML 10 ML VIAL. ONE; -methylPREDNISolone ACETATE 40 MG/ML VIAL. ONE; -methylPREDNISolone ACETATE 80 MG/ML VIAL. ONE
--- NOTE | 2020-09-03 13:14 | KCIC ---
EXAM: Chest CT without intravenous contrast. HISTORY: Pleuritic chest pain. TECHNIQUE: Computed tomographic images of the chest were obtained without contrast. Multiplanar refor matting was performed. *One or more of the following individualized dose reduction techniques were utilized for this examina tion: 1. Automated exposure control. 2. Adjustment of the mA and/or kV according to patient size. 3. Use of iterative reconstruction technique. COMPARISON: None. FINDINGS: The heart is normal in size. There is calcified atherosclerotic plaque involving the rodarte ry arteries. There is calcification of the aortic valve. No pathologically enlarged mediastinal or hi lar lymph node is seen. There is no pneumothorax. There is no pleural effusion. There is no suspicious pulmonary nodule. Ther e is no rib fracture. There is no vertebral fracture. There is multilevel thoracic endplate remodelin g and Schmorl's node formation. There are small hypodense lesions within the left hepatic lobe, the attenuation of which favors cysts . There is mild gastric wall thickening likely due to relative under distention. IMPRESSION: 1. No acute thoracic finding. 2. Calcified atherosclerotic plaque involving the coronary arteries and aortic valve calcification. 3. Incidental small simple appearing hepatic cysts. Electronically signed by: Shellie Burroughs MD (09/03/2020 1:12 PM) [id number]
== END ==
LOC: KCIC CT 10:18
PROVIDERS: ATTEND Internal Medicine
DX: R07.81 Pleurodynia (principal); K76.89 Other specified diseases of liver; I25.10 Atherosclerotic heart disease of native coronary artery without angina pectoris
CPT/HCPCS: 71250

== ENCOUNTER → 2020-10-01 | Outpatient (CLI) | payer MEDICARE, OTHER ==
--- NOTE | 2020-10-01 17:56 | CARD ---
MR#: [id number] Date of Study: 10/01/2020 Ordering Physician: HENOK DENNEY, Referring Physician: HENOK DENNEY, Tech: Carla Briones [facility] APPROVED REPORT EXAM: Two-dimensional and M-mode echocardiogram with Doppler and color Doppler. Other Information Quality : AverageHR: 57bpm INDICATION Dyspnea Bradycardia RISK FACTORS Hyperlipidemia 2D DIMENSIONS RVDd4.1 (2.9-3.5cm)Left Atrium(2D)3.9 (1.6-4.0cm) IVSd1.1 (0.7-1.1cm)Aortic Root(2D)3.7 (2.0-3.7cm) LVDd5.6 (3.9-5.9cm)LVOT Diameter2.1 (1.8-2.4cm) PWd1.0 (0.7-1.1cm)LVDs3.3 (2.5-4.0cm) FS (%) 40.5 %SV108.0 ml Aortic Valve AoV Peak Alan.172.0cm/sAoV VTI40.9cm AO Peak GR.11.8mmHgLVOT Peak Alan.97.8cm/s LVOT VTI 23.53cmAO Mean GR.7mmHg WANDER (VMAX)1.87jj6PQE (VTI)2.08cm2 Mitral Valve MV E Pqlmyyli29.3cm/sMV DECEL ERDL994qv MV A Gvdahryh84.2cm/sMV WGJ61wq E/A Ratio1.3MVA (PHT)2.78cm2 TDI E/Lateral E'6.0E/Medial E'9.9 Pulmonary Valve PV Peak Uvbynwag57.3cm/sPV Peak Grad.3mmHg Tricuspid Valve TR P. Tsckupij437ic/sRAP DYNRHBIB8kxSu TR Peak Gr.43keHpXMGT75zpNh Pulmonary Vein S1 Tmmqnkcz83.9cm/sD2 Pfmdpwwe64.3cm/s PVa rwrckeot654ntdl LEFT VENTRICLE The left ventricle is normal size. There is mild concentric left ventricular hypertrophy. The left ve ntricular systolic function is normal. The Ejection Fraction is 50-55%. There is normal LV segmental wall motion. The left ventricular diastolic function and filling is normal for age. RIGHT VENTRICLE The right ventricle is mildly dilated. There is normal right ventricular wall thickness. The right ve ntricular systolic function is normal. ATRIA The left atrium is borderline dilated. The right atrium size is normal. The interatrial septum is int act with no evidence for an atrial septal defect or patent foramen ovale as noted on 2-D or Doppler i maging. AORTIC VALVE The aortic valve is normal in structure and function. Doppler and Color Flow revealed trace aortic re gurgitation. There is no significant aortic valvular stenosis. Calculated aortic valve area is 2.10 c m2 with maximum pressure gradient of 14 mmHg and mean pressure gradient of 8 mmHg. MITRAL VALVE The mitral valve is normal in structure and function. There is no evidence of mitral valve prolapse. There is no mitral valve stenosis. Doppler and Color-flow revealed trace mitral regurgitation. TRICUSPID VALVE The tricuspid valve is normal in structure and function. Doppler and Color Flow revealed trace tricus pid regurgitation with an estimated PAP of 32 mmHg. There is no tricuspid valve stenosis. PULMONIC VALVE The pulmonic valve is not well visualized. Doppler and Color Flow revealed trace to mild pulmonic marian vular regurgitation. GREAT VESSELS The aortic root is normal in size. The IVC is dilated. PERICARDIAL EFFUSION There is no evidence of significant pericardial effusion. Critical Notification Critical Value: No <Conclusion> The left ventricle is normal size. The left ventricular systolic function is normal. The Ejection Fraction is 50-55%. There is mild concentric left ventricular hypertrophy. Doppler and Color Flow revealed trace aortic regurgitation. There is no significant aortic valvular stenosis. Doppler and Color-flow revealed trace mitral regurgitation. Doppler and Color Flow revealed trace tricuspid regurgitation with an estimated PAP of 32 mmHg. Signed by : Surjit Valadez MD Electronically Approved : 10/01/2020 17:56:17
== END ==
LOC: ECHO 09:32
PROVIDERS: ATTEND Internal Medicine
DX: I37.1 Nonrheumatic pulmonary valve insufficiency (principal); I51.7 Cardiomegaly
CPT/HCPCS: 93306

== ENCOUNTER → 2020-10-08 | Outpatient (CLI) | payer MEDICARE, OTHER ==
[~2020-10-08] MED LIST changes: +CLOP75TA PO; +METH4TAB2 PO
--- NOTE | 2020-10-08 08:49 | PDOC ---
Progress Note - Pain Clinic Date of Service: DOS: DATE: 10/08/20 TIME: 08:46 Diagnosis: Dx: Lumbar radiculopathy with lumbar degenerative disease and lumbar spinal stenosis with lumbar spondylosis Cervical radiculopathy with cervical degenerative disc disease Myofascial pain History or Present Illness: HPI: 85-year-old male returns for follow-up status post lumbar epidural steroid injection x1 August 13, 2020 patient reports he did very well with near 100% improvement in the low back pain and bilateral lower extremities patient ports he still having some but is beginning to return in the low back more noticeable with activity. Patient reports that he had some pain in his legs and his primary care physician has placed him on Plavix about 3 weeks ago he since seen a nondestructive tester as he was having some shortness of breath and is undergoing work- up at this time but has his testing scheduled for November. Patient reports his pain in the low back and legs is a 5 on a scale of 10 at its worst 3 on average 3 its least is a 3 today patient reports she is generally getting around better is been increase activity walking doing household activities still bowling c ompetitively and ballroom dancing competitively patient reports does not awaken from sleep at night pain is in the low back into the bilateral lower extremities posterior gluteus posterior thighs and calves intermittent intensity. Patient reports is not certain from sleep describes a dull ache with some shooting pain that can be more constant with activity. Patient reports no new motor or sensory deficits no new bowel or bladder incontinence or other complaints. Physical Exam: VS: Blood pressure is 123/77 pulse 49 respiration 16 temperature 97.6 F weight is 206 pounds PE: PHYSICAL EXAMINATION: GENERAL: The patient is awake, alert, oriented, appropriate, very pleasant demeanor HEENT: Shows normocephalic, atraumatic. Extraocular movements are intact and symmetrical. Oral cavity: Mucous membranes moist and pink. Dentition is intact. NECK: Shows anterior throat supple without palpable lymphadenopathy noted. Swallow reflex symmetrical. CHEST: Shows normal on inspection. Breath sounds are clear bilaterally, no rales rhonchi wheezes auscultated. HEART: Shows S1, S2 clear. No murmurs auscultated. ABDOMEN: Soft, nontender, nondistended, obese. No palpable organomegaly is noted. No rebound or guarding demonstrated. BACK: Shows spine grossly in the midline. Normal-appearing cervical lordotic curvature. There is slightly increased thoracic kyphosis, some minor flattening of the lumbar lordotic curvature. Lumbar paraspinous muscles show symmetrical on inspection, on palpation shows some moderate tenderness diffusely throughout the upper, middle and lower distribution of the paraspinous muscles, but without specific trigger points, without radiation of pain. The patient has good rotational motion of the lumbar spine, both laterally as well as extension and flexion without significant difficulty. EXTREMITIES: Lower extremities show deep tendon reflexes 2+ in the patellar and tendo calcaneus tendons. Motor exam is 5 on a scale of 5 with right dorsiflexion, extension, quadriceps and hamstring flexion and 5/5 on the left. Peripheral pulses are 1+ posterior tibial. No peripheral edema is noted bilaterally. Lower extremities are warm and dry. SKIN: Shows warm and dry, good turgor. No edema. No sores, rashes or bruising throughout. Procedure: Procedure: Options discussed with patient. Patient chart reviewed his current medication regimen updated current view systems updated today as well. We will check with patient's primary care physician who prescribed his Plavix to see if he may hold this for 7 days prior to potential lumbar epidural steroid injection. In the meantime patient will continue with stretching strength exercises activity as tolerated. We also prescribe Medrol Dosepak with instructions side effects beware of discussed with the medication. Patient will follow up pending review from primary physician regarding Plavix cessation. Medication Injected: Med Injected: None Condition at Discharge: Condition at Discharge: Condition at discharge is stable. LEXI AUGUST MD Oct 08, 2020 08:49
== END | disposition home or self-care (01) ==
LOC: PNCL 07:53
PROVIDERS: ATTEND Anesthesiology
DX: M51.16 Intervertebral disc disorders with radiculopathy, lumbar region (principal); M48.061 Spinal stenosis, lumbar region without neurogenic claudication; M47.26 Other spondylosis with radiculopathy, lumbar region; M50.10 Cervical disc disorder with radiculopathy, unspecified cervical region; M79.18 Myalgia, other site; E78.00 Pure hypercholesterolemia, unspecified; K21.9 Gastro-esophageal reflux disease without esophagitis; M19.90 Unspecified osteoarthritis, unspecified site; Z85.828 Personal history of other malignant neoplasm of skin; Z79.899 Other long term (current) drug therapy; Z98.890 Other specified postprocedural states; Z87.891 Personal history of nicotine dependence; Z72.89 Other problems related to lifestyle; Z88.0 Allergy status to penicillin; Z88.8 Allergy status to other drugs, medicaments and biological substances
CPT/HCPCS: 99212; G0463

== ENCOUNTER 2020-10-12 06:06 | Day surgery (SDC) | payer MEDICARE, OTHER ==
[~2020-10-12] VITALS: Ht 180.3 cm; Wt 91.0 kg
[~2020-10-12 06:06] MED LIST changes: +CLINDAMYCIN 900MG PREMIX 50 ML IV PRN; +HYDROmorphone 2 MG/ML VIAL IVP PRN; +IV RINGERS,LACTATED 1000ML 1,000 ML IV SCH; +MORPHINE SULFATE 2 MG/ML INJ. IVP PRN; +PROCHLORPERAZINE 10 MG/2 ML VIAL. IVP PRN; +fentaNYL PF VIAL 100 MCG/2 ML VIAL IVP PRN
[2020-10-12 06:29] VITALS: BP 146/70
[2020-10-12] MEDS ORDERED: LIDOCAINE 2% PF 5 ML VIAL. ONE (06:58)
[2020-10-12] MEDS ORDERED: PROPOFOL 10 MG/ML (20ML) VIAL. IV ONE (06:58)
[2020-10-12] MEDS ORDERED: KETOROLAC 30 MG/ML VIAL. ONE (07:02)
[2020-10-12] MEDS ORDERED: BUPIVACAINE MPF 0.25% 30 ML VIAL. ONE (07:05)
[2020-10-12] MEDS ORDERED: HYDR-2761 PO (07:26)
--- NOTE | 2020-10-12 07:28 | DISCH ---
DISCHARGE INSTRUCTIONS Condition on Discharge Condition on Discharge: Stable Activity After Discharge Activity Instructions for Disc: Other, see below (May do light grasping and fine motor use such as eating writing typing avoid a lot of pressure on the hand) Lifting Instructions after Dis: No heavy lifting, No pulling or pushing Weight Bearing Status after Di: Non weight bearing Diet after Discharge Diet after Discharge: Regular Wound Incision Care Wound/Incision Care: Ice to area for comfort, Do not change dressing (Keep dressing intact unless soiled) Contacting the DRArlene after DC Call your doctor for: Concerns you may have Follow-Up Follow up with: Dr. Mata or Bassem 10 days JULIA MATA MD Oct 12, 2020 07:28
[2020-10-12 08:05] VITALS: BP 121/83
[2020-10-12] MEDS ORDERED: HYDROcodone/APAP 5/325MG 1 TAB TABLET PO ONE (08:15)
--- NOTE | 2020-10-12 14:23 | PDOC4 ---
Operative Note Operative Note Date of surgery: 10/12/2020 Preoperative diagnosis: Left carpal tunnel syndrome Postoperative diagnosis: Same with moderate to severe median nerve compression Operative procedure: Left carpal tunnel release Surgeon: Adol[employer] Supervisor: Ever morgan Anesthesia: General Estimated blood loss: 5 cc Complications: None Operative indications: Please see my preoperative orthopedic clinic note for detailed operative indications and note that we covered that this procedure only takes pressure off the compressed nerve and relief may be incomplete as it is dependent on healing. There is also possibility of nerve or blood vessel damage infection medical or other anesthetic complications among others. He agrees to proceed with surgical evaluation and treatment Operative text: Patient was identified procedure verified patient placed in the supine position on the operating table. After adequate amounts of general anesthesia were administered the left upper extremity was prepped and draped in standard sterile fashion with an upper arm tourniquet. After timeout was performed patient procedure identified and verified the left upper extremity was exsanguinated by Esmarch bandage tourniquet inflated to 300 mmHg and a longitudinal incision was made just distal to the distal wrist crease dissection carried out down to the transverse carpal ligament which was divided under direct vision with scalpel and tenotomy scissors. Full release was verified both visually and palpably. Thorough irrigation carried out normal saline solution, incision was closed with nylon suture in vertical mattress fashion. Sterile soft dressings were applied patient was returned to recovery room stable condition having tolerated procedure well. Fingers were noted be warm pink on deflation of the tourniquet. Ever morgan was present for the procedure assisted in patient positioning prepping draping retraction closure and dressings JULIA GRUBER MD Oct 12, 2020 14:23
== END 2020-10-12 09:00 | disposition home or self-care (01) ==
LOC: SURG 06:06
PROVIDERS: ATTEND Orthopaedic Surgery
DX: G56.02 Carpal tunnel syndrome, left upper limb (principal); E78.00 Pure hypercholesterolemia, unspecified; K21.9 Gastro-esophageal reflux disease without esophagitis; M19.90 Unspecified osteoarthritis, unspecified site; Z85.828 Personal history of other malignant neoplasm of skin; Z87.891 Personal history of nicotine dependence; Z79.899 Other long term (current) drug therapy; Z98.890 Other specified postprocedural states; Z88.0 Allergy status to penicillin; Z88.8 Allergy status to other drugs, medicaments and biological substances
CPT/HCPCS: 64721; A4213; A4930; A6402; A6449; J1885; J2704; J3490; A4657; A6452

== ENCOUNTER → 2020-10-26 | Outpatient (CLI) | payer MEDICARE, OTHER ==
[2020-10-12 08:05] VITALS: BP 121/83
[~2020-10-26] MED LIST changes: -CLINDAMYCIN 900MG PREMIX 50 ML IV PRN; -HYDROmorphone 2 MG/ML VIAL IVP PRN; -IV RINGERS,LACTATED 1000ML 1,000 ML IV SCH; -MORPHINE SULFATE 2 MG/ML INJ. IVP PRN; -PROCHLORPERAZINE 10 MG/2 ML VIAL. IVP PRN; -fentaNYL PF VIAL 100 MCG/2 ML VIAL IVP PRN
--- NOTE | 2020-10-26 15:18 | RAD ---
EXAM: Carotid Doppler sonogram. HISTORY: Slurred speech. Atherosclerosis. TECHNIQUE: Alexandra scale and color Doppler sonographic evaluation of the neck with spectral waveform shantell lysis was performed and static images are submitted for review. FINDINGS: There is mild atherosclerotic plaque involving the carotid bifurcations. The peak systolic velocity within the right common carotid artery is 85 cm/sec. The peak systolic sheila ocity within the right internal carotid artery is 73 cm/sec and the end diastolic velocity within the right internal carotid artery is 22 cm/sec. The right ICA/CCA ratio is 0.92. The peak systolic velocity within the left common carotid artery is 108 cm/sec. The peak systolic sheila ocity within the left internal carotid artery is 58 cm/sec and the end diastolic velocity within the left internal carotid artery is 20 cm/sec. The left ICA/CCA ratio is 0.53. There is normal antegrade flow within both vertebral arteries. IMPRESSION: Doppler findings consistent with less than 50 percent stenosis involving the internal car otid arteries. PQRS Compliance Statement - Stenosis calculations for CT, MR and conventional angiography are based u jerson measurement of the distal ICA diameter in accordance with the NASCET methodology. Stenosis calcu lations for carotid ultrasound studies are derived from validated velocity criteria which are known t o correlate with the NASCET methodology. Electronically signed by: Shellie Burroughs MD (10/26/2020 3:15 PM) [id number]
== END ==
LOC: US 14:14
PROVIDERS: ATTEND Internal Medicine
DX: R47.81 Slurred speech (principal)
CPT/HCPCS: 93880

== ENCOUNTER → 2020-10-29 | Outpatient (CLI) | payer MEDICARE, OTHER ==
[2020-10-12 08:05] VITALS: BP 121/83
[~2020-10-29] MED LIST changes: +IOHEXOL 180 MG/ML 10 ML VIAL. ONE; +methylPREDNISolone ACETATE 40 MG/ML VIAL. ONE; +methylPREDNISolone ACETATE 80 MG/ML VIAL. ONE
--- NOTE | 2020-10-29 10:46 | PDOC ---
Progress Note - Pain Clinic Date of Service: DOS: DATE: 10/29/20 TIME: 10:42 Diagnosis: Dx: Lumbar radiculopathy with lumbar degenerative disease lumbar spinal stenosis with lumbar spondylosis Cervical radiculopathy cervical degenerative disease Myofascial pain History or Present Illness: HPI: 85-year-old male returns for follow-up status post lumbar epidural steroid injections most recently August 13, 2020. Patient reports he did very well near her percent improvement but was put on Plavix for unspecified reasons and is now off of the Plavix and has been off for about 3 weeks now. Patient reports he had been 100% improvement after the last injection the pain returning in the low back and bilateral lower extremities with the new finding of weakness in the left lower extremity with the pain. Patient reports he is not had this in the past and his left leg does feel like it is much weaker and fatigues more easily than the right one. Patient reports he is stopped bowling for the rest of the summer league secondary to recommendations from his orthopedic surgeon after carpal tunnel but also because he is worried about weakness in his left leg with bowling. Patient continues to do competitive ballroom dancing and stays very active. Patient reports the weakness is only minor but it is noticeable. Patient reports his pain is a 9 on scale 10 is worse over the past week 7 on average 7 its least is a 7 today. Patient scribes the pain is aching sharp and dull alternating in the low back and radiating in the bilateral lower extremiti es posterior gluteus posterior thighs posterior calves and feet. Patient reports no bowel or bladder incontinence or other complaints. Patient continues to take hydrocodone only infrequently. Physical Exam: VS: Blood pressure is 131/81 pulse 57 respirations 18 temperature 97.6 3 Fahrenheit height is 5 feet 11 inches weight 201 pounds PE: PHYSICAL EXAMINATION: GENERAL: The patient is awake, alert, oriented, appropriate, very pleasant in demeanor. HEENT: Shows normocephalic, atraumatic. Extraocular movements are intact and symmetrical. Oral cavity: Mucous membranes moist and pink. NECK: Shows anterior throat supple without palpable lymphadenopathy noted. Swallow reflex symmetrical. CHEST: Shows normal on inspection. Breath sounds are clear bilaterally, no rales rhonchi or wheeze auscultated. HEART: Shows S1, S2 clear. ABDOMEN: Soft, nontender, nondistended, obese. BACK: Shows spine grossly in the midline. Normal-appearing cervical lordotic curvature. There is slightly increased thoracic kyphosis, some minor flattening of the lumbar lordotic curvature. Lumbar paraspinous muscles show symmetrical on inspection, on palpation shows some moderate tenderness diffusely throughout the upper, middle and lower distribution of the paraspinous muscles without specific trigger points, without radiation of pain. The patient has good rotational motion of the lumbar spine, both laterally as well as extension and flexion without significant difficulty. EXTREMITIES: Lower extremities show deep tendon reflexes 2+ in the patellar and tendo calcaneus tendons. Motor exam is 5 on a scale of 5 with right dorsiflexion, extension, quadriceps and hamstring flexion and 4/5 on the left. Peripheral pulses are 1+ posterior tibial. No peripheral edema is noted bilaterally. Lower extremities are warm and dry. SKIN: Shows warm and dry, good turgor. No edema. No sores, rashes or bruising throughout. Procedure: Procedure: Options discussed with patient. Patient's old chart reviews her current medication regimen updated current review of systems updated today as well. We will proceed with a lumbar epidural steroid injection today with fluoroscopic guidance. Risks were discussed including but not limited to: Bleeding, infection, possibility of epidural hematoma and subsequent neurological compromise, dural puncture, headaches, spinal cord and/or nerve damage, side effects of steroid medication, and poor results regarding pain control. Patient understands and wished to proceed. Patient return to clinic in approximately 2 weeks for follow-up, was counseled as return appointment activity level and side effects to be aware of. Medication Injected: Med Injected: Procedure is lumbar epidural steroid injection under local anesthetic using sterile prep and drape at the L5-S1 level using C-arm fluoroscopic guidance in both AP and lateral views medications injected is 120 mg Depo-Medrol +10mL preservative-free normal saline and 2 mL contrast- condition at discharge is stable patient tolerated procedure well had no complications. Condition at Discharge: Condition at Discharge: Condition at discharge stable, patient already procedure well and had no complications. LEXI AUGUST MD Oct 29, 2020 10:46
--- NOTE | 2020-10-29 10:47 | PDOC4 ---
Procedure Note: Procedure Note: Patient was consented for lumbar epidural steroid injection. Risks were discussed including but not limited to: Bleeding, infection, possibility of epidural hematoma and subsequent neurological compromise, dural puncture, headaches, spinal cord and/or nerve damage, side effects of steroid medication, and poor results regarding pain control. Patient understands and wished to proceed. Procedure is lumbar epidural steroid injection under local anesthetic using sterile prep and drape at the L5-S1 level using C-arm fluoroscopic guidance in both AP and lateral views medications injected is 120 mg Depo-Medrol +10mL preservative-free normal saline and 2 mL contrast- condition at discharge is stable patient tolerated procedure well had no complications. LEXI AUGUST MD Oct 29, 2020 10:47
== END | disposition home or self-care (01) ==
LOC: PNCL 09:42
PROVIDERS: ATTEND Anesthesiology
DX: M51.16 Intervertebral disc disorders with radiculopathy, lumbar region (principal); M47.816 Spondylosis without myelopathy or radiculopathy, lumbar region; M50.10 Cervical disc disorder with radiculopathy, unspecified cervical region; M79.18 Myalgia, other site; E78.00 Pure hypercholesterolemia, unspecified; K21.9 Gastro-esophageal reflux disease without esophagitis; M19.90 Unspecified osteoarthritis, unspecified site; Z85.828 Personal history of other malignant neoplasm of skin; Z79.899 Other long term (current) drug therapy; Z98.890 Other specified postprocedural states; Z87.891 Personal history of nicotine dependence; Z88.0 Allergy status to penicillin; Z88.8 Allergy status to other drugs, medicaments and biological substances
CPT/HCPCS: 62323; J1030; J1040; Q9965

== ENCOUNTER → 2020-11-17 | Outpatient (CLI) | payer MEDICARE, OTHER ==
[~2020-11-17] MED LIST changes: -IOHEXOL 180 MG/ML 10 ML VIAL. ONE; +REGADENOSON 0.4 MG/5 ML DISP.SYRIN. IV ONE; -methylPREDNISolone ACETATE 40 MG/ML VIAL. ONE; -methylPREDNISolone ACETATE 80 MG/ML VIAL. ONE
--- NOTE | 2020-11-17 18:48 | RAD ---
MR#: [id number] Date of Study: 11/17/2020 Ordering Physician: JOLIE BARAHONA Referring Physician: MADELYN FRANK Tech: RT Nakia Salmon) (N) APPROVED REPORT Test Type: Pharmacological Stress Nurse/Tech: Sindy Alaniz RN Test Indications: CT Calcium Cardiac History: Murmur Medications: See Electronic Medical Record Medical History: See Electronic Medical Record Resting ECG: SB with PACs Resting Heart Rate: 54 bpm Resting Blood Pressure: 110/75mmHg Pretest Chest Pain: No chest pain Nurse/Tech Notes S1,S2 and lungs clear to auscultation. Consent: The procedure was explained to the patient in lay terms. Informed consent was witnessed. Yovany eout was entered into [employer]. History and Stress Test performed by STEPHANIE Palmer Pharm. Details Pharmacologic stress testing was performed using 0.4mg per 5ml of regadenoson given intravenously ove r 7-10 seconds. Stress Symptoms Claudication (patient stated his arms became numb) POST EXERCISE Reason for Termination: Infusion complete Target HR: No Max HR: 104 bpm Max Blood Pressure: 118/67mmHg Blood Pressure response to exercise: Normal blood pressure response during stress. Heart Rate response to exercise: WNL Chest Pain: No. Arrhythmia: Yes. PACs ST Change: No. INTERPRETATION Stress EKG Conclusion: No evidence of stress induced EKG changes. Imaging Protocol IMAGE PROTOCOL: Rest Tc-99m/stress Tc-99m 1 day Rest: Stress: Viability: Radiopharm.Tc99m OpyhsftsvRn17o Sestamibi Dose10.2mCi 33mCi Duration 13min. 13min. Img Date 11/17/2020 11/17/2020 Inj-Img Szdb52eqs. 60min. Rest Admin Site:IV - Right AntecubitalAdministrator:RT Viky (R)(N) Stress Admin Site: IV - Right AntecubitalAdministrator: STEPHANIE Palmer STRESS DATA End Diast. Vol.97.0mlLVEDV index BSA47.0ml End Syst. Vol.29.0mlLVESV index BSA14.0ml Myocardial Fvqc044.0gEject. Pjmxczft61.0% Stress Scores Regional WT0.00Summed WT7.00 Regional WM0.00Summed WM0.00 The rest and stress images show normal perfusion, normal contraction and thickening. LV Perf. Quant 17 Seg. SSS0.00 17 Seg. SRS0.00 17 Seg. SDS0.00 Stress Defect Extent (% LAD)0.00Rest Defect Extent (% LAD)0.00Rev. Defect Extent (% LAD)0.00 Stress Defect Extent (% LCX) 0.00Rest Defect Extent (% LCX)0.00Rev. Defect Extent (% LCX)0.00 Stress Defect Extent (% RCA)0.00Rest Defect Extent (% RCA)0.00Rev. Defect Extent (% RCA)0.00 Stress Defect Extent (% BARBARA)0.00Rest Defect Extent (% BARBARA)0.00Rev. Defect Extent (% BARBARA)0.00 Other Information Quality:Good Risk Assessment: Low Risk Conclusion 1. No evidence of EKG changes with stress testing. 2. Normal perfusion at stress/rest. 3. Low risk study. 4. EF > 60%. Signed by : Butch Felder, Electronically Approved : 11/17/2020 18:47:24
== END ==
LOC: NM 08:23
PROVIDERS: ATTEND Internal Medicine Cardiovascular Disease
DX: I25.10 Atherosclerotic heart disease of native coronary artery without angina pectoris (principal)
CPT/HCPCS: 78452; 93017; A9500; J2785

== ENCOUNTER → 2020-12-24 | Outpatient (CLI) | payer MEDICARE, OTHER ==
[~2020-12-24] MED LIST changes: +IOHEXOL 180 MG/ML 10 ML VIAL. ONE; -REGADENOSON 0.4 MG/5 ML DISP.SYRIN. IV ONE; +methylPREDNISolone ACETATE 80 MG/ML VIAL. ONE
--- NOTE | 2020-12-24 08:53 | PDOC ---
Progress Note - Pain Clinic Date of Service: DOS: DATE: 12/24/20 TIME: 08:50 Diagnosis: Dx: Lumbar radiculopathy with lumbar degenerative disease lumbar spinal stenosis lumbar spondylosis Cervical radiculopathy with cervical degenerative disease Myofascial pain History or Present Illness: HPI: 85-year-old male returns for follow-up status post lumbar epidural steroid injection x1. Patient was 1% improvement for about 7 weeks following the injection the pain returning now in the low back and the left lower extremity greater than the right but present bilaterally patient reports rating the posterior gluteus posterior thigh posterior calf on the left side some on the right as well patient rates as 8 on scale 10 is worse over the past week 7 on average 5 its least is a 7 today patient was aching and sharp radiating shooting stabbing some tenderness in the low back with cramping pain as well. Patient r eports its better with stretching and strengthening he started a new yoga routine which he feels is helping as well. Patient continues to do competitive ballroom dancing as well as competitive bowling very effectively and does not like the pain slowing down too much. Patient reports no new motor or sensory deficits no bowel or bladder incontinence. 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 Patient reports over the last week the pain has become much more noticeable and much more noticeable in the right leg which is generally only on the left side as this is a new finding for him but is still worse on the left rating to the right posterior gluteus and thigh more than normal. Patient reports no deficits however and no limitation in his activity despite the pain being increased. Physical Exam: VS: Blood pressure is 141/78 pulse 58 respirations are 18 temperature 97.3 F weight is 201 pounds PE: PHYSICAL EXAMINATION: GENERAL: The patient is awake, alert, oriented, appropriate, very pleasant in demeanor HEENT: Shows normocephalic, atraumatic. Patient wearing hearing aids bilaterally extraocular movements are intact and symmetrical. Oral cavity: Mucous membranes moist and pink. NECK: Shows anterior throat supple without palpable lymphadenopathy noted. Swallow reflex symmetrical. CHEST: Shows normal on inspection. Breath sounds are clear bilaterally, no rales rhonchi wheezes auscultated. HEART: Shows S1, S2 clear. No murmurs auscultated. ABDOMEN: Soft, nontender, nondistended, obese. No palpable organomegaly is note d. No rebound or guarding demonstrated. BACK: Shows spine grossly in the midline. Normal-appearing cervical lordotic curvature. There is slightly increased thoracic kyphosis, some minor flattening of the lumbar lordotic curvature. Lumbar paraspinous muscles show symmetrical on inspection, on palpation shows some moderate tenderness diffusely throughout the upper, middle and lower distribution of the paraspinous muscles without specific trigger points, without radiation of pain. The patient has good rot ational motion of the lumbar spine, both laterally as well as extension and flexion without significant difficulty. No tenderness over the spinous processes, sacrum or sacroiliac regions. EXTREMITIES: Lower extremities show deep tendon reflexes deep in the patellar and tendo calcaneus tendons. Motor exam is 5 on a scale of 5 with right dorsiflexion, extension, quadriceps and hamstring flexion and 4/5 on the left. Peripheral pulses are 1+ posterior tibial. No peripheral edema is noted bilaterally. Lower extremities are warm and dry. SKIN: Shows warm and dry, good turgor. No edema. No sores, rashes or bruising throughout. Procedure: Procedure: Options discussed with the patient. Patient chart reviews his current medicat ion regimen updated current review of systems updated today as well. We will proceed with a lumbar epidural steroid injection today with fluoroscopic guidance. Risks were discussed including but not limited to: Bleeding, infection, possibility of epidural hematoma and subsequent neurological compromise, dural puncture, headaches, spinal cord and/or nerve damage, side effects of steroid medication, and poor results regarding pain control. Patient understands and wished to proceed. Patient will return to the clinic in approximately 4 weeks for follow-up, was counseled as return appointment activity level and side effects to be aware of. Patient will restart his Plavix tomorrow 12/25/2020 Medication Injected: Med Injected: Procedure is lumbar epidural steroid injection under local anesthetic using sterile prep and drape at the L5-S1 level using C-arm fluoroscopic guidance in both AP and lateral views medications injected is 120 mg Depo-Medrol +10mL preservative-free normal saline and 2 mL contrast- condition at discharge is stable patient tolerated procedure well had no complications. Condition at Discharge: Condition at Discharge: Condition at discharge stable, patient already the procedure well and had no complications. LEXI AUGUST MD Dec 24, 2020 08:53
--- NOTE | 2020-12-24 08:54 | PDOC4 ---
Procedure Note: ICD 10 Code: ICD 10 Code: M54.17 M 48.07 M51.87 Procedure Note: Patient was consented for lumbar epidural steroid injection with fluoroscopic guidance risks were discussed including but not limited to: Bleeding, infection, possibility of epidural hematoma and subsequent neurological compromise, dural puncture, headaches, spinal cord and/or nerve damage, side effects of steroid medication, and poor results regarding pain control. Patient understands and wished to proceed. Procedure is lumbar epidural steroid injection under local anesthetic using sterile prep and drape at the L5-S1 level using C-arm fluoroscopic guidance in both AP and lateral views medications injected is 120 mg Depo-Medrol +10mL preservative-free normal saline and 2 mL contrast- condition at discharge is stable patient tolerated procedure well had no complications. LEXI AUGUST MD Dec 24, 2020 08:53
== END | disposition home or self-care (01) ==
LOC: PNCL 07:53
PROVIDERS: ATTEND Anesthesiology
DX: M51.16 Intervertebral disc disorders with radiculopathy, lumbar region (principal); M48.061 Spinal stenosis, lumbar region without neurogenic claudication; M47.26 Other spondylosis with radiculopathy, lumbar region; M50.10 Cervical disc disorder with radiculopathy, unspecified cervical region; M79.18 Myalgia, other site; E78.00 Pure hypercholesterolemia, unspecified; K21.9 Gastro-esophageal reflux disease without esophagitis; M19.90 Unspecified osteoarthritis, unspecified site; Z85.828 Personal history of other malignant neoplasm of skin; Z79.899 Other long term (current) drug therapy; Z98.890 Other specified postprocedural states; Z87.891 Personal history of nicotine dependence; Z72.89 Other problems related to lifestyle; Z88.0 Allergy status to penicillin; Z88.8 Allergy status to other drugs, medicaments and biological substances
CPT/HCPCS: 62323; J1040; Q9965

== ENCOUNTER 2021-02-04 04:03 | Emergency (ER) | payer MEDICARE, OTHER ==
[~2021-02-04] VITALS: Ht 180.3 cm; Wt 88.0 kg
[~2021-02-04 04:03] MED LIST changes: -IOHEXOL 180 MG/ML 10 ML VIAL. ONE; -methylPREDNISolone ACETATE 80 MG/ML VIAL. ONE
--- NOTE | 2021-02-04 05:10 | PHYS DOC ---
Past Medical History Past Medical History: GERD, High Cholesterol, Other Additional Past Medical Histor: enlarged prostate, irregular rhythm, ulcers (KAROLINA THACKER DO) Past Surgical History: Knee Replacement, Tonsillectomy, Other Additional Past Surgical Histo: bilateral knee, adnoidectomy, carpel tunnel surgery (KAROLINA THACKER DO) Smoking Status: Former Smoker Alcohol Use: Rarely Drug Use: None (KAROLINA THACKER DO) General Adult EDM: Chief Complaint: CONSTIPATION HPI: HPI: Patient is a 85 year old male presents to the ED complaining of constipation with no bowel movement for 3 days along with abdominal pain that is diffuse, sharp, non radiating and associated with not having a bowel movement. He has had constipation in the past but it usually resolves with laxatives, he tried OTC laxatives at home without successful stool production. He denies history of surgery on his abdomen, vomiting. He has been passing flatus at home. The patient denies fever, chills, chest pain, shortness of breath, urinary symptoms, cough, recent trauma, or any other complaints. (KAROLINA THACKER DO) Review of Systems: Review of Systems: Constitutional: Denies fever or chills. Eyes: Denies change in visual acuity. HENT: Denies nasal congestion or sore throat. Respiratory: Denies cough or shortness of breath. Cardiovascular: Denies chest pain or edema. GI: admits to constipation, nausea : Denies dysuria. Musculoskeletal: Denies back pain or joint pain. Integument: Denies rash. Neurologic: Denies headache, focal weakness or sensory changes. Endocrine: Denies polyuria or polydipsia. Lymphatic: Denies swollen glands. Psychiatric: Denies depression or anxiety. (KAROLINA THACKER DO) Heart Score: C/O Chest Pain: No (KAROLINA THACKER DO) Current Medications: Current Medications Medications (Trade) Dose Ordered Sig/Pura Start Time Stop Time Status Last Admin Dose Admin Sodium Chloride 1,000 ml @ 1,000 mls/hr Q1H 02/04/21 05:15 02/04/21 06:14 UNV (KAROLINA THACKER DO) Allergies: Allergies: Allergies Coded Allergies Type Severity Reaction Last Updated Verified mold Allergy Intermediate Swelling, Pt states eyes and nose run, throat becom es scratc 10/12/20 Yes penicillin Allergy Intermediate Rash 10/12/20 Yes aspirin Adverse Reaction Mild 10/12/20 Yes (KAROLINA THACKER DO) Physical Exam: PE: Constitutional: No acute distress, non-toxic appearance. HENT: Atraumatic, bilateral external ears normal, nose normal. Eyes: PERRLA, EOMI, conjunctiva normal, no discharge. Neck: Normal range of motion, supple, no stridor. Cardiovascular: Heart rate regular rhythm. 2+ radial pulses Lungs & Thorax: No respiratory distress, symmetrical expansion. Abdomen: Soft, diffuse mild abdominal tenderness Skin: Warm, dry. Extremities: No tenderness, no cyanosis, ROM intact, no edema. Neurologic: Alert and oriented X 3, normal motor function, normal sensory function, no focal deficits noted. Non ataxic gait. GCS 15. Psychologic: Affect normal, judgment normal, mood normal. (KAROLINA THACKER DO) Current Patient Data: Vital Signs: Vital Signs Date Time Temp Pulse Resp B/P (MAP) Pulse Ox O2 Delivery O2 Flow Rate FiO2 02/04/21 04:20 97.6 49 18 162/77 (105) 97 Room Air 97.6 (KAROLINA THACKER DO) Course & Med Decision Making: Course & Med Decision Making patient with hx of constipation with non focal tenderness on exam, plan to obtain CT and labs to assess. Patient signed out to oncoming physician in stable condition awaiting CT. 0600: Transfer of care to Dr. Allen at this time Patient's current medical course discussed in rounds and patient is currently updated with medical plan Pending diagnostics, reassessment (KAROLINA THACKER DO) Course & Med Decision Making I received this patient in signout with CT of the abdomen/pelvis pending ordered for evaluation of 3 days of constipation and some mild abdominal discomfort. Labs returned largely unremarkable. CT with a large stool burden, but without other acute findings. Reevaluated the patient, he now denies any discomfort. He has only been taking [id number] Senokot. Have advised him to take a stepwise approach for increasing MiraLAX, considering magnesium citrate if that fails for several days. Patient agreeable with this plan. We will give 1 dose of MiraLAX prior to discharge. (KATRIN ALLEN MD) Departure Departure Impression: Primary Impression: Constipation Disposition: HOME / SELF CARE / HOMELESS Condition: STABLE Referrals: HENOK DENNEY MD (PCP) Please schedule follow-up appointment for next week. Patient Instructions: Constipation, Adult Additional Instructions: Your CT scan showed only constipation. It did also show an enlarged prostate. Please follow-up with your primary care doctor to discuss this finding as well as to ensure that your anticonstipation medications are working. You can continue to use the Senokot. Please buy MiraLAX [id number]. Start by taking 1 cap mixed in water twice a day. If you do not have results in the first 24 hours you can increase this to 2 caps mixed in water taken twice a day. If this fails you can consider for stronger agent such as magnesium citrate, please use as directed on label. If you develop worsening discomfort, high fever/shaking chills, nausea/vomiting, or other new/concerning symptoms please return to the emergency department for reevaluation. KAROLINA THACKER DO Feb 04, 2021 05:10 KATRIN ALLEN MD Feb 04, 2021 06:46
[2021-02-04] MEDS ORDERED: IOHEXOL 300 MG/ML 100ML VIAL. IV ONE (05:30)
[2021-02-04] MEDS ORDERED: IV NORMAL SALINE 1000ML BAG 1,000 ML IV SCH (05:30)
[2021-02-04] MEDS ORDERED: ONDANSETRON PF 4 MG/2 ML VIAL. IVP ONE (05:30)
[2021-02-04] MEDS ORDERED: MORPHINE SULFATE 4 MG/ML INJ. IV ONE (05:30)
[2021-02-04] MEDS ORDERED: CONTRAST GIVEN. MC PRN (05:30)
[2021-02-04 05:47] LABS: BILIRUBIN,URINE NEGATIVE (NEG); CLARITY,URINE CLEAR; COLOR,URINE YELLOW; NITRITE,URINE NEGATIVE (NEG); PROTEIN,URINE NEGATIVE (NEG-TRACE)
[2021-02-04 05:47] LABS: BASO % 1 % (0-3); EOS # 0.1 x10^3/uL (0.0-0.7); EOS % 3 % (0-3); HEMATOCRIT 39.1 % (39.0-53.0); HEMOGLOBIN 12.9 g/dL (13.0-17.5); LYMPH # 1.8 x10^3/uL (1.0-4.8); LYMPH % 40 % (24-48); MEAN CORPUSCULAR HEMOGLOBIN 32 pg (25-35); MEAN CORPUSCULAR HGB CONC 33 g/dL (31-37); MEAN CORPUSCULAR VOLUME 95 fL (79-100); MONO # 0.4 x10^3/uL (0.0-1.1); MONO % 9 % (0-9); NEUT # 2.1 x10^3/uL (1.8-7.7); NEUT % 47 % (31-73); PLATELET COUNT 119 x10^3/uL (140-400); RED BLOOD COUNT 4.11 x10^6/uL (4.30-5.70); RED CELL DISTRIBUTION WIDTH 13.2 % (11.5-14.5); WHITE BLOOD COUNT 4.5 x10^3/uL (4.0-11.0)
[2021-02-04 05:57] LABS: CALCIUM 8.5 mg/dL (8.5-10.1); CREATININE 1.2 mg/dL (0.7-1.3); GFR 57.8; POTASSIUM 4.2 mmol/L (3.5-5.1)
[2021-02-04 06:05] LABS: ALBUMIN 3.3 g/dL (3.4-5.0); ALBUMIN/GLOBULIN RATIO 0.9 (1.0-1.7); TOTAL BILIRUBIN 0.4 mg/dL (0.2-1.0); TOTAL PROTEIN 6.8 g/dL (6.4-8.2)
[2021-02-04 06:12] LABS: BACTERIA,URINE 0 /HPF (0-FEW); RBC,URINE 0 /HPF (0-2)
[2021-02-04 06:19] VITALS: BP 156/76
--- NOTE | 2021-02-04 06:35 | RAD ---
EXAMINATION: CT ABDOMEN+PELVIS W CLINICAL HISTORY: Abdominal pain, constipation TECHNIQUE: CT of the abdomen and pelvis was performed using standard technique, scanning from just ab ove the dome of the diaphragm to the symphysis pubis following administration of intravenous contrast . CT Dose Reduction Employed: One or more of the following individualized dose reduction techniques wer e utilized for this examination: 1. Automated exposure control 2. Adjustment of the mA and/or kV ac cording to patient size 3. Use of iterative reconstruction technique. COMPARISON: CT abdomen/pelvis 12/05/2016 FINDINGS: Mild dependent bibasilar subsegmental atelectasis. 1.4 cm hypodense lesion in the left hepatic lobe, similar to prior study and likely represents a cyst . Gallbladder, pancreas, spleen, and adrenal glands unremarkable. Subcentimeter hypoenhancing right renal lesion, too small to adequately characterize. Mildly filled urinary bladder. Enlarged prostate abutting the undersurface of the bladder, progressed from prior study. No bowel dilation or definite wall thickening. Sigmoid diverticulosis without evidence of acute diver ticulitis. Stool throughout the colon, compatible with history of constipation. Appendix within quinton l limits. Arterial atherosclerotic calcification without aneurysm. Multilevel thoracolumbar degenerative changes. Degenerative changes bilateral hips. IMPRESSION: Stool throughout the colon, compatible with reported history of constipation. Enlarged prostate, correlate with PSA level. Electronically signed by: Albaro Reddy DO (02/04/2021 6:33 AM) [facility]
[2021-02-04] MEDS ORDERED: POLYETHYLENE GLYCOL 3350 17 GM PACKET. PO ONE (07:00)
== END 2021-02-04 06:59 | disposition home or self-care (01) ==
LOC: ER 04:03
DX: K59.00 Constipation, unspecified (principal); K21.9 Gastro-esophageal reflux disease without esophagitis; E78.00 Pure hypercholesterolemia, unspecified; Z87.891 Personal history of nicotine dependence; Z88.0 Allergy status to penicillin; Z88.6 Allergy status to analgesic agent; Z88.8 Allergy status to other drugs, medicaments and biological substances
CPT/HCPCS: 36415; 74177; 80053; 81001; 83690; 85025; 96360; 99285; J7030; Q9967

== ENCOUNTER → 2021-02-25 | Outpatient (CLI) | payer MEDICARE, OTHER ==
[2021-02-04 06:19] VITALS: BP 156/76
[~2021-02-25] MED LIST changes: +CYCL10TA19 PO; -CYCL10TA2 PO
--- NOTE | 2021-02-25 08:35 | PDOC4 ---
Procedure Note: ICD 10 Code: ICD 10 Code: M54.16 M51.36 M4 8.06 Procedure Note: Patient was consented for lumbar epidural steroid injection with fluoroscopic guidance. Risks were discussed including but not limited to: Bleeding, infection, possibility of epidural hematoma and subsequent neurological compromise, dural puncture, headaches, spinal cord and/or nerve damage, side effects of steroid medication, and poor results regarding pain control. Patient understands and wished to proceed. Procedure is lumbar epidural steroid injection under local anesthetic using susan rile prep and drape at the L5-S1 level using C-arm fluoroscopic guidance in both AP and lateral views medications injected is 120 mg Depo-Medrol +10mL preservative-free normal saline and 2 mL contrast- condition at discharge is stable patient tolerated procedure well had no complications. LEXI AUGUST MD Feb 25, 2021 08:35
--- NOTE | 2021-02-25 08:35 | PDOC ---
Progress Note - Pain Clinic Date of Service: DOS: DATE: 02/25/21 TIME: 08:32 Diagnosis: Dx: Lumbar radiculopathy with lumbar degenerative disease and lumbar spinal stenosis with lumbar spondylosis Cervical radiculopathy with cervical degenerative disease Myofascial pain History or Present Illness: HPI: 85-year-old male returns for follow-up status post lumbar epidural steroid injection in December 24, 2020. Patient reports about 100% improvement until about a week ago the pain began to return in the low back and the bilateral lower extremities posterior gluteus posterior lateral thigh lateral anterior thigh anteromedial thighs slightly more on the right than the left and present bilaterally patient reports is worse with walking standing changing positions patient has been very active though still competitively bowling as well as competitive ballroom dancing with activity at a very high level. Patient reports until a week ago he was doing much better with household activities traveling with greater ease and comfort recreational activities and athletic activities then the pain began to return as described patient describes as aching and dull in the back shooting and sharp in the legs patient rates as a 6 on scale 10 is worse over the past week for an average for its least is a 4 today. Patient reports no bowel or bladder incontinence. Physical Exam: VS: Blood pressure is 120/72 pulse 59 respirations 18 temperature 97.5 F weight is 200 pounds PE: PHYSICAL EXAMINATION: GENERAL: The patient is awake, alert, oriented, appropriate, very pleasant in demeanor HEENT: Shows normocephalic, atraumatic. Extraocular movements are intact and symmetrical. Oral cavity: Mucous membranes moist and pink. Dentition is intact. NECK: Shows anterior throat supple without palpable lymphadenopathy noted. Swallow reflex symmetrical. CHEST: Shows normal on inspection. Breath sounds are clear bilaterally, no rales or rhonchi. HEART: Shows S1, S2 clear. No murmurs auscultated. ABDOMEN: Soft, nontender, nondistended. No palpable organomegaly is noted. BACK: Shows spine grossly in the midline. Normal-appearing cervical lordotic curvature. There is slightly increased thoracic kyphosis, some flattening of the lumbar lordotic curvature. Lumbar paraspinous muscles show symmetrical on inspection, on palpation shows some moderate tenderness diffusely throughout the upper, middle and lower distribution of the paraspinous muscles, but without specific trigger points, without radiation of pain. The patient has good rotational motion of the lumbar spine, both laterally as well as extension and flexion without significant difficulty. EXTREMITIES: Lower extremities show deep tendon reflexes 2 per in the patellar and tendo calcaneus tendons. Motor exam is 5 on a scale of 5 with right dorsiflexion, extension, quadriceps and hamstring flexion and 4/5 on the left. Peripheral pulses are 1+ posterior tibial. No peripheral edema is noted bilaterally. Lower extremities are warm and dry. SKIN: Shows warm and dry, good turgor. No edema. No sores, rashes or bruising throughout. Procedure: Procedure: Options discussed with the patient. Patient chart was used his current medication regimen updated current review of systems updated today as well. We will proceed with a lumbar epidural steroid injection today with fluoroscopic guidance. Risks were discussed including but not limited to: Bleeding, infection, possibility of epidural hematoma and subsequent neurological comprom ise, dural puncture, headaches, spinal cord and/or nerve damage, side effects of steroid medication, and poor results regarding pain control. Patient understands and wished to proceed. Patient return to the clinic in approximately 4 weeks for follow-up, was counseled return appointment, activity level, and side effects beware of. Medication Injected: Med Injected: Procedure is lumbar epidural steroid injection under local anesthetic using sterile prep and drape at the L5-S1 level using C-arm fluoroscopic guidance in both AP and lateral views medications injected is 120 mg Depo-Medrol +10mL preservative-free normal saline and 2 mL contrast- condition at discharge is stable patient tolerated procedure well had no complications. Condition at Discharge: Condition at Discharge: Condition at discharge is stable, patient tolerated the procedure well and had no complications. LEXI AUGUST MD Feb 25, 2021 08:35
== END | disposition home or self-care (01) ==
LOC: PNCL 07:40
PROVIDERS: ATTEND Anesthesiology
DX: M51.16 Intervertebral disc disorders with radiculopathy, lumbar region (principal); M48.061 Spinal stenosis, lumbar region without neurogenic claudication; M47.26 Other spondylosis with radiculopathy, lumbar region; M50.10 Cervical disc disorder with radiculopathy, unspecified cervical region; M79.18 Myalgia, other site; E78.00 Pure hypercholesterolemia, unspecified; K21.9 Gastro-esophageal reflux disease without esophagitis; M19.90 Unspecified osteoarthritis, unspecified site; Z85.828 Personal history of other malignant neoplasm of skin; Z87.891 Personal history of nicotine dependence; Z79.899 Other long term (current) drug therapy; Z98.890 Other specified postprocedural states; Z88.0 Allergy status to penicillin; Z88.8 Allergy status to other drugs, medicaments and biological substances
CPT/HCPCS: 62323

== ENCOUNTER → 2021-04-22 | Outpatient (CLI) | payer MEDICARE, OTHER ==
--- NOTE | 2021-04-22 09:20 | PDOC ---
Progress Note - Pain Clinic Date of Service: DOS: DATE: 04/22/21 TIME: 09:16 Diagnosis: Dx: Lumbar radiculopathy with lumbar degenerative disease and lumbar spondylosis with lumbar spinal stenosis Cervical radiculopathy with cervical degenerative disc disease Myofascial pain History or Present Illness: HPI: 85-year-old male returns for follow-up status post lumbar epidural steroid injections most recently February 2021 patient did very well with the near 100% improvement about 2 months pain returning about a week ago patient reports no motor or sensory deficits but significant pain returning and patient has been very active he is still in a competitive [employer] league also does competitive [employer] dancing has been working out exercising walking daily as well as he is activities patient reports pain is in the low back into the bilateral lower extremities worse on the left of the right posterior gluteus posterior thigh posterior calf again worse on the left side than the right with activity better with sitting or resting does generally not awaken him from sleep at night patient reports pain is a 7 on scale 10 is worse over the past week 5 on average 3 to [place] is a 3 today patient was aching and sharp in the back patient reports only new pain pain in the tailbone which is noticeable more with standing and walking but not as much with sitting but is different than his usual pain as it is in the tailbone itself is tender to the touch as well. Patient reports no recent falls or injuries to that area but the pain has been increasing over the past week or so. Patient reports no bowel or bladder incontinence no loss of motor function. Physical Exam: VS: Blood pressure is 134/77 pulse 60 respirations 18 temperature 97.3 F weight is 201 pounds PE: PHYSICAL EXAMINATION: GENERAL: The patient is awake, alert, oriented, appropriate, very pleasant and demeanor HEENT: Shows normocephalic, atraumatic. Extraocular movements are intact and symmetrical. Oral cavity: Mucous membranes moist and pink. NECK: Shows anterior throat supple without palpable lymphadenopathy noted. Swallow reflex symmetrical. CHEST: Shows normal on inspection. Breath sounds are clear bilaterally. HEART: Shows S1, S2 clear. No murmurs auscultated. ABDOMEN: Soft, nontender, nondistended. No palpable organomegaly is noted. BACK: Shows spine grossly in the midline. Normal-appearing cervical lordotic curvature. There is slightly increased thoracic kyphosis, some flattening of the lumbar lordotic curvature. Lumbar paraspinous muscles show symmetrical on inspection, on palpation shows some moderate tenderness diffusely throughout the upper, middle and lower distribution of the paraspinous muscles, but without specific trigger points, without radiation of pain. The patient has good rotational motion of the lumbar spine, both laterally as well as extension and flexion without significant difficulty. Moderate tenderness over the inferior sacrum and to the coccyx even with moderate palpation but no radiation of pain no obvious displacement or abnormalities palpated but significant tenderness over this area. EXTREMITIES: Lower extremities show deep tendon reflexes 2+ in the patellar and tendo calcaneus tendons. Motor exam is 5 on a scale of 5 with right dorsiflexion, extension, quadriceps and hamstring flexion and 4/5 on the left. Peripheral pulses are 1+ posterior tibial. No peripheral edema is noted bilaterally. Lower extremities are warm and dry to touch, equal in color and appearance. SKIN: Shows warm and dry, good turgor. No edema. No sores, rashes or bruising throughout. Procedure: Procedure: Options were discussed with the patient. Patient's old chart was reviewed his his current medication regimen updated current review of systems updated today as well. We will proceed with a lumbar epidural steroid injection today with fluoroscopic guidance. Risks were discussed including but not limited to: Bleeding, infection, possibility of epidural hematoma and subsequent neurologi jose compromise, dural puncture, headaches, spinal cord and/or nerve damage, side effects of steroid medication, and poor results regarding pain control. Patient understands and wished to proceed. Patient will return to the clinic in approximately 4 weeks for follow-up, was counseled as return appointment, activity level and side effect to be aware of. Medication Injected: Med Injected: Procedure is lumbar epidural steroid injection under local anesthetic using sterile prep and drape at the L5-S1 level using C-arm fluoroscopic guidance in both AP and lateral views medications injected is 120 mg Depo-Medrol +10mL preservative-free normal saline and 2 mL contrast- condition at discharge is stable patient tolerated procedure well had no complications. Condition at Discharge: Condition at Discharge: Condition at discharge stable, patient tolerated the procedure well and had no complications. LEXI AUGUST MD Apr 22, 2021 09:20
--- NOTE | 2021-04-22 09:21 | PDOC4 ---
Procedure Note: ICD 10 Code: ICD 10 Code: M54.16 M51.36 M48.06 Procedure Note: Patient was consented for lumbar epidural steroid injection with fluoroscopic guidance. Risks were discussed including but not limited to: Bleeding, infection, possibility of epidural hematoma and subsequent neurological compromise, dural puncture, headaches, spinal cord and/or nerve damage, side effects of steroid medication, and poor results regarding pain control. Patient understands and wished to proceed. Procedure is lumbar epidural steroid injection under local anesthetic using ster ile prep and drape at the L5-S1 level using C-arm fluoroscopic guidance in both AP and lateral views medications injected is 120 mg Depo-Medrol +10mL preservative-free normal saline and 2 mL contrast- condition at discharge is stable patient tolerated procedure well had no complications. LEXI AUGUST MD Apr 22, 2021 09:21
== END | disposition home or self-care (01) ==
LOC: PNCL 08:05
PROVIDERS: ATTEND Anesthesiology
DX: M51.16 Intervertebral disc disorders with radiculopathy, lumbar region (principal); M47.26 Other spondylosis with radiculopathy, lumbar region; M48.061 Spinal stenosis, lumbar region without neurogenic claudication; M50.10 Cervical disc disorder with radiculopathy, unspecified cervical region; M79.18 Myalgia, other site; E78.00 Pure hypercholesterolemia, unspecified; K21.9 Gastro-esophageal reflux disease without esophagitis; M19.90 Unspecified osteoarthritis, unspecified site; Z85.828 Personal history of other malignant neoplasm of skin; Z79.899 Other long term (current) drug therapy; Z98.890 Other specified postprocedural states; Z87.891 Personal history of nicotine dependence; Z88.0 Allergy status to penicillin; Z88.8 Allergy status to other drugs, medicaments and biological substances
CPT/HCPCS: 62323

== ENCOUNTER → 2021-06-17 | Outpatient (CLI) | payer MEDICARE, OTHER ==
[~2021-06-17] MED LIST changes: +DEXAMETHASONE PRES.FREE 10 MG/ML VIAL. ONE; +IOHEXOL 180 MG/ML 10 ML VIAL. ONE
--- NOTE | 2021-06-17 09:09 | PDOC ---
Progress Note - Pain Clinic Date of Service: DOS: DATE: 06/17/21 TIME: 09:06 Diagnosis: Dx: Lumbar radiculopathy with lumbar degenerative disease lumbar spinal stenosis with lumbar spondylosis Cervical radiculopathy cervical degenerative disc disease Myofascial pain History or Present Illness: HPI: 85-year-old male returns for follow-up status post lumbar epidural steroid injection last seen April 22, 2021 patient reports that Nearhood percent improvement for several weeks until but 1 week ago the pain began to return in t he low back and slightly more to the left than the right with radiating pain into the lower extremities posterior gluteus posterior lateral thigh lateral anterior thighs anterior medial thighs and lower legs patient reports is worse with walking standing change positions patient has maintained activity however is still doing competitive dancing as well as bowling several times a week patient reports the pain is beginning to limit his activity however patient reports does not generally awaken from sleep at night rates pain as 8 on scale 10 is worse over the past week 7 on average 5 to S[place]asman is a 7 today patient reports a new pain however in the mid upper back between the shoulder blades which is tight and stinging also burning sensation in this region patient reports no loss of motor function no bowel or bladder incontinence. Physical Exam: VS: Blood pressure is 129/76 pulse 81 respirations 18 temperature is 97.3 F weight is 204 pounds. PE: PHYSICAL EXAMINATION: GENERAL: The patient is awake, alert, oriented, appropriate, very pleasant in demeanor HEENT: Shows normocephalic, atraumatic. Extraocular movements are intact and symmetrical. Patient with hearing aids. Oral cavity: Mucous membranes moist and pink. Dentition is intact. NECK: Shows anterior throat supple without palpable lymphadenopathy noted. Swallow reflex symmetrical. CHEST: Shows normal on inspection. Breath sounds are clear bilaterally, no rales rhonchi or wheezes auscultated. HEART: Shows S1, S2 clear. No murmurs auscultated. ABDOMEN: Soft, nontender, nondistended. No palpable organomegaly is noted. BACK: Shows spine grossly in the midline. Normal-appearing cervical lordotic curvature. There is slightly increased thoracic kyphosis, some minor flattening of the lumbar lordotic curvature. Thoracic paraspinous muscles show symmetrical inspection on palpation some significant tenderness bilaterally in the mid distribution of the rhomboid musculature and trapezius medially without specific trigger points very firm and tender consistent with a myofascial etiology without radiation. Lumbar paraspinous muscles show symmetrical on inspection, on palpation shows some moderate tenderness diffusely throughout the upper, middle and lower distribution of the paraspinous muscles, but without specific trigger points, without radiation of pain. The patient has good rotational motion of the lumbar spine, both laterally as well as extension and flexion without significant difficulty. EXTREMITIES: Lower extremities show deep tendon reflexes 2 in the patellar and tendo calcaneus tendons. Motor exam is 5 on a scale of 5 with right dorsiflexion, extension, quadriceps and hamstring flexion and 4/5 on the left. Peripheral pulses are 1 posterior tibial. No peripheral edema is noted bilaterally. Lower extremities are warm and dry to touch, equal in color and appearance. SKIN: Shows warm and dry, good turgor. No edema. No sores, rashes or bruising throughout. Procedure: Procedure: Options were discussed with the patient. Patient's old chart was viewed as his current medication regimen updated current review of systems updated today as well. We will proceed with a lumbar epidural steroid injection stable fluoroscopic guidance. Risks were discussed including but not limited to: Bleeding, infection, possibility of epidural hematoma and subsequent neurological compromise, dural puncture, headaches, spinal cord and/or nerve damage, side effects of steroid medication, and poor results regarding pain control. Patient understands and wished to proceed. Also, patient with myofascial pain in the mid thoracic paraspinous musculature as well as the rhomboid distribution will recommend heat and massage therapies also showed pat ient some stretching exercises to perform as well as putting on Aspercreme rub which she reports helps and heat therapies. If not significantly improved will address this with potential interventional techniques in the future. Patient return to the clinic in approximate 4 weeks for follow-up, was counseled as to return appointment, Activella, and side effect to be aware of. Medication Injected: Med Injected: Procedure is lumbar epidural steroid injection under local anesthetic using sterile prep and drape at the L5-S1 level using C-arm fluoroscopic guidance in both AP and lateral views medications injected is 20 mg dexamethasone +10mL preservative-free normal saline and 2 mL contrast- condition at discharge is stable patient tolerated procedure well had no complications. Condition at Discharge: Condition at Discharge: Condition at discharge stable, paced tolerated procedure well and had no complications. LEXI AUGUST MD Jun 17, 2021 09:09
== END | disposition home or self-care (01) ==
LOC: PNCL 08:03
PROVIDERS: ATTEND Anesthesiology
DX: M51.16 Intervertebral disc disorders with radiculopathy, lumbar region (principal); M48.061 Spinal stenosis, lumbar region without neurogenic claudication; M47.26 Other spondylosis with radiculopathy, lumbar region; M50.10 Cervical disc disorder with radiculopathy, unspecified cervical region; M79.18 Myalgia, other site; E78.00 Pure hypercholesterolemia, unspecified; K21.9 Gastro-esophageal reflux disease without esophagitis; M19.90 Unspecified osteoarthritis, unspecified site; Z85.828 Personal history of other malignant neoplasm of skin; Z79.899 Other long term (current) drug therapy; Z98.890 Other specified postprocedural states; Z87.891 Personal history of nicotine dependence; Z72.89 Other problems related to lifestyle; Z88.0 Allergy status to penicillin; Z88.8 Allergy status to other drugs, medicaments and biological substances
CPT/HCPCS: 62323; J1100; Q9965

== ENCOUNTER 2021-07-18 04:38 | Emergency (ER) | payer MEDICARE, OTHER ==
[~2021-07-18] VITALS: Ht 180.3 cm; Wt 88.6 kg
[~2021-07-18 04:38] MED LIST changes: -DEXAMETHASONE PRES.FREE 10 MG/ML VIAL. ONE; -IOHEXOL 180 MG/ML 10 ML VIAL. ONE; -OMEP20TA8 PO; +OMEP20TA91 PO
[2021-07-18 04:40] VITALS: BP 130/71
--- NOTE | 2021-07-18 05:04 | PHYS DOC ---
Past Medical History Past Medical History: GERD, High Cholesterol, Other Additional Past Medical Histor: Degenerative disc disease, heart murmur Past Surgical History: Tonsillectomy, Other Additional Past Surgical Histo: Knee replacement, carpal tunnel repair Smoking Status: Former Smoker Alcohol Use: Rarely Drug Use: None Adult General Chief Complaint Chief Complaint: Insomnia HPI HPI The patient is an 85-year-old male who resides at home in the community and takes a few daily medications. He presents for evaluation of insomnia for the past 2 nights. States he has not gotten any rest over that interval. Over the same 2-day period, Mr. Bonds reports upper respiratory symptoms including rhinorrhea, nasal congestion and a mild dry cough. He has taken a dose of Mucin ex each day in the mornings but has not consistently taken medication through the day to address his symptoms and has not taken anything before bed at night. He denies any other focal or specific symptoms and specifically denies fevers, nausea or vomiting, sore throat, shortness of breath or chest pain of any kind, abdominal pain of any kind, flank pain, midline back pain, dysuria, hematuria, polyuria or oliguria, changes in bowel habits, pain or swelling to arms or legs. Patient is alert, oriented x4, pleasantly and appropriately interactive and in absolutely no acute distress with completely appropriate vital signs upon initial evaluation here in the emergency department. He ambulated in with a narrow, steady gait and drove himself here in his personal vehicle. Review of Systems Review of Systems A 12 point review of systems was completed and was negative except where noted in HPI above. Allergies Allergies Allergies Coded Allergies Type Severity Reaction Last Updated Verified mold Allergy Intermediate Swelling, Pt states eyes and nose run, throat becomes scratc 07/18/21 Yes penicillin Allergy Intermediate Rash 07/18/21 Yes aspirin Adverse Reaction Mild 07/18/21 Yes Physical Exam Physical Exam Elderly male appearing nontoxic and in no acute distress. Head is normocephalic and atraumatic. Neck is supple and nontender. No neck stiffness/rigidity/meningismus seen and patient ranges neck fully in all dimensions without discomfort or distress. Kernig's and Brudzinski's are negative. Oropharynx is moist. Mild nasal mucus bilaterally. Lungs are clear to auscultation at all stations. No adventitious sounds, no tachypnea, no increased work of breathing, speaking comfortably in full sentences and normal tone of voice. There is a normal S1 and S2 without rubs or gallops and capillary refill is appropriate, less than 2 seconds globally. Abdomen is soft, nontender and nondistended. No pulsatile mass. Skin is warm and dry without cyanosis, clubbing or edema. Psychiatrically, the patient demonstrates appropriate mood and affect and is alert. Evaluation of the extremities reveals BUEs and BLEs neurovascularly intact distally with strength 5 out of 5, sensation intact light touch in all nerve distributions, radial, DP and PT pulses 2+ and equal bilaterally, capillary refill less than 2 seconds, hands and feet warm and well-perfused. No dependent peripheral edema distally. No calf tenderness or swelling bilaterally. Catherine's test is negative bilaterally. Current Patient Data Vital Signs Vital Signs Date Time Temp Pulse Resp B/P (MAP) Pulse Ox O2 Delivery O2 Flow Rate FiO2 07/18/21 04:40 98.0 66 20 130/71 (90) 98 Room Air 98.0 EKG EKG [] Radiology/Procedures Radiology/Procedures [] Course & Med Decision Making Course & Med Decision Making Completely well-appearing 85-year-old community dwelling gentleman presenting for evaluation of mild URI symptoms x2 days with concomitant insomnia. Vital signs and clinical examination are wholly reassuring. No evidence of emergency condition is identified. Patient is counseled to purchase generic DayQuil and NyQuil and to use those as per the instructions on their packages; he is to take DayQuil as needed through the daytime and to take NyQuil before bed to help him sleep. Recommended close follow-up with primary care in the next 2 to 4 days and that the patient return to the emergency department right away if symptoms worsen or if other new symptoms of concern develop. Patient in agreement with this plan of care and all questions have been answered. Dragon Disclaimer Dragon Disclaimer This electronic medical record was generated, in whole or in part, using a voice recognition dictation system. Departure Departure Impression: Primary Impression: Insomnia Additional Impression: Upper respiratory infection, viral Disposition: HOME / SELF CARE / HOMELESS Condition: STABLE Referrals: HENOK DENNEY MD (PCP) Patient Instructions: Insomnia, Upper Respiratory Infection, Adult Additional Instructions: Follow-up very closely with your primary care physician in the office in the next 2 to 4 days for reevaluation of your symptoms and a discussion of next best steps in care. Go to the 24-hour [facility] at [facility] and [facility] and purchase generic/store brand DayQuil and NyQuil cough and cold medication. Take the DayQuil as per the instructions on the package during the daytime to help with your cold symptoms. Take the NyQuil before you go to bed to help with your cold symptoms and to help you sleep. Drink plenty of fluids and get plenty of rest. Return to the emergency department right away for worsening symptoms of any kind or with any other new symptoms of concern. Problem Qualifiers Primary Impression: Insomnia Insomnia type: other insomnia Qualified Codes: G47.09 - Other insomnia TYSHAWN KOEHLER MD Jul 18, 2021 05:04
== END 2021-07-18 05:22 | disposition home or self-care (01) ==
LOC: ER 04:38
DX: G47.00 Insomnia, unspecified (principal); R05.9 Cough, unspecified; R09.81 Nasal congestion; K21.9 Gastro-esophageal reflux disease without esophagitis; E78.00 Pure hypercholesterolemia, unspecified; Z87.891 Personal history of nicotine dependence; Z88.0 Allergy status to penicillin; Z88.6 Allergy status to analgesic agent; Z88.8 Allergy status to other drugs, medicaments and biological substances
CPT/HCPCS: 99282

== ENCOUNTER → 2021-08-17 | Outpatient (CLI) | payer MEDICARE, OTHER ==
[2021-07-18 04:40] VITALS: BP 130/71
[~2021-08-17] MED LIST changes: +DEXAMETHASONE PRES.FREE 10 MG/ML VIAL. ONE; +IOHEXOL 180 MG/ML 10 ML VIAL. ONE
--- NOTE | 2021-08-17 08:57 | PDOC ---
Progress Note - Pain Clinic Date of Service: DOS: DATE: 08/17/21 TIME: 08:53 Diagnosis: Dx: Lumbar radiculopathy lumbar degenerative disc disease lumbar spinal stenosis and lumbar spondylosis Cervical radiculopathy with cervical degenerative disease Myofascial pain History or Present Illness: HPI: 85-year-old male returns for follow-up status post lumbar epidural steroid injection last seen June 17, 2021 patient did very well with about 100% improvement until about a week ago pain began to return in the low back and the left lower extremity. Patient reports he has been very active with competitive dancing as well as bowling and just had a tournament with multiple games Kayla some increased pain in the back and the left leg patient reports also some 6 pain in the mid back between the shoulder blades which has been bothering him as well as in the left lateral hip patient is using icy hot Biofreeze and alternating with heat which is helpful with the hip not as much with the upper mid back. Patient rates pain as a 9 on scale 10 is worse over the past week 8 on average 6 its least is a 6 today patient has aching sharp and dull in the low back and left lower extremity with cramping pain can be radiating constant and severe with walking standing better with sitting or laying down again it wakes him from sleep about once a night at the most. Patient reports the pain between the shoulders is somewhat problematic recently attributes this to recent increase in activity, but is still significant even after the activities completed. Physical Exam: VS: Blood pressure is 140/88 pulse 74 respirations 18 temperature 97.5 height 5 feet 11 inches weight is 207 pounds. PE: PHYSICAL EXAMINATION: GENERAL: The patient is awake, alert, oriented, appropriate, very pleasant in demeanor HEENT: Shows normocephalic, atraumatic. Extraocular movements are intact and symmetrical. Patient wearing eyeglasses. Oral cavity: Mucous membranes moist and pink. NECK: Shows anterior throat supple without palpable lymphadenopathy noted. Swallow reflex symmetrical. CHEST: Shows normal on inspection. Breath sounds are clear bilaterally, no rales or rhonchi. HEART: Shows S1, S2 clear. No murmurs auscultated. ABDOMEN: Soft, nontender, nondistended. No palpable organomegaly is noted. BACK: Shows spine grossly in the midline. Normal-appearing cervical lordotic curvature. Cervical paraspinous muscles show symmetrical inspection, palpation some moderate tenderness diffusely more diffusely bilaterally. Patient has full rotation motion cervical spine both laterally as well as extension flexion without significant difficulty or pain reported. There is slightly increased thoracic kyphosis, some minor flattening of the lumbar lordotic curvature. Thoracic paraspinous muscles show symmetrical but with palpation shows significant tenderness in the rhomboid musculature in the mid thoracic distr ibution of the paraspinous musculature without trigger points or radiation but diffusely tender bilaterally. Lumbar paraspinous muscles show symmetrical on inspection, on palpation shows some moderate tenderness diffusely throughout the upper, middle and lower distribution of the paraspinous musculature, without specific trigger points, without radiation of pain. The patient has good rotational motion of the lumbar spine, both laterally as well as extension and flexion without significant difficulty. EXTREMITIES: Lower extremities show deep tendon reflexes 2+ in the patellar and tendo calcaneus tendons. Motor exam is 5 on a scale of 5 with right dorsiflexion, extension, quadriceps and hamstring flexion and 4/5 on the left. Peripheral pulses are 1 Kayla posterior tibial. No peripheral edema is noted bilaterally. Lower extremities are warm and dry. SKIN: Shows warm and dry, good turgor. No edema. No sores, rashes or bruising throughout. Procedure: Procedure: Options were discussed with the patient. Patient's old chart was reviewed his current medication regimen updated current review of systems updated today as well. We will proceed with a lumbar epidural steroid injection today with fluoroscopic guidance. Risks were discussed including but not limited to: Bleeding, infection, possibility of epidural hematoma and subsequent neurological compromise, dural puncture, headaches, spinal cord and/or nerve damage, side effects of steroid medication, and poor results regarding pain control. Patient understands and wished to proceed. Recommend heat and ice and stretching techniques to the upper mid back with myofascial pain and demonstrated some stretching for the patient today as well. Patient will try this and report back. Patient will return to clinic in approximately 2 weeks for follow-up, was counseled as to return appointment, activity level, and side effects to be aware of. Medication Injected: Med Injected: Procedure is lumbar epidural steroid injection under local anesthetic using sterile prep and drape at the L5-S1 level using C-arm fluoroscopic guidance in b oth AP and lateral views medications injected is 20 mg dexamethasone +10mL preservative-free normal saline and 2 mL contrast- condition at discharge is stable patient tolerated procedure well had no complications. Condition at Discharge: Condition at Discharge: Condition at discharge stable, patient tolerated the procedure well and had no complications. LEXI AUGUST MD August 17, 2021 08:57
--- NOTE | 2021-08-17 08:58 | PDOC4 ---
Procedure Note: ICD 10 Code: ICD 10 Code: M54.16 M48.06 M51.36 M60.89 Procedure Note: Patient was consented for lumbar epidural steroid injection with fluoroscopic guidance. Risks were discussed including but not limited to: Bleeding, infection, possibility of epidural hematoma and subsequent neurological compromise, dural puncture, headaches, spinal cord and/or nerve damage, side effects of steroid medication, and poor results regarding pain control. Patient understands and wished to proceed. Procedure is lumbar epidural steroid injection under local anesthetic using sterile prep and drape at the L5-S1 level using C-arm fluoroscopic guidance in both AP and lateral views medications injected is 20 mg dexamethasone +10mL preservative-free normal saline and 2 mL contrast- condition at discharge is stable patient tolerated procedure well had no complications. LEXI AUGUST MD August 17, 2021 08:58
== END | disposition home or self-care (01) ==
LOC: PNCL 07:55
PROVIDERS: ATTEND Anesthesiology
DX: M51.16 Intervertebral disc disorders with radiculopathy, lumbar region (principal); M48.061 Spinal stenosis, lumbar region without neurogenic claudication; M47.26 Other spondylosis with radiculopathy, lumbar region; M50.10 Cervical disc disorder with radiculopathy, unspecified cervical region; M79.18 Myalgia, other site; K21.9 Gastro-esophageal reflux disease without esophagitis; E78.00 Pure hypercholesterolemia, unspecified; M19.90 Unspecified osteoarthritis, unspecified site; Z85.828 Personal history of other malignant neoplasm of skin; Z79.899 Other long term (current) drug therapy; Z98.890 Other specified postprocedural states; Z87.891 Personal history of nicotine dependence; Z88.0 Allergy status to penicillin; Z88.8 Allergy status to other drugs, medicaments and biological substances
CPT/HCPCS: 62323; J1100; Q9965